=== PATIENT | male | born 1945 | race Caucasian/White ===

== ENCOUNTER 2020-10-28 19:19 | Outpatient (REF) | payer SELFPAY ==
[2020-10-28 19:49] LABS: Abs Immature Grans 0.03 10^3/uL (0.0-0.06); Absolute Basophil Count 0.11 10^3/uL (0.0-0.2); Absolute Eosinophil Count 0.47 10^3/uL (0.0-0.7); Absolute Lymphocyte Count 0.92 10^3/uL (1.2-3.4); Absolute Neutrophil Count 4.76 10^3/uL (1.2-6.7); Basophils % 1.6; Eosinophils % 6.7; HCT 31.7 % (40.0-50.0); HGB 10.4 g/dL (13.5-17.5); Immature Grans % 0.4; Lymphocytes % 13.2; MCH 31.7 pg (27.0-33.0); MCHC 32.8 % (32.0-36.0); MCV 96.6 fL (80-95); MPV 9.9 fL (8.0-11.0); Neutrophils % 68.1; Nucleated RBC 0 %; Platelet Count 72 10^3/uL (130-400); RBC 3.28 10^6/uL (4.36-5.78); RDW 15.7 % (11.8-14.1); RDW-SD 54.8 fL; WBC 6.99 10^3/uL (4.4-10.8)
[2020-10-28 19:57] LABS: Ammonia 135 umol/L (11-32)
[2020-10-28 20:00] LABS: Anion Gap 8.8 mmol/L (3-11); BUN 29 mg/dL (7-18); CO2 25.2 mmol/L (21.0-32.0); CREATININE 2.1 mg/dL (0.70-1.30); Chloride 105 mmol/L (98-107); Estimated GFR 30.86 (mL/min/1.73m2); Glucose 216 mg/dL (74-106); Sodium 139 mmol/L (136-145)
[2020-10-28 20:01] LABS: Calcium 8.4 mg/dL (8.5-10.1)
[2020-10-28 20:13] LABS: Diff Comment Agrees w/ Instrument; RBC Morphology Normal
[2020-10-31 15:37] LABS: COVID-19 RT-PCR Result Not Detected ((See Note))
== END 2020-10-28 19:20 | disposition home or self-care (01) ==
LOC: NCHCN 19:19
PROVIDERS: Visit Provider Family Medicine
DX: E11.9 Type 2 diabetes mellitus without complications (principal); K72.90 Hepatic failure, unspecified without coma; K76.6 Portal hypertension
CPT/HCPCS: 80048; U0003; 82140; 85025

== ENCOUNTER 2020-10-30 08:38 | Inpatient (IN) | payer MEDICARE, SELFPAY ==
[2020-10-30] VITALS (110 sets, daily range): BP systolic 87–168; BP diastolic 46–111; PULSE 50–95; RESP 8–22; TEMP 35.7–36.8; O2SAT 97–100
--- NOTE | 2020-10-30 08:30 | RT.EKG_ITS ---
APPROVED REPORT Exam: Resting ECG Patient Location: E HR:85 bpm ECG Measurements Heart Rate 85 AXIS TN [id number] P [id number] QRSd 100 QRS -10 QT 415 T 21 QTc 493 Conclusion Atrial fibrillation...V-rate 62-130, irreg A-activity Ventricular premature complex...V complex w/ short R-R interval Borderline ST depression, anterior leads...ST <-0.07mV, V2-V4 Physician: No STEMI, no prior for comparison
[2020-10-30] MEDS: Etomidate 20 MG/10 ML VIAL IVP (09:02)
[2020-10-30] MEDS: Rocuronium 50 MG/5 ML SYR 100 MG IVP (09:04)
[2020-10-30 09:06] LABS: Lactate 2.3 mmol/L (0.6-1.4)
[2020-10-30 09:08] LABS: Abs Immature Grans 0.02 10^3/uL (0.0-0.06); Absolute Basophil Count 0.08 10^3/uL (0.0-0.2); Absolute Eosinophil Count 0.48 10^3/uL (0.0-0.7); Absolute Lymphocyte Count 0.95 10^3/uL (1.2-3.4); Absolute Monocyte Count 0.63 10^3/uL (0.1-0.8); Absolute Neutrophil Count 4.76 10^3/uL (1.2-6.7); Basophils % 1.2; Eosinophils % 6.9; HCT 27.8 % (40.0-50.0); HGB 9.6 g/dL (13.5-17.5); Immature Grans % 0.3; Lymphocytes % 13.7; MCH 32.3 pg (27.0-33.0); MCHC 34.5 % (32.0-36.0); MCV 93.6 fL (80-95); MPV 8.8 fL (8.0-11.0); Monocytes % 9.1; Neutrophils % 68.8; Nucleated RBC 0 %; RBC 2.97 10^6/uL (4.36-5.78); RDW 15.5 % (11.8-14.1); RDW-SD 52.1 fL; WBC 6.92 10^3/uL (4.4-10.8)
[2020-10-30] MEDS: fentaNYL 100 MCG/2 ML VIAL (09:09)
[2020-10-30] MEDS: PROPOFOL 1,000 MG/100 ML BTL 11.856 MG IVPB (09:10)
[2020-10-30 09:21] LABS: INR 1.4 (0.9-1.1); PTT Activated 32.3 sec (21.0-27.5); Prothrombin Time 13.8 sec (9.3-11.0)
[2020-10-30 09:26] LABS: Platelet Count 68 10^3/uL (130-400)
--- NOTE | 2020-10-30 09:26 | DI.RAD_ITS ---
EXAM: XR PORTABLE CHEST AP POST LINE CLINICAL HISTORY: post intubation. TECHNIQUE: 2D digital imaging was performed. COMPARISON: No exams were available for comparison FINDINGS: The patient is intubated. Distal tip of the endotracheal tube is 3 cm above the kelly. Satisfactor y position. Mild cardiomegaly. The mediastinum is not widened. Multiple healed right-sided rib fractures. Some infiltrate is evidence of both lungs. No large pleu ral effusions evident on this portable view. Degenerative changes in the shoulders. IMPRESSION: Patchy infiltrates both lungs. No pleural effusions. Healed right rib fractures. No pneumothorax. Endotracheal tube is in satisfactory position. DATA REPOSITORY: RADIATION DOSE DELIVERED: All CT scans at this facility use at least one of these dose optimization techniques: automated exposure control; mA and/or kV adjustment per patient size (includes targeted e xams where dose is matched to clinical indication); or iterative reconstruction.
[2020-10-30 09:27] LABS: Diff Comment Diff Reviewed; RBC Morphology Normal
[2020-10-30 09:29] LABS: ALT 30 U/L (16-63); AST 33 U/L (15-37); Albumin 2.5 g/dL (3.4-5.0); Alkaline Phosphatase 126 U/L (46-116); Anion Gap 6.4 mmol/L (3-11); BUN 25 mg/dL (7-18); Bilirubin, Total 2.5 mg/dL (0.2-1.0); CO2 26.6 mmol/L (21.0-32.0); CREATININE 2.1 mg/dL (0.70-1.30); Chloride 109 mmol/L (98-107); Estimated GFR 30.86 (mL/min/1.73m2); Glucose 168 mg/dL (74-106); Sodium 142 mmol/L (136-145); TSH (W/Ref FT4) 1.71 uIU/mL (0.36-3.74); Total Protein 6.4 g/dL (6.4-8.2); Troponin I < 0.05 ng/mL (<0.06)
[2020-10-30 09:48] LABS: BE 1 mmol/L (-2-3); HCO3 25 mmol/L (22-26); pCO2 40 mmHg (35-45); pO2 320 mmHg (80-105)
[2020-10-30 09:49] LABS: FIO2 70 %; Site Right Radial; sO2 > 99 % (95-98)
[2020-10-30 09:51] LABS: Bilirubin Negative (Negative); Blood Negative (Negative); Clarity Clear (Clear); Glucose Negative (Negative); Ketones Negative (Negative); Leukocyte Esterase Negative (Negative); Nitrite Negative (Negative); Urobilinogen 0.2 EU/dL (Up TO 0.2); pH 5.5 (5-8)
--- NOTE | 2020-10-30 09:51 | DI.VRAD_ITS ---
PROCEDURE INFORMATION: Exam: XR Chest Exam date and time: 10/30/2020 9:20 AM Age: 74 years old Clinical indication: Device placement; Ett placement (vent status); Patient HX: Post intubation TECHNIQUE: Imaging protocol: XR of the chest. Views: 1 view. COMPARISON: No relevant prior studies available. FINDINGS: Tubes, catheters and devices: An endotracheal tube is present with its tip tip 3.8 cm above the kelly. Lungs: Patchy hazy infiltrates are present in the right lung which may represent pneumonia. Pleural spaces: Unremarkable. No pleural effusion. No pneumothorax. Heart/Mediastinum: The heart is not enlarged. There is calcification of the aorta. Bones/joints: There are multiple old healed right rib fractures. Prominent degenerative disease is present in the right shoulder joint. IMPRESSION: 1. The tip of the endotracheal tube is 3.8 cm above the kelly. 2. Patchy hazy right pulmonary infiltrates suspicious for pneumonia. Dictated and Authenticated by: Vaibhav Page MD. Ordering:THELMA Azar MD
--- NOTE | 2020-10-30 10:46 | W.ED.GENAD ---
Discharge Plan Disposition Patient Disposition: [facility] INPATIENT Condition: Serious Discharge Details Chief Complaint: AMS/LOC Clinical Impression: Encephalopathy, hepatic, Thrombocytopenia, Endotracheally intubated, Obtunded, Pneumonia Primary Care Provider: Unknown,Unknown ED Provider: Doe Hutchinson Home Meds and New Rx's Prescriptions: No Action Glucagon Emergency Kit 1 mg Kit 1 mg PRNRF: 0 torsemide 20 mg Tablet 40 mg RF: 0 dextrose [Glucose Gel] 40 % Gel 15 ml PO PRNRF: 0 venlafaxine 150 mg Capsule,Extended Release 24hr 150 mg PO RF: 0 magnesium hydroxide 400 mg/5 mL Suspension 400 mg PRNRF: 0 insulin aspart U-100 [Novolog U-100 Insulin aspart] 100 unit/mL Solution RF: 0 Fleet Enema 19-7 gram/118 mL Enema 1 ml MA RF: 0 omeprazole 20 mg Capsule,Delayed Release(Dr/Ec) 20 mg RF: 0 propranolol 20 mg Tablet 20 mg RF: 0 ondansetron 4 mg Tablet,Disintegrating 4 mg PRNRF: 0 spironolactone 50 mg Tablet 50 mg RF: 0 calcium carbonate 1,000 mg Tablet 1,000 mg PO RF: 0 heparin (porcine) 5,000 unit/0.5 mL Syringe 5,000 unit RF: 0 carboxymethylcellulose sodium 0.5 % Dropperette 1 drp RF: 0 lactulose 10 gram/15 mL Solution 15 ml RF: 0 acetaminophen 325 mg Capsule 325 mg RF: 0 Lantus Solostar U-100 Insulin 100 unit/mL (3 mL) Insulin Pen 40 unit SUBCUT RF: 0 rifaximin 550 mg Tablet 550 mg RF: 0 Medical Decision Making This is a 74-year-old male with a past medical history of liver failure, intermittent episodes of chronic encephalopathy, history of atrial fibrillation not on blood thinners currently, chronic anemia, diastolic heart failure, cervicalgia, lumbar radiculopathy, diabetes mellitus, history of alcohol dependence, hypertension, who presents for altered mental status. Patient was recently [facility], for hepatic encephalopathy and then recently transitioned recently transitioned to [facility] just 24 to 48 hours ago per EMS report. This morning when he was checked for feeding he was unresponsive, and otherwise altered. He could not be aroused, vitals were stable though. Blood sugar was stable. EMS was called, they do attempted to arouse the patient and were unsuccessful. Patient was brought to the ER. The patient cannot add any additional historical components. All of the patient's past medical history is otherwise garnered from paperwork from his most recent stay at the [facility]. Per EMS and staff at health [facility] rehab the patient is full code Exam demonstrates an obtunded and altered patient, vital signs are stable. Respiratory rate and respiratory status appears notably stable. GCS is between 3 and 5 secondary to what appears to be a chronic flexion of the upper extremities. No asterixis that I can elicit. Patient does not have an intact gag reflex. Airway is not currently protected. Intubation was performed by Demarco Colon, there were no complications, intubation successful. I was at bedside for the entire procedure. We will evaluate for cause of his altered mental status but Fauzia fact it is secondary to hepatic encephalopathy. We will get a CT scan of the head, monitor closely and admit. We will reach out to the [facility] for potential admission. EKG is unremarkable aside for A. fib. 1221 Laboratory work-up is returned, patient has no elevation in his white count, hemoglobin is 9.6 which is stable from when he was at the [facility]. Platelet is 68, but he does have a history of thrombocytopenia. INR PT and PTT are all slightly elevated likely secondary to his chronic liver failure, initial lactate is 2.3, likely hepatic related from his hepatic failure, chest x-ray does show evidence of patchy infiltrate on the right, suspect pneumonia, hospital-acquired versus aspiration. Will add Vanco and Zosyn. Covid testing is negative. Creatinine is 2.1, BUN 25. Ammonia is 130, and likely the cause of his current encephalopathy. CT head negative, thyroid function normal. [facility]inalysis [facility] stated at [facility] they cannot [facility] the patient in his current state. Patient will need to be admitted here for continued observation management and potential specialist consultation if indicated. I discussed the case with the hospitalist Dr. Glass, she agrees with the assessment and plan. We will place an NG tube down here. I have extensively reviewed the treatment plan with the patient. I have addressed all patient concerns at this time. I have also discussed the plan with the admitting physician and they agree with the current assessment and plan and have agreed to assume responsibility for the patient. All parties demonstrate verbal understanding and agreement with our assessment and plan at this time. The documentation in this chart was dictated using [employer] dictation software. Please excuse any dictation errors. FINDINGS: Tubes, catheters and devices: An endotracheal tube is present with its tip tip 3.8 cm above the kelly. Lungs: Patchy hazy infiltrates are present in the right lung which may represent pneumonia. Pleural spaces: Unremarkable. No pleural effusion. No pneumothorax. Heart/Mediastinum: The heart is not enlarged. There is calcification of the aorta. Bones/joints: There are multiple old healed right rib fractures. Prominent degenerative disease is present in the right shoulder joint. IMPRESSION: 1. The tip of the endotracheal tube is 3.8 cm above the kelly. 2. Patchy hazy right pulmonary infiltrates suspicious for pneumonia. Thank you for allowing us to participate in the care of your patient FINDINGS: Brain: There is mild generalized chronic atrophy. There is mild decreased white matter density consistent with chronic small vessel white matter ischemia. No intracranial hemorrhage, edema or other acute abnormalities are seen in the brain. There is mild mineralization of the basal ganglia. Cerebral ventricles: No ventriculomegaly. Bones/joints: Unremarkable. No acute fracture. Paranasal sinuses: There is a small air-fluid level in the right maxillary sinus. Mastoid air cells: Visualized mastoid air cells are well aerated. Soft tissues: Unremarkable. IMPRESSION: 1. Mild chronic atrophy and mild white matter ischemic changes. 2. No acute intracranial abnormality. Thank you for allowing us to participate in the care of your patiet Dictated and Authenticated by: Vaibhav Page MD 10/30/2020 11:10 AM Eastern Time ([place] & [place]) HPI General Date/Time Provider Initiated Documentation: 10/30/20 08:42. HPI Narrative: This is a 74-year-old male with a past medical history of liver failure, intermittent episodes of chronic encephalopathy, history of atrial fibrillation not on blood thinners currently, chronic anemia, diastolic heart failure, cervicalgia, lumbar radiculopathy, diabetes mellitus, history of alcohol dependence, hypertension, who presents for altered mental status. Patient was recently admitted at [facility], for hepatic encephalopathy and then recently transitioned recently transitioned to [facility] just 24 to 48 hours ago per EMS report. This morning when he was checked for feeding he was unresponsive, and otherwise altered. He could not be aroused, vitals were stable though. Blood sugar was stable. EMS was called, they do attempted to arouse the patient and were unsuccessful. Patient was brought to the ER. The patient cannot add any additional historical components. All of the patient's past medical history is otherwise garnered from paperwork from his most recent stay at the [facility]. Per EMS and staff at health [facility] rehab the patient is full code Related Data Home Medications Medication Instructions Recorded Confirmed acetaminophen 325 mg 10/30/20 calcium carbonate 1,000 mg PO 10/30/20 carboxymethylcellulose sodium 1 drp 10/30/20 dextrose [Glucose Gel] 15 ml PO PRN 10/30/20 glucagon [Glucagon Emergency Kit] 1 mg PRN 10/30/20 heparin (porcine) 5,000 unit 10/30/20 insulin aspart U-100 [Novolog 10/30/20 U-100 Insulin aspart] insulin glargine [Lantus Solostar 40 unit SUBCUT 10/30/20 10/30/20 U-100 Insulin] lactulose 15 ml 10/30/20 magnesium hydroxide 400 mg PRN 10/30/20 omeprazole 20 mg 10/30/20 ondansetron 4 mg PRN 10/30/20 propranolol 20 mg 10/30/20 rifaximin 550 mg 10/30/20 sodium phosphates [Fleet Enema] 1 ml MA 10/30/20 spironolactone 50 mg 10/30/20 torsemide 40 mg 10/30/20 venlafaxine 150 mg PO 10/30/20 Allergies Allergy/AdvReac Type Severity Reaction Status Date / Time adhesive tape Allergy Unverified 10/30/20 08:53 General Stated Complaint: AMS/LOC LEA: 1 Review of Systems All systems reviewed & are unremarkable except as noted in HPI and below PFSH Social History Smoking risk assessment performed?: No Additional Social history: resident @ [facility]&, unable to answer any questions at this time Exam Narrative Exam Narrative: 1.Const: Well-nourished, Well-developed, appearing stated age 2.Eyes: PERRL, no conjunctival injection, and symmetrical lids. 3.ENT: Atraumatic external nose and ears. Moist MM. Neck: Symmetric, trachea midline, No thyromegaly. 4.CVS: +S1/S2, No murmurs or gallops. Peripheral pulses 2+ and equal in all extremities. Brisk capillary refill in all extremities. 5.RESP: Unlabored respiratory effort. Clear to auscultation bilaterally. No wheezes rales or rhonchi 6.GI: Soft, Nontender/Nondistended, No hepatosplenomegaly. No guarding or rebound. Ostomy on the patient's left abdomen 7.MSK: Normocephalic/Atraumatic, Extremities w/o deformity or ttp No cyanosis or clubbing, Normal movement of all extremities 8.Skin: Warm, Dry. Chronic bruises throughout the hands and extremities, none around the head. Telangiectasias are present. Chronic anterior rosas skin breakdown, currently bandaged, however evaluation shows no evidence of large ulcer or evidence of active acute wound. 9.Neuro: GCS is somewhat difficult to discern between a 3 and a 5. Patient is flexed for his upper extremities and does resist extension, however he otherwise does not localize to pain. No other significant neurologic components can be seen. Evaluation of gag reflex does not seem to elicit any significant reflex 10.Psych: obtunded Course Vital Signs Vital signs: Vital Signs Pulse 68 10/30/20 09:00 Respiratory Rate 20 10/30/20 09:00 Pulse Oximetry 100 10/30/20 09:00 Temperature 36.8 C 10/30/20 09:22 Temperature Source Skin 10/30/20 09:22 Pulse 82 10/30/20 09:22 Respiratory Rate 9 L 10/30/20 09:22 Blood Pressure 116/65 10/30/20 09:22 Blood Pressure Position Sitting 10/30/20 09:22 Pulse Oximetry 100 10/30/20 09:22 Respiratory End-tidal CO2 33 10/30/20 09:10 Oxygen Delivery Method Room Air 10/30/20 09:22 Oxygen Flow Rate 0 10/30/20 09:22 Fraction of Inspired Oxygen (FIO2) 100 10/30/20 09:10 Comment 10/30/20 09:00 Lab/Test Results Lab/Test Results: 10/30/20 08:44 Blood Blood Culture - Pending 10/30/20 08:44 Blood Blood Culture - Pending Laboratory Tests Range/Units 10/30/20 10/30/20 10/30/20 08:55 08:55 08:55 WBC (4.4-10.8) 10^3/uL 6.92 RBC (4.36-5.78) 10^6/uL 2.97 L Hgb (13.5-17.5) g/dL 9.6 L Hct (40.0-50.0) % 27.8 L MCV (80-95) fL 93.6 MCH (27.0-33.0) pg 32.3 MCHC (32.0-36.0) % 34.5 RDW (11.8-14.1) % 15.5 H Plt Count (130-400) 10^3/uL 68 L MPV (8.0-11.0) fL 8.8 Immature Gran % 0.3 Neutrophils % 68.8 Lymphocytes % 13.7 Monocytes % 9.1 Eosinophils % 6.9 Basophils % 1.2 Nucleated RBC % % 0 Absolute Neutrophils (1.2-6.7) 10^3/uL 4.76 Absolute Lymphocytes (1.2-3.4) 10^3/uL 0.95 L Absolute Monocytes (0.1-0.8) 10^3/uL 0.63 Absolute Eosinophils (0.0-0.7) 10^3/uL 0.48 Absolute Basophils (0.0-0.2) 10^3/uL 0.08 RBC Morphology Normal PT (9.3-11.0) sec INR (0.9-1.1) APTT (21.0-27.5) sec ABG Sample Site ABG pH (7.35-7.45) ABG pCO2 (35-45) mmHg ABG pO2 (80-105) mmHg ABG HCO3 (22-26) mmol/L ABG O2 Saturation (95-98) % ABG Base Excess (-2-3) mmol/L VBG Lactate (0.6-1.4) mmol/L 2.3 H* Oxygen Liter Flow L FiO2 % Sodium (136-145) mmol/L 142 Potassium (3.5-5.1) mmol/L 4.0 Chloride (98-107) mmol/L 109 H Carbon Dioxide (21.0-32.0) mmol/L 26.6 Anion Gap (3-11) mmol/L 6.4 BUN (7-18) mg/dL 25 H Creatinine (0.70-1.30) mg/dL 2.1 H Estimated GFR/1.73 m2 (mL/min/1.73m2) 30.86 Glucose (74-106) mg/dL 168 H Calcium (8.5-10.1) mg/dL 8.0 L Total Bilirubin (0.2-1.0) mg/dL 2.5 H AST (15-37) U/L 33 ALT (16-63) U/L 30 Alkaline Phosphatase (46-116) U/L 126 H Troponin I (<0.06) ng/mL < 0.05 Total Protein (6.4-8.2) g/dL 6.4 Albumin (3.4-5.0) g/dL 2.5 L TSH (0.36-3.74) uIU/mL 1.71 Urine Color Urine Clarity Urine pH Ur Specific N[place]ma Urine Protein Urine Ketones Urine Blood Urine Nitrite Urine Bilirubin Urine Urobilinogen Ur Leukocyte Esterase Urine RBC Urine WBC Ur Epithelial Cells Urine Crystals Urine Bacteria Urine Casts Urine Mucus Urine Other Ur Culture Indicated? Urine Glucose Range/Units 10/30/20 10/30/20 10/30/20 08:55 09:05 09:38 WBC (4.4-10.8) 10^3/uL RBC (4.36-5.78) 10^6/uL Hgb (13.5-17.5) g/dL Hct (40.0-50.0) % MCV (80-95) fL MCH (27.0-33.0) pg MCHC (32.0-36.0) % RDW (11.8-14.1) % Plt Count (130-400) 10^3/uL MPV (8.0-11.0) fL Immature Gran % Neutrophils % Lymphocytes % Monocytes % Eosinophils % Basophils % Nucleated RBC % % Absolute Neutrophils (1.2-6.7) 10^3/uL Absolute Lymphocytes (1.2-3.4) 10^3/uL Absolute Monocytes (0.1-0.8) 10^3/uL Absolute Eosinophils (0.0-0.7) 10^3/uL Absolute Basophils (0.0-0.2) 10^3/uL RBC Morphology PT (9.3-11.0) sec 13.8 H INR (0.9-1.1) 1.4 H APTT (21.0-27.5) sec 32.3 H ABG Sample Site ABG pH (7.35-7.45) ABG pCO2 (35-45) mmHg ABG pO2 (80-105) mmHg ABG HCO3 (22-26) mmol/L ABG O2 Saturation (95-98) % ABG Base Excess (-2-3) mmol/L VBG Lactate (0.6-1.4) mmol/L Oxygen Liter Flow L FiO2 % Sodium (136-145) mmol/L Potassium (3.5-5.1) mmol/L Chloride (98-107) mmol/L Carbon Dioxide (21.0-32.0) mmol/L Anion Gap (3-11) mmol/L BUN (7-18) mg/dL Creatinine (0.70-1.30) mg/dL Estimated GFR/1.73 m2 (mL/min/1.73m2) Glucose (74-106) mg/dL Calcium (8.5-10.1) mg/dL Total Bilirubin (0.2-1.0) mg/dL AST (15-37) U/L ALT (16-63) U/L Alkaline Phosphatase (46-116) U/L Troponin I (<0.06) ng/mL Total Protein (6.4-8.2) g/dL Albumin (3.4-5.0) g/dL TSH (0.36-3.74) uIU/mL Urine Color Cancelled Yellow Urine Clarity Cancelled Clear Urine pH Cancelled 5.5 Ur Specific N[place]ma Cancelled 1.020 Urine Protein Cancelled Negative Urine Ketones Cancelled Negative Urine Blood Cancelled Negative Urine Nitrite Cancelled Negative Urine Bilirubin Cancelled Negative Urine Urobilinogen Cancelled 0.2 Ur Leukocyte Esterase Cancelled Negative Urine RBC Cancelled Urine WBC Cancelled Ur Epithelial Cells Cancelled Urine Crystals Cancelled Urine Bacteria Cancelled Urine Casts Cancelled Urine Mucus Cancelled Urine Other Cancelled Ur Culture Indicated? Cancelled Urine Glucose Cancelled Negative Range/Units 10/30/20 09:45 WBC (4.4-10.8) 10^3/uL RBC (4.36-5.78) 10^6/uL Hgb (13.5-17.5) g/dL Hct (40.0-50.0) % MCV (80-95) fL MCH (27.0-33.0) pg MCHC (32.0-36.0) % RDW (11.8-14.1) % Plt Count (130-400) 10^3/uL MPV (8.0-11.0) fL Immature Gran % Neutrophils % Lymphocytes % Monocytes % Eosinophils % Basophils % Nucleated RBC % % Absolute Neutrophils (1.2-6.7) 10^3/uL Absolute Lymphocytes (1.2-3.4) 10^3/uL Absolute Monocytes (0.1-0.8) 10^3/uL Absolute Eosinophils (0.0-0.7) 10^3/uL Absolute Basophils (0.0-0.2) 10^3/uL RBC Morphology PT (9.3-11.0) sec INR (0.9-1.1) APTT (21.0-27.5) sec ABG Sample Site Right radial ABG pH (7.35-7.45) 7.40 ABG pCO2 (35-45) mmHg 40 ABG pO2 (80-105) mmHg 320 H ABG HCO3 (22-26) mmol/L 25 ABG O2 Saturation (95-98) % > 99 H ABG Base Excess (-2-3) mmol/L 1 VBG Lactate (0.6-1.4) mmol/L Oxygen Liter Flow L Vt 410 rr 15 peep 5 FiO2 % 70 Sodium (136-145) mmol/L Potassium (3.5-5.1) mmol/L Chloride (98-107) mmol/L Carbon Dioxide (21.0-32.0) mmol/L Anion Gap (3-11) mmol/L BUN (7-18) mg/dL Creatinine (0.70-1.30) mg/dL Estimated GFR/1.73 m2 (mL/min/1.73m2) Glucose (74-106) mg/dL Calcium (8.5-10.1) mg/dL Total Bilirubin (0.2-1.0) mg/dL AST (15-37) U/L ALT (16-63) U/L Alkaline Phosphatase (46-116) U/L Troponin I (<0.06) ng/mL Total Protein (6.4-8.2) g/dL Albumin (3.4-5.0) g/dL TSH (0.36-3.74) uIU/mL Urine Color Urine Clarity Urine pH Ur Specific [place] Urine Protein Urine Ketones Urine Blood Urine Nitrite Urine Bilirubin Urine Urobilinogen Ur Leukocyte Esterase Urine RBC Urine WBC Ur Epithelial Cells Urine Crystals Urine Bacteria Urine Casts Urine Mucus Urine Other Ur Culture Indicated? Urine Glucose Procedures Intubation Time out performed: Yes sedative: Etomidate Mg Given: 20 paralytic: Rocuronium Mg Given: 20 Laryngoscope: other (cmac) ET Tube Size: 7 ET Tube Uncuffed: Yes Tube Secured Depth (cm): 21 Tube Secured Location: teeth Tube Placement Confirmation: visualized tube passing through cords and equal breath sounds bilaterally Patient Tolerated Procedure: well Intubation Complications: none
--- NOTE | 2020-10-30 10:47 | DI.CT_ITS ---
EXAM: CT HEAD WO CLINICAL HISTORY: altered. TECHNIQUE: Imaging Protocol: Axial computed tomography images with coronal and sagittal reformatted images were created and reviewed COMPARISON: No exams were available for comparison FINDINGS: There are no skull fractures. There is a small fluid level in the right maxillary sinus consistent with sinusitis. Left maxillary sinus is clear as are the sphenoid and frontal sinuses and ethmoidal air cells. There is no fluid in the mastoid air cells although these are partially sclerotic. There is no evidence of intracranial hemorrhage, mass effect, or shift of midline structures. There are no extra-axial fluid collections. The ventricles are not enlarged or shifted and there is no blo od within the ventricular system nor within the basal cisterns. IMPRESSION: No acute intracranial findings on this noninfused CT scan of the brain. Right maxillary sinusitis. RADIATION DOSE DELIVERED: 1,860.07mGy.cm Total DLP DATA REPOSITORY: All CT scans at this facility are submitted to the National Radiology Data Registry (NRDR) Dose Index Registry (DIR) with the [employer] ([employer]). RADIATION OPTIMIZATION: All CT scans at this facility use at least one of these dose optimization te chniques: automated exposure control; mA and/or kV adjustment per patient size (includes targeted exa ms where dose is matched to clinical indication); or iterative reconstruction.
--- NOTE | 2020-10-30 11:10 | DI.VRAD_ITS ---
PROCEDURE INFORMATION: Exam: CT Head Without Contrast Exam date and time: 10/30/2020 10:37 AM Age: 74 years old Clinical indication: Altered mental status/memory loss; Other: ? TECHNIQUE: Imaging protocol: Computed tomography of the head without contrast. Radiation optimization: All CT scans at this facility use at least one of these dose optimization techniques: automated exposure control; mA and/or kV adjustment per patient size (includes targeted exams where dose is matched to clinical indication); or iterative reconstruction. COMPARISON: No relevant prior studies available. FINDINGS: Brain: There is mild generalized chronic atrophy. There is mild decreased white matter density consistent with chronic small vessel white matter ischemia. No intracranial hemorrhage, edema or other acute abnormalities are seen in the brain. There is mild mineralization of the basal ganglia. Cerebral ventricles: No ventriculomegaly. Bones/joints: Unremarkable. No acute fracture. Paranasal sinuses: There is a small air-fluid level in the right maxillary sinus. Mastoid air cells: Visualized mastoid air cells are well aerated. Soft tissues: Unremarkable. IMPRESSION: 1. Mild chronic atrophy and mild white matter ischemic changes. 2. No acute intracranial abnormality. Dictated and Authenticated by: Vaibhav Page MD. Ordering:THELMA Azar MD
[2020-10-30] MEDS: Normal Saline 500 ML IV (11:23)
[2020-10-30] MEDS: PIPERACILLIN/TAZO 3.375 GM in Normal Saline 50 ML IVPB ×2 (11:39→17:29)
[2020-10-30 11:49] LABS: COVID-19 PCR Negative (Negative)
[2020-10-30 11:52] LABS: Ammonia 130 umol/L (11-32)
[2020-10-30 12:03] LABS: BE 1 mmol/L (-2-3); HCO3 25 mmol/L (22-26); pCO2 36 mmHg (35-45); pH 7.45 (7.35-7.45); pO2 107 mmHg (80-105); sO2 99 % (95-98); tCO2 23 mmol/L (23-27)
[2020-10-30 12:05] LABS: FIO2 21 %; Site Right Radial
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
--- NOTE | 2020-10-30 12:27 | DI.RAD_ITS ---
EXAM: XR PORTABLE CHEST AP POST LINE CLINICAL HISTORY: gastric tube placement confirmation. TECHNIQUE: 2D digital imaging was performed. COMPARISON: CR,XR XR PORTABLE CHEST AP POST LINE from 10/30/2020 FINDINGS: Patient is intubated. Distal tip of the endotracheal tube is in satisfactory position above the flaco na. An NG tube is now noted in the stomach. Distal aspect of the NG tube is in the proximal stomach . Some infiltrate in both lung bases is noted. No pulmonary edema. No obvious pleural effusions. IMPRESSION: No acute pulmonary findings on this single AP portable view of the chest. DATA REPOSITORY: RADIATION DOSE DELIVERED: All CT scans at this facility use at least one of these dose optimization techniques: automated exposure control; mA and/or kV adjustment per patient size (includes targeted e xams where dose is matched to clinical indication); or iterative reconstruction.
[2020-10-30] MEDS: VANCOMYCIN 2,000 MG in Normal Saline 500 ML 333.3333 MG IVPB (12:32)
--- NOTE | 2020-10-30 12:42 | DI.VRAD_ITS ---
PROCEDURE INFORMATION: Exam: XR Chest Exam date and time: 10/30/2020 12:25 PM Age: 74 years old Clinical indication: Device placement; Other: Og tube TECHNIQUE: Imaging protocol: XR of the chest. Views: 1 view. COMPARISON: CR XR PORTABLE CHEST AP POST LINE 10/30/2020 9:18 AM FINDINGS: Tubes, catheters and devices: An endotracheal tube is present with the tip about 5 cm above the kelly. A orogastric tube is present with the tip projecting in the stomach in the left upper quadrant. Lungs: There is mild patchy infiltrate in the right base which has improved since previous study. Pleural spaces: Unremarkable. No pleural effusion. No pneumothorax. Heart/Mediastinum: Unremarkable. No cardiomegaly. Bones/joints: Unremarkable. IMPRESSION: 1. Satisfactory position of the endotracheal tube and orogastric tube. 2. Improving basilar infiltrates. Dictated and Authenticated by: Vaibhav Page MD. Ordering:THELMA Azar MD
--- OUTSIDE RECORDS SUMMARY | 2020-10-30 12:54 | XMS_ITS ---
:1945 Author Care Team Providers Name Role Phone DENISE GIRON Primary Care Provider [phone] RASHARD MELGAR General Surgeon [phone] Allergies Code Code System Name Reaction Severity Status Onset Adhesive Tape ? ? Active ? NKDA ? Medications Name Status Start Date Stop Date ? ? acetaminophen Completed 05/31/2020 07/14/2020 500 mg- take two tabs by mouth twice daily as needed for pain acetaminophen 500 mg tablet Active 07/14/2020 Not available Take 2 tablets twice a day by oral route as needed. Blood Glucose Test strips Active 07/14/2020 Not av ailable Take 1 strip 5 times a day by miscell. route. camphor-menthol 0.5 %-0.5 % lotion Active 07/14/2020 Not available 1 application as needed by topical route. carboxymethylcellulose 0.5 %-glycerin 0.9 % (PF) eye drops Compl eted 05/31/2020 07/14/2020 Apply 1 drop 3 times a day by ophthalmic route as needed. carboxymethylcellulose sodium 0.5 % eye drops Active Not available Apply 1 drop 4 times a day by ophthalmic route as needed. cephalexin 500 mg tablet Completed ? 018 Take 1 tablet every 6 hours by oral route for 5 days. clindamycin HCl 300 mg capsule Completed 05/31/2020 0 07/14/2020 Take 1 capsule 4 times a day by oral route for 10 days. clobetasol 0.05 % topical cream Active 07/14/2020 Not available Apply 1 application twice a day by topical route as needed. ferrous sulfate 325 mg (65 mg iron) tablet Completed 04/1805/31/2020 Take 1 tablet twice a day by oral route. Fish Oil 1,000 mg (120 mg-180 mg) capsule Completed 201805/31/2020 Take 1 capsule twice a day by oral route. furosemide 20 mg tablet Completed 06/04/2018 06/25/20 18 Take 2 tablets every day by oral route. gabapentin 300 mg capsule Active 07/14/2020 Not av ailable Take 1 capsule 3 times a day by oral route. Humalog KwikPen (U-100) Insulin 100 unit/mL subcutaneous Active 07/14/2020 Not available Sliding Scale <100 zero units, 101-130 2 un, 131-150 3 un, 151-170 4 un, 171- 190 5 un, 191-210 6 un, 211-230 7 un, 231-250 8 un, 251-270 9 un, 271-290 10 un. insulin glargine (U-100) 100 unit/mL (3 mL) subcutaneous pen Act papi 07/14/2020 Not available Inject 70 units every day by subcutaneous route at bedtime. Lactulose (for Encephalopathy) 10 g/15 mL oral solution Complete d 04/18/2019 05/31/2020 Take 30 mL 3 times a day by oral route. increased from QD lactulose 10 gram/15 mL (15 mL) oral solution Active Not available Take 30 mL 4 times a day by oral route. lactulose 10 gram/15 mL oral solution Completed 06/04/2018 06/25/2018 Take 30 mL 4 times a day by oral route. Lantus U-100 Insulin 100 unit/mL subcutaneous solution Completed 04/18/2019 05/31/2020 Inject 40 units twice a day by subcutaneous route. dose increased from 30 units BID melatonin 3 mg tablet Active 07/14/2020 Not availa ble Take 1 tablet every day by oral route at bedtime. metformin 1,000 mg tablet Completed 05/19/20182017 Take 1 tablet twice a day by oral route. metolazone 2.5 mg tablet Active 07/14/2020 Not maren ilable Take 1 tablet 3 times a week by oral route as directed. metolazone 5 mg tablet Active ? Not avail able Take 1 tablet every day by oral route for 7 days. Miralax 17 gram/dose oral powder Active 07/14/2020 Not available Take 17 g every day by oral route. Motrin IB 200 mg tablet Completed 05/19/2018 06/04/20 18 Take 2 tablets every 6 hours by oral route as needed. Nitrostat 0.4 mg sublingual tablet Active 07/14/[address] 1 TABLET (0.4 MG) BY SUBLINGUAL R OUTE EVERY 5 MINUTES NEEDED FOR CHEST PAIN. DO NOT EXCEED 3 DOSES IN 15 MINUTES. Novolog Flexpen U-100 Insulin aspart 100 unit/mL (3 mL) subc utaneous Completed 04/18/2019 05/31/2020 Inject 1 unit 3 times a day by subcutaneous route as needed. omeprazole 20 mg capsule,delayed release Active 021 Not available Take 1 capsule every day by oral route in the morning. potassium chloride 40 mEq/L in 0.9 % sodium chloride intrave nous Completed 04/18/2019 05/31/2020 75 mL/hr continuous potassium chloride ER 10 mEq tablet,extended release Active 07/14/2020 Not available Take 2 tablets every day by oral route as directed. potassium chloride ER 20 mEq tablet,extended release Completed ? 05/19/2018 Take 1 tablet twice a day by oral route. pravastatin 10 mg tablet Completed 04/18/2019 020 Take 1 tablet every day by oral route in the evening. propranolol 20 mg tablet Active 07/14/2020 Not maren ilable Take 1 tablet twice a day by oral route. propranolol ER 80 mg capsule,24 hr,extended release Completed 05/19/2018 06/04/2018 Take 1 capsule every day by oral route in the morning. rifaximin 550 mg tablet Active 07/14/2020 Not avai lable Take 1 tablet twice a day by oral route. Silvadene 1 % topical cream Completed ? 05/09 APPLY A 1/16 INCH (1.5 MM) THICK LAYER TO ENTIRE BURN AREA BY TOPICALROUTE 2 TIMES PER DAY simethicone 80 mg chewable tablet Active 07/14/2020 Not available Take 1 tablet 3 times a day by oral route as needed. spironolactone 100 mg tablet Active 07/14/2020 Not available Take 1 tablet every day by oral route. spironolactone 25 mg tablet Completed 04/18/201905/09 Take 2 tablets every day by oral route. terbinafine HCl 1 % topical cream Active 07/14/2020 Not available APPLY TO THE AFFECTED AND SURROUNDING A REAS OF SKIN BY TOPICAL ROUTE twice a day as needed thiamine HCl (vitamin B1) 100 mg tablet Active 07/14/19 21 Not available Take 1 tablet every day by oral route. torsemide 100 mg tablet Active 07/14/2020 Not avai lable Take 1 tablet twice a day by oral route as directed. torsemide 20 mg tablet Completed 04/18/2019 0 Take 20 mg every 24 hours by oral route. decreased from 80 mg QD trazodone 100 mg tablet Active 07/14/2020 Not avai lable Take 100 mg every 24 hours by oral route at bedtime. venlafaxine 75 mg tablet Completed 04/18/2019 020 Take 1 tablet every day by oral route in the morning. venlafaxine ER 150 mg capsule,extended release 24 hr Active 07/14/2020 Not available Take 1 capsule every day by oral route. Notes: Aloh/Diph/Mag/Lido/Simet (Magic Mouthwash); 1 tsp once daily PRN; Menthol-Methyl Salicylate 10-15% topical every 6 hours PRN; carboxymethylcellulose 0.5% both eyes 4 times daily PRN; Med Rec Updated 10/16/20 mso per [facility] Problems Name Status Onset Date Source ? Type 2 Diabetes Mellitus Active 05/15/2018 ? Diabetic Peripheral Neuropathy Active 05/15/2018 ? Hyperlipidemia Active 05/15/2018 ? Secondary Thrombocytopenia Active 05/15/2018 ? Alcohol Dependence Active 05/15/2018 ? Insomnia Active 05/15/2018 ? Aortic Valve Stenosis Active 05/15/2018 ? Atrial Fibrillation Active 05/15/2018 ? Heart Failure with Normal Ejection Active 05/15/2018 ? 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 Hepatic Encephalopathy Active 05/15/2018 ? Gallstone Unknown 05/15/2018 ? Osteoarthritis Active 05/15/2018 ? Degeneration of Lumbar Intervertebral Active 05/15/2018 ? Disc Lumbar Radiculopathy Active 05/15/2018 ? Amnesia Unknown 05/15/2018 ? Splenomegaly Active 05/15/2018 ? 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 Diabetes Mellitus Anemia Active 06/24/2018 ? Depressive Disorder Active 06/24/2018 ? Hypertensive Disorder Active 06/24/2018 ? Gastroesophageal Reflux Disease Active 06/24/2018 ? History of Gastrointestinal Bleed Active 06/24/2018 ? 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 Mood Disorder Active ? History Pain Active ? History Procedures Date Name Performed by ? 05/13/2018 Release [employer] Information not available ? Hernia Repair Ventral Information not av ailable Results Lab Results Date Name Specimen Result Interpretation Description Value Range Status Address ? 08/04/2020 Renal S High g/r 152 mg/dL 74-106 Final [place] Function mg/dL [facility], Serum Hosp ital Lab (Internal) : [address] ? ? S High Bun 56 mg/dL 9-20 Final [place] mg/dL [facility] [address] ? ? S High Crea 2.50 mg/dL 0.66-1.25 Final [facility] mg/dL [facility] ([facility] : [address] ? ? S ? Ca 8.5 mg/dL 8.4-10.2 Final [place] mg/dL [facility] ([facility] : [address] ? ? S ? Phos 3.3 mg/dL 2.5-4.5 Final [place] mg/dL [facility] ([facility] : [address] ? ? S Low Na 134 mmol/L 137-145 Final [place] mmol/L [facility] ([facility] : [address] ? ? S ? K 4.2 mmol/L 3.5-5.1 Final [place] mmol/L [facility] ([facility] : [address] ? ? S ? Cl 99 mmol/L 98-107 Final [place] mmol/L [facility] (Internal) : [address] ? ? S ? Tco2 27.0 22.0-30.0 Final [place] mmol/L mmol/L [facility] ([facility]) : [address] ? ? S Low Alb 2.8 g/dL 3.5-5.0 Final [place] g/dL [facility] ([facility] : [address] ? ? S Low GFR 25 >89 Final [facility] (Calc) [facility] : [address] 07/14/2020 Cbc BLD ? Wbc 5.7 5.0-10.0 Final Nort h 10*3/uL 10*3/uL [facility] ([facility] : [address] ? ? BLD Low Rbc 3.48 4.60-6.00 Final [place] 10*6/uL 10*6/uL [facility] (Internal) : [address] ? ? BLD Low Hgb 11.0 g/dL 14.0-18.0 Final Nort h g/dL [facility] (Internal) : [address] ? ? BLD Low Hct 32.5 % 41.0-51.0 Final [facility] (Internal) : [address] ? ? BLD ? Mcv 93.4 fL 80.0-96.0 Final [facility] L [facility] (Internal) : [address] ? ? BLD ? Mch 31.6 pg 26.0-32.0 Final [facility] L ab (Internal) : [address] ? ? BLD ? Mchc 33.8 g/dL 31.0-35.0 Final Nort h g/dL [facility] (Internal) : [address] ? ? BLD High Rdw 14.8 % 11.5-14.5 Final [facility] (Internal) : [address] ? ? BLD CRITICAL Plt 47 10*3/uL 130-450 Final [place] LOW 10*3/uL [facility] (Internal) : [address] ? ? BLD ? Anc 3.41 ? Final [place] 10*3/uL [facility] (Internal) : [address] 07/14/2020 BMP, Serum or S High g/r 332 mg/dL 74-106 Fin al [place] Plasma mg/dL [facility] (Internal) : [address] ? ? S High Bun 61 mg/dL 9-20 Final [place] mg/dL [facility] (Internal) : [address] ? ? S High Crea 2.80 mg/dL 0.66-1.25 Final [place] mg/dL [facility] (Internal) : [address] ? ? S ? Ca 9.4 mg/dL 8.4-10.2 Final [place] mg/dL [facility] ([facility] : [address] ? ? S Low Na 136 mmol/L 137-145 Final [place] mmol/L [facility] ([facility] : [address] ? ? S ? K 3.6 mmol/L 3.5-5.1 Final [place] mmol/L [facility] ([facility] : [address] ? ? S Low Cl 92 mmol/L 98-107 Final [place] mmol/L [facility] ([facility] : [address] ? ? S High Tco2 37.0 22.0-30.0 Final [place] mmol/L mmol/L [facility] ([facility] : [address] 07/13/2020 BMP, Serum or S High g/r 167 mg/dL 74-106 Fin al [place] Plasma mg/dL [facility] ([facility] : [address] ? ? S High Bun 62 mg/dL 9-20 Final [place] mg/dL [facility] ([facility] : [address] ? ? S High Crea 2.60 mg/dL 0.66-1.25 Final [place] [facility] mg/dL [facility] ([facility] : [address] ? ? S ? Ca 9.4 mg/dL 8.4-10.2 Final [place] mg/dL [facility] ([facility] : [address] ? ? S ? Na 140 mmol/L 137-145 Final [place] mmol/L [facility] ([facility] : [address] ? ? S ? K 3.5 mmol/L 3.5-5.1 Final [place] mmol/L [facility] ([facility] : [address] ? ? S ? Cl 100 mmol/L 98-107 Final [place] mmol/L [facility] ([facility] : [address] ? ? S High Tco2 32.0 22.0-30.0 Final [place] mmol/L mmol/L [facility] ([facility] : [address] 07/13/2020 Cbc BLD ? Wbc 6.4 5.0-10.0 Final Nort h 10*3/uL 10*3/uL [facility] (Internal) : [address] ? ? BLD Low Rbc 3.45 4.60-6.00 Final [place] 10*6/uL 10*6/uL [facility] (Internal) : [address] ? ? BLD Low Hgb 11.1 g/dL 14.0-18.0 Final Nort h g/dL [facility] (Internal) : [address] ? ? BLD Low Hct 32.6 % 41.0-51.0 Final [facility] L [facility] (Internal) : [address] ? ? BLD ? Mcv 94.5 fL 80.0-96.0 Final [facility] L [facility] (Internal) : [address] ? ? BLD High Mch 32.2 pg 26.0-32.0 Final [facility] L ab (Internal) : [address] ? ? BLD ? Mchc 34.0 g/dL 31.0-35.0 Final Nort h g/dL [facility] (Internal) : [address] ? ? BLD High Rdw 15.2 % 11.5-14.5 Final [facility] L ab (Internal) : [address] ? ? BLD CRITICAL Plt 46 10*3/uL 130-450 Final [place] LOW 10*3/uL [facility] (Internal) : [address] ? ? BLD ? Anc 4.12 ? Final [place] 10*3/uL [facility] (Internal) : [address] 06/06/2020 Renal S High g/r 362 mg/dL 74-106 Final [place] Function mg/dL [facility], Serum Hosp ital Lab (Internal) : [address] ? ? S High Bun 39 mg/dL 9-20 Final [place] mg/dL [facility] (Internal) : [address] ? ? S High Crea 2.10 mg/dL 0.66-1.25 Final [facility] mg/dL [facility] ([facility] : [address] ? ? S ? Ca 8.6 mg/dL 8.4-10.2 Final [place] mg/dL [facility] : [address] ? ? S ? Phos 2.8 mg/dL 2.5-4.5 Final [place] mg/dL [facility] ([facility] : [address] ? ? S Low Na 136 mmol/L 137-145 Final [place] mmol/L [facility] ([facility] : [address] ? ? S ? K 4.4 mmol/L 3.5-5.1 Final [place] mmol/L [facility] ([facility] : [address] ? ? S ? Cl 100 mmol/L 98-107 Final [place] mmol/L [facility] ([facility] : [address] ? ? S High Tco2 31.0 22.0-30.0 Final [place] mmol/L mmol/L [facility] ([facility]) : [address] ? ? S Low Alb 3.0 g/dL 3.5-5.0 Final [place] g/dL [facility] ([facility] : [address] ? ? S Low GFR 31 >89 Final [facility] (Calc) [facility] : [address] 06/06/2020 Renal S High g/r 359 mg/dL 74-106 Final [place] Function mg/dL [facility], Serum Hosp ital Lab (Internal) : [address] ? ? S High Bun 39 mg/dL 9-20 Final [place] mg/dL [facility] : [address] ? ? S High Crea 2.10 mg/dL 0.66-1.25 Final [facility] mg/dL [facility] ([facility] : [address] ? ? S ? Ca 8.6 mg/dL 8.4-10.2 Final [facility] mg/dL [facility] ([facility] : [address] ? ? S ? Phos 2.8 mg/dL 2.5-4.5 Final [place] mg/dL [facility] ([facility] : [address] ? ? S Low Na 136 mmol/L 137-145 Final [place] mmol/L [facility] (Internal) : [address] ? ? S ? K 4.4 mmol/L 3.5-5.1 Final [place] mmol/L [facility] (Internal) : [address] ? ? S ? Cl 99 mmol/L 98-107 Final [place] mmol/L [facility] (Internal) : [address] ? ? S High Tco2 31.0 22.0-30.0 Final [place] mmol/L mmol/L [facility] (Internal) : [address] ? ? S Low Alb 3.0 g/dL 3.5-5.0 Final [place] g/dL [facility] (Internal) : [address] ? ? S Low GFR 31 >89 Final [place] (Calc) [facility] (Internal) : [address] 05/31/2020 Cbc BLD ? Wbc 6.9 5.0-10.0 Final Nort h 10*3/uL 10*3/uL [facility] : [address] ? ? BLD Low Rbc 3.76 4.60-6.00 Final [place] 10*6/uL 10*6/uL [facility] (Internal) : [address] ? ? BLD Low Hgb 12.0 g/dL 14.0-18.0 Final Nort h g/dL [facility] (Internal) : [address] ? ? BLD Low Hct 36.2 % 41.0-51.0 Final [place] % [facility] (Internal) : [address] ? ? BLD High Mcv 96.3 fL 80.0-96.0 Final [place] fL [facility] (Internal) : [address] ? ? BLD ? Mch 31.9 pg 26.0-32.0 Final [place] pg [facility] (Internal) : [address] ? ? BLD ? Mchc 33.1 g/dL 31.0-35.0 Final Nort [facility] g/dL [facility] ([facility] : [address] ? ? BLD High Rdw 15.8 % 11.5-14.5 Final [facility] % [facility] : [address] ? ? BLD Low Plt 62 10*3/uL 130-450 Final [place] 10*3/uL [facility] (Internal) : [address] ? ? BLD ? Anc 4.05 ? Final [place] 10*3/uL [facility] (Internal) : [address] 05/31/2020 BMP, Serum or S High g/r 223 mg/dL 74-106 Fin al [place] Plasma mg/dL [facility] ([facility] : [address] ? ? S High Bun 39 mg/dL 9-20 Final [place] mg/dL [facility] (Internal) : [address] ? ? S High Crea 1.90 mg/dL 0.66-1.25 Final [place] mg/dL [facility] (Internal) : [address] ? ? S ? Ca 8.7 mg/dL 8.4-10.2 Final [place] mg/dL [facility] (Internal) : [address] ? ? S ? Na 139 mmol/L 137-145 Final [place] mmol/L [facility] (Internal) : [address] ? ? S ? K 3.6 mmol/L 3.5-5.1 Final [place] mmol/L [facility] (Internal) : [address] ? ? S ? Cl 104 mmol/L 98-107 Final [place] mmol/L [facility] (Internal) : [address] ? ? S ? Tco2 30.0 22.0-30.0 Final [place] mmol/L mmol/L [facility] (Internal) : [address] 05/30/2020 Lactic Acid, S ? La 1.2 mmol/L 0.7-2.1 Fi nal [place] Blood mmol/L [facility] : [address] 05/30/2020 Cbc BLD ? Wbc 6.5 5.0-10.0 Final Nort h 10*3/uL 10*3/uL [facility] (Internal) : [address] ? ? BLD Low Rbc 3.43 4.60-6.00 Final [place] 10*6/uL 10*6/uL [facility] (Internal) : [address] ? ? BLD Low Hgb 10.9 g/dL 14.0-18.0 Final Nort h g/dL [facility] (Internal) : [address] ? ? BLD Low Hct 33.6 % 41.0-51.0 Final [facility] L ab (Internal) : [address] ? ? BLD High Mcv 98.0 fL 80.0-96.0 Final [facility] L [facility] (Internal) : [address] ? ? BLD ? Mch 31.8 pg 26.0-32.0 Final [facility] L ab (Internal) : [address] ? ? BLD ? Mchc 32.4 g/dL 31.0-35.0 Final Nort h g/dL [facility] (Internal) : [address] ? ? BLD High Rdw 16.1 % 11.5-14.5 Final [facility] L ab (Internal) : [address] ? ? BLD Low Plt 52 10*3/uL 130-450 Final [place] 10*3/uL [facility] L ab (Internal) : [address] ? ? BLD ? Anc 3.95 ? Final [place] 10*3/uL [facility] L ab (Internal) : [address] 05/30/2020 BMP, Serum or S High g/r 247 mg/dL 74-106 Fin al [place] Plasma mg/dL [facility] (Internal) : [address] ? ? S High Bun 34 mg/dL 9-20 Final [place] mg/dL [facility] (Internal) : [address] ? ? S High Crea 1.70 mg/dL 0.66-1.25 Final [facility] mg/dL [facility] : [address] ? ? S Low Ca 8.1 mg/dL 8.4-10.2 Final [place] mg/dL [facility] ([facility] : [address] ? ? S Low Na 136 mmol/L 137-145 Final [place] mmol/L [facility] (Internal) : [address] ? ? S ? K 4.0 mmol/L 3.5-5.1 Final [place] mmol/L [facility] (Internal) : [address] ? ? S ? Cl 106 mmol/L 98-107 Final [place] mmol/L [facility] (Internal) : [address] ? ? S ? Tco2 26.0 22.0-30.0 Final [place] mmol/L mmol/L [facility] (Internal) : [address] 05/30/2020 Glucose, S High g/r 404 mg/dL 74-106 Final N orth Serum or mg/dL [facility] : [address] [facility] 05/29/2020 Lactic Acid, S High La 2.7 mmol/L 0.7-2.1 Fi nal [place] Blood mmol/L [facility] (Internal) : [address] 05/29/2020 Cbc BLD ? Wbc 6.1 5.0-10.0 Final Nort h 10*3/uL 10*3/uL [facility] (Internal) : [address] ? ? BLD Low Rbc 3.60 4.60-6.00 Final [place] 10*6/uL 10*6/uL [facility] (Internal) : [address] ? ? BLD Low Hgb 11.5 g/dL 14.0-18.0 Final Nort h g/dL [facility] (Internal) : [address] ? ? BLD Low Hct 36.0 % 41.0-51.0 Final [place] % [facility] (Internal) : [address] ? ? BLD High Mcv 100.0 fL 80.0-96.0 Final [facility] L [facility] (Internal) : [address] ? ? BLD ? Mch 31.9 pg 26.0-32.0 Final [place] pg [facility] (Internal) : [address] ? ? BLD ? Mchc 31.9 g/dL 31.0-35.0 Final Nort [facility] g/dL [facility] ([facility] : [address] ? ? BLD High Rdw 16.2 % 11.5-14.5 Final [place] % [facility] (Internal) : [address] ? ? BLD Low Plt 51 10*3/uL 130-450 Final [place] 10*3/uL [facility] (Internal) : [address] ? ? BLD ? Anc 3.82 ? Final [place] 10*3/uL [facility] (Internal) : [address] 05/29/2020 Ammonia, QN, S ? Miky 29 umol/L 9-30 Brittani l [place] Plasma umol/L [facility] L ab (Internal) : [address] 05/29/2020 BMP, Serum or S High g/r 358 mg/dL 74-106 Fin al [place] Plasma mg/dL [facility] (Internal[facility] : [address] ? ? S High Bun 40 mg/dL 9-20 Final [place] mg/dL [facility] (Internal) : [address] ? ? S High Crea 2.00 mg/dL 0.66-1.25 Final Nor th mg/dL [facility] (Internal) : [address] ? ? S ? Ca 8.6 mg/dL 8.4-10.2 Final [place] mg/dL [facility] (Internal) : [address] ? ? S ? Na 140 mmol/L 137-145 Final [place] mmol/L [facility] (Internal) : [address] ? ? S ? K 4.0 mmol/L 3.5-5.1 Final [place] mmol/L [facility] (Internal) : [address] ? ? S ? Cl 106 mmol/L 98-107 Final [place] mmol/L [facility] L ab (Internal) : [address] ? ? S ? Tco2 27.0 22.0-30.0 Final [place] mmol/L mmol/L [facility] L ab (Internal) : [address] 05/28/2020 CRP, High S High Rcrp 0.51 mg/dL 0.10-0.30 Leroy Espinoza Sensitivity, mg/dL Coun try Serum or Hospital Lab Plasma (Internal) : [address] 05/28/2020 Procalcitonin ? Pct 0.2 NG/mL 0.0-0.5 Fi nal [place] , Serum NG/mL [facility] (Internal) : [address] 05/28/2020 SARS CoV 2 SWAB ? Covid-1 negative negative Leroy wiggins [place] RNA 9 [facility] (COVID-19), Result Hospi z[facility] Lab QL, case picker-PCR, (Int ernal): Respiratory [address] Specimen Domenica Jasso ort ? ? SWAB ? Perform genexpert ? Final [facility] (Internal) : [address] 07/28/2019 CBC W/ Auto BLD - Wbc 7.4 5.0-10.0 Final [place] Diff 10*3/uL 10*3/uL [facility] L ab (Internal) : [address] ? ? BLD Low Rbc 3.92 4.60-6.00 Final [place] 10*6/uL 10*6/uL [facility] L ab (Internal) : [address] ? ? BLD Low Hgb 12.4 g/dL 14.0-18.0 Final Nort h g/dL [facility] (Internal) : [address] ? ? BLD Low Hct 36.5 % 41.0-51.0 Final [place] % [facility] (Internal) : [address] Dr ? ? BLD - Mcv 93.1 fL 80.0-96.0 Final [facility] L ab (Internal) : [address] ? ? BLD - Mch 31.6 pg 26.0-32.0 Final [facility] ([facility] : [address] t ? ? BLD - Mchc 34.0 g/dL 31.0-35.0 Final Nort h g/dL [facility] L [facility] (Internal) : [address] ? ? BLD High Rdw 14.6 % 11.5-14.5 Final [place] % [facility] L [facility] (Internal) : [address] t ? ? BLD Low Plt 70 10*3/uL 130-450 Final [facility] 10*3/uL [facility] L [facility] (Internal) : [address] 07/28/2019 CMP, Serum or S - g/r 97 mg/dL 74-106 Brittani l [facility] Plasma mg/dL [facility] L [facility] (Internal) : [address] ? ? S High Bun 33 mg/dL 9-20 Final [facility] mg/dL [facility] L ab (Internal) : [address] ? ? S High Crea 1.30 mg/dL 0.66-1.25 Final Nor th mg/dL [facility] L ab (Internal) : [address] t ? ? S - Ca 8.5 mg/dL 8.4-10.2 Final [place] mg/dL [facility] L ab (Internal) : [address] t ? ? S - Na 137 mmol/L 137-145 Final [place] mmol/L [facility] L ab (Internal) : [address] t ? ? S Low K 3.3 mmol/L 3.5-5.1 Final [place] mmol/L [facility] L ab (Internal) : [address] t ? ? S - Cl 98 mmol/L 98-107 Final [place] mmol/L [facility] L ab (Internal) : [address] t ? ? S High Tco2 33.0 22.0-30.0 Final [place] mmol/L mmol/L [facility] L ab (Internal) : [address] t ? ? S - Tp 6.5 g/dL 6.3-8.2 Final [place] g/dL [facility] L ab (Internal) : [address] t ? ? S Low Alb 3.1 g/dL 3.5-5.0 Final [place] g/dL [facility] L ab (Internal) : [address] t ? ? S High Tbil 2.0 mg/dL 0.2-1.3 Final [place] mg/dL [facility] L ab (Internal) : [address] ? ? S High Alp 141 U/L 38-126 Final [place] U/L [facility] L ab (Internal) : [address] t ? ? S - Alt 28 U/L 21-72 U/L Final [place] (Sgpt) [facility] L ab (Internal) : [address] t ? ? S - Ast 48 U/L 17-59 U/L Final [place] (ot) [facility] L ab (Internal) : [address] 07/28/2019 Culture, BLD ? Final microbiolo ? Final [place] Blood 1 gy results Count [facility] L ab (Internal) : [address] 07/28/2019 Culture, BLD ? Final microbiolo ? Final [place] Blood 2 gy results Count [facility] L ab (Internal) : [address] 07/28/2019 Differential, BLD - Polys 72 % 40-75 % Final [facility] Blood [facility] L ab (Internal) : [address] ? ? BLD - Bands 0 % 0-5 % Final [facility] ([facility] : [address] ? ? BLD Low Lymphs 10 % 20-50 % Final [facility] L ab (Internal) : [address] t ? ? BLD High Blanco 12 % 2-10 % Final [facility] L ab (Internal) : [address] ? ? BLD - Eos 5 % 0-6 % Final [facility] ([facility]) : [address] t ? ? BLD - Baso 1 % 0-1 % Final [facility] ([facility]) : [address] ? ? BLD - Atyp 0 % ? Final [facility] L ab (Internal) : [address] t ? ? BLD ABNORMAL Plts, low adequate Final [place] Est. [facility] L ab (Internal) : [address] t ? ? BLD - RBC normal normal Final [facility] L ab (Internal) : [address] t 07/28/2019 Neutrophil BLD - Anc-man 5.32 ? Final [place] Count, ual 10*3/uL [facility] Lab (Anc), Blood (Int ernal): [address] 07/28/2019 Ammonia, QN, S - Miky 14 umol/L 9-30 Brittani l [place] Plasma umol/L [facility] L ab (Internal) : [address] 07/05/2019 BMP, Serum or S High g/r 369 mg/dL 74-106 Fin al [facility] Plasma mg/dL [facility] L ab (Internal) : [address] t ? ? S High Bun 46 mg/dL 9-20 Final [place] mg/dL [facility] L ab (Internal) : [address] t ? ? S High Crea 1.60 mg/dL 0.66-1.25 Final Nor th mg/dL [facility] L ab (Internal) : [address] t ? ? S - Ca 8.7 mg/dL 8.4-10.2 Final [place] mg/dL [facility] L ab (Internal) : [address] t ? ? S Low Na 132 mmol/L 137-145 Final [place] mmol/L [facility] L ab (Internal) : [address] t ? ? S - K 3.8 mmol/L 3.5-5.1 Final [place] mmol/L [facility] L ab (Internal) : [address] t ? ? S Low Cl 86 mmol/L 98-107 Final [place] mmol/L [facility] L ab (Internal) : [address] t ? ? S High Tco2 38.0 22.0-30.0 Final [place] mmol/L mmol/L [facility] L ab (Internal) : [address] 04/18/2019 Cbc BLD - Wbc 5.7 5.0-10.0 Final Nort h 10*3/uL 10*3/uL [facility] L ab (Internal) : [address] ? ? BLD Low Rbc 4.07 4.60-6.00 Final [place] 10*6/uL 10*6/uL [facility] L ab (Internal) : [address] ? ? BLD Low Hgb 13.1 g/dL 14.0-18.0 Final Nort h g/dL [facility] L ab (Internal) : [address] ? ? BLD Low Hct 37.1 % 41.0-51.0 Final [facility] L ab (Internal) : [address] ? ? BLD - Mcv 91.2 fL 80.0-96.0 Final [facility] L ab (Internal) : [address] ? ? BLD High Mch 32.2 pg 26.0-32.0 Final [facility] L ab (Internal) : [address] ? ? BLD High Mchc 35.3 g/dL 31.0-35.0 Final Nort h g/dL [facility] L ab (Internal) : [address] t ? ? BLD High Rdw 14.8 % 11.5-14.5 Final [facility] L ab (Internal) : [address] t ? ? BLD CRITICAL Plt 42 10*3/uL 130-450 Final Nor th LOW 10*3/uL [facility] L ab (Internal) : [address] ? ? BLD - Anc 3.69 ? Final [place] 10*3/uL [facility] L ab (Internal) : [address] t 04/18/2019 CMP, Serum or S High g/r 429 mg/dL 74-106 Fin al [place] Plasma mg/dL [facility] L ab (Internal) : [address] ? ? S High Bun 31 mg/dL 9-20 Final [place] mg/dL [facility] L ab (Internal) : [address] ? ? S High Crea 1.50 mg/dL 0.66-1.25 Final [place] mg/dL [facility] L ab (Internal) : [address] ? ? S Low Ca 8.2 mg/dL 8.4-10.2 Final [facility] mg/dL [facility] (Internal) : [address] ? ? S Low Na 134 mmol/L 137-145 Final [place] mmol/L [facility] L ab (Internal) : [address] t ? ? S - K 3.7 mmol/L 3.5-5.1 Final [place] mmol/L [facility] L ab (Internal) : [address] t ? ? S Low Cl 91 mmol/L 98-107 Final [place] mmol/L [facility] L ab (Internal) : [address] t ? ? S High Tco2 35.0 22.0-30.0 Final [place] mmol/L mmol/L [facility] L ab (Internal) : [address] t ? ? S Low Tp 6.1 g/dL 6.3-8.2 Final [place] g/dL [facility] L ab (Internal) : [address] t ? ? S Low Alb 2.9 g/dL 3.5-5.0 Final [place] g/dL [facility] L ab (Internal) : [address] t ? ? S High Tbil 2.3 mg/dL 0.2-1.3 Final [place] mg/dL [facility] L ab (Internal) : [address] t ? ? S - Alp 93 U/L 38-126 Final [place] U/L [facility] L ab (Internal) : [address] t ? ? S - Alt 41 U/L 21-72 U/L Final [place] (Sgpt) [facility] L ab (Internal) : [address] t ? ? S - Ast 44 U/L 17-59 U/L Final [place] (Sgot) [facility] L ab (Internal) : [address] 04/18/2019 HbA1C BLD High Ha1C 8.7 % 4.0-6.0 % Final Nor th (Hemoglobin Count ry a1C), Blood Hospi [facility] Lab (Internal) : [address] 04/17/2019 Rapid Flu NASAL - Final microbiolo ? Final [place] (A+B) gy results [facility] L ab (Internal) : [address] 04/17/2019 CBC W/ Auto BLD - Wbc 9.4 5.0-10.0 Final [place] Diff 10*3/uL 10*3/uL [facility] L ab (Internal) : [address] omar ? ? BLD Low Rbc 4.35 4.60-6.00 Final [place] 10*6/uL 10*6/uL [facility] (Internal) : [address] ? ? BLD Low Hgb 13.9 g/dL 14.0-18.0 Final Nort h g/dL [facility] L ab (Internal) : [address] ? ? BLD Low Hct 38.6 % 41.0-51.0 Final [facility] L ab (Internal) : [address] ? ? BLD - Mcv 88.7 fL 80.0-96.0 Final [facility] L ab (Internal) : [address] ? ? BLD - Mch 32.0 pg 26.0-32.0 Final [facility] L ab (Internal) : [address] t ? ? BLD High Mchc 36.0 g/dL 31.0-35.0 Final Nort h g/dL [facility] L ab (Internal) : [address] ? ? BLD High Rdw 14.6 % 11.5-14.5 Final [facility] L ab (Internal) : [address] ? ? BLD Low Plt 58 10*3/uL 130-450 Final [place] 10*3/uL [facility] L ab (Internal) : [address] ? ? BLD - Anc 6.83 ? Final [place] 10*3/uL [facility] L ab (Internal) : [address] ? ? BLD - Neutro 72.4 % 40.0-75.0 Final [facility] L ab (Internal) : [address] ? ? BLD Low Lymph 11.6 % 20.0-50.0 Final [facility] L ab (Internal) : [address] ? ? BLD High Blanco 11.5 % 2.0-10.0 Final [place] % [facility] L ab (Internal) : [address] t ? ? BLD - Eos 2.7 % 1.0-6.0 % Final [facility] L ab (Internal) : [address] t ? ? BLD High Baso 1.2 % 0.0-1.0 % Final [facility] L ab (Internal) : [address] t ? ? BLD - Ig 0.6 % 0.0-0.9 % Final [facility] L ab (Internal) : [address] t 04/17/2019 Ammonia, QN, S High Miky 77 umol/L 9-30 Brittani l [facility] Plasma umol/L [facility] L ab (Internal) : [address] t 04/17/2019 CMP, Serum or S High g/r 289 mg/dL 74-106 Fin al [place] Plasma mg/dL [facility] L ab (Internal) : [address] t ? ? S High Bun 32 mg/dL 9-20 Final [place] mg/dL [facility] L ab (Internal) : [address] t ? ? S High Crea 1.60 mg/dL 0.66-1.25 Final [place] th mg/dL [facility] L ab (Internal) : [address] t ? ? S - Ca 8.6 mg/dL 8.4-10.2 Final [place] mg/dL [facility] L ab (Internal) : [address] t ? ? S Low Na 134 mmol/L 137-145 Final [place] mmol/L [facility] L ab (Internal) : [address] t ? ? S Low K 2.9 mmol/L 3.5-5.1 Final [place] mmol/L [facility] L ab (Internal) : [address] t ? ? S Low Cl 89 mmol/L 98-107 Final [place] mmol/L [facility] L ab (Internal) : [address] t ? ? S High Tco2 37.0 22.0-30.0 Final [place] mmol/L mmol/L [facility] L ab (Internal) : [address] t ? ? S Low Tp 6.2 g/dL 6.3-8.2 Final [place] g/dL [facility] L ab (Internal) : [address] ? ? S Low Alb 2.9 g/dL 3.5-5.0 Final [place] g/dL [facility] L ab (Internal) : [address] ? ? S High Tbil 3.6 mg/dL 0.2-1.3 Final [place] mg/dL [facility] L ab (Internal) : [address] t ? ? S - Alp 82 U/L 38-126 Final [place] U/L [facility] L ab (Internal) : [address] ? ? S - Alt 48 U/L 21-72 U/L Final [place] (Sgpt) [facility] L ab (Internal) : [address] t ? ? S - Ast 43 U/L 17-59 U/L Final [place] (Sgot) [facility] L ab (Internal) : [address] 04/17/2019 Urinalysis, UR - UA-colo yellow pale Final [place] Dipstick, r yellow [facility] Lab (Internal) : [address] t ? ? UR - UA-appe clear clear Final [facility] L ab (Internal) : [address] ? ? UR - UA-spec 1.010 1.003-1.0 Final [place] Grav 35 [facility] L ab (Internal) : [address] ? ? UR - UA-pH 7.0 [pH] 4.6-8.0 Final [place] [pH] [facility] L ab (Internal) : [address] ? ? UR - UA-leuk negative negative Final Nort h Est [facility] L ab (Internal) : [address] t ? ? UR - UA-nitr negative negative Final Nort h ite [facility] L ab (Internal) : [address] t ? ? UR - UA-prot negative negative Final Nort h [facility] L ab (Internal) : [address] ? ? UR - UA-gluc trace negative Final [facility] L ab (Internal) : [address] t ? ? UR - UA-keto negative negative Final Nort h ne [facility] L ab (Internal) : [address] ? ? UR - UA-urob normal normal Final [facility] L ab (Internal) : [address] t ? ? UR - UA-bili negative negative Final Nort h [facility] L ab (Internal) : [address] ? ? UR - UA-bloo negative negative Final Nort h d [facility] L ab (Internal) : [address] 02/10/2019 CBC W/ Auto BLD - Wbc 6.2 5.0-10.0 Final [place] Diff 10*3/uL 10*3/uL [facility] L ab (Internal) : [address] ? ? BLD Low Rbc 4.04 4.60-6.00 Final [place] 10*6/uL 10*6/uL [facility] L ab (Internal) : [address] ? ? BLD Low Hgb 13.1 g/dL 14.0-18.[address] [facility] L ab (Internal) : [address] ? ? BLD Low Hct 37.3 % 41.0-51.0 Final [facility] L ab (Internal) : [address] ? ? BLD - Mcv 92.3 fL 80.0-96.0 Final [facility] L ab (Internal) : [address] ? ? BLD High Mch 32.4 pg 26.0-32.0 Final [facility] L ab (Internal) : [address] ? ? BLD High Mchc 35.1 g/dL 31.0-35.[address] [facility] L ab (Internal) : [address] ? ? BLD - Rdw 13.8 % 11.5-14.5 Final [facility] L ab (Internal) : [address] ? ? BLD Low Plt 54 10*3/uL 130-450 Final [place] 10*3/uL [facility] L ab (Internal) : [address] ? ? BLD - Anc 4.25 ? Final [place] 10*3/uL [facility] L [facility] (Internal) : [address] ? ? BLD - Neutro 69.2 % 40.0-75.0 Final [facility] L ab (Internal) : [address] ? ? BLD Low Lymph 13.2 % 20.0-50.0 Final [facility] L ab (Internal) : [address] t ? ? BLD High Blanco 11.5 % 2.0-10.0 Final [facility] L ab (Internal) : [address] t ? ? BLD - Eos 4.7 % 1.0-6.0 % Final [facility] L ab (Internal) : [address] ? ? BLD High Baso 1.1 % 0.0-1.0 % Final [facility] L ab (Internal) : [address] ? ? BLD - Ig 0.3 % 0.0-0.9 % Final [facility] L ab (Internal) : [address] 02/10/2019 BMP, Serum or S High g/r 336 mg/dL 74-106 Fin al [place] Plasma mg/dL [facility] (Internal) : [address] t ? ? S High Bun 31 mg/dL 9-20 Final [place] mg/dL [facility] L ab (Internal) : [address] t ? ? S High Crea 1.50 mg/dL 0.66-1.25 Final Nor th mg/dL [facility] L ab (Internal) : [address] t ? ? S - Ca 8.8 mg/dL 8.4-10.2 Final [place] mg/dL [facility] L ab (Internal) : [address] t ? ? S Low Na 133 mmol/L 137-145 Final [place] mmol/L [facility] L ab (Internal) : [address] t ? ? S Low K 3.1 mmol/L 3.5-5.1 Final [place] mmol/L [facility] L ab (Internal) : [address] t ? ? S Low Cl 90 mmol/L 98-107 Final [place] mmol/L [facility] L ab (Internal) : [address] ? ? S High Tco2 36.0 22.0-30.0 Final [place] mmol/L mmol/L [facility] L ab (Internal) : [address] 02/10/2019 Prothrombin BLD High Pt 13.1 S 9.1-11.7 Final [place] Time S [facility] L ab (Internal) : [address] t ? ? BLD - Inr 1.3 ? Final [facility] L ab (Internal) : [address] 12/08/2018 Lactic Acid, S - La 1.5 mmol/L 0.7-2.1 Fi nal [place] Blood mmol/L [facility] L ab (Internal) : [address] 12/08/2018 CBC W/ Auto BLD - Wbc 7.1 5.0-10.0 Final [place] Diff 10*3/uL 10*3/uL [facility] L ab (Internal) : [address] ? ? BLD Low Rbc 4.40 4.60-6.00 Final [place] 10*6/uL 10*6/uL [facility] L ab (Internal) : [address] t ? ? BLD - Hgb 14.2 g/dL 14.0-18.[address] [facility] L ab (Internal) : [address] omar ? ? BLD Low Hct 40.1 % 41.0-51.0 Final [facility] L ab (Internal) : [address] omar ? ? BLD - Mcv 91.1 fL 80.0-96.0 Final [facility] L ab (Internal) : [address] omar ? ? BLD High Mch 32.3 pg 26.0-32.0 Final [place] pg [facility] L ab (Internal) : [address] ? ? BLD High Mchc 35.4 g/dL 31.0-35.0 Final Nort h g/dL [facility] L ab (Internal) : [address] ? ? BLD - Rdw 14.1 % 11.5-14.5 Final [facility] L ab (Internal) : [address] t ? ? BLD Low Plt 54 10*3/uL 130-450 Final [place] 10*3/uL [facility] L ab (Internal) : [address] ? ? BLD - Anc 4.92 ? Final [place] 10*3/uL [facility] L ab (Internal) : [address] ? ? BLD - Neutro 69.1 % 40.0-75.0 Final [facility] L ab (Internal) : [address] ? ? BLD Low Lymph 16.0 % 20.0-50.0 Final [facility] L ab (Internal) : [address] ? ? BLD - Blanco 9.7 % 2.0-10.0 Final [facility] L ab (Internal) : [address] ? ? BLD - Eos 3.7 % 1.0-6.0 % Final [facility] L ab (Internal) : [address] ? ? BLD High Baso 1.1 % 0.0-1.0 % Final [facility] L ab (Internal) : [address] ? ? BLD - Ig 0.4 % 0.0-0.9 % Final [facility] L ab (Internal) : [address] 12/08/2018 Ketones, S - Ketone 0.2 mmol/L 0.0-0.5 Final [facility], ([facility] mmol/L [facility] L ab (Internal) : [address] 12/08/2018 CMP, Serum or S High g/r 272 mg/dL 74-106 Fin al [place] Plasma mg/dL [facility] L ab (Internal) : [address] ? ? S High Bun 33 mg/dL 9-20 Final [place] mg/dL [facility] L ab (Internal) : [address] ? ? S - Crea 1.20 mg/dL 0.66-1.25 Final Nor th mg/dL [facility] L ab (Internal) : [address] ? ? S - Ca 9.1 mg/dL 8.4-10.2 Final [facility] mg/dL [facility] ([facility]) : [address] ? ? S Low Na 134 mmol/L 137-145 Final [place] mmol/L [facility] (Internal) : [address] ? ? S Low K 2.8 mmol/L 3.5-5.1 Final [place] mmol/L [facility] L [facility] (Internal) : [address] ? ? S Low Cl 92 mmol/L 98-107 Final [place] mmol/L [facility] L [facility] (Internal) : [address] t ? ? S High Tco2 39.0 22.0-30.0 Final [place] mmol/L mmol/L [facility] L ab (Internal) : [address] t ? ? S - Tp 6.4 g/dL 6.3-8.2 Final [facility] g/dL [facility] L [facility] (Internal) : [address] t ? ? S Low Alb 3.1 g/dL 3.5-5.0 Final [facility] g/dL [facility] (Internal) : [address] ? ? S High Tbil 2.2 mg/dL 0.2-1.3 Final [place] mg/dL [facility] L [facility] (Internal) : [address] ? ? S - Alp 89 U/L 38-126 Final [place] U/L [facility] L ab (Internal) : [address] ? ? S - Alt 31 U/L 21-72 U/L Final [place] (Sgpt) [facility] L ab (Internal) : [address] ? ? S - Ast 41 U/L 17-59 U/L Final [place] (Sgot) [facility] L ab (Internal) : [address] t 12/08/2018 Ammonia, QN, S High Miky 59 umol/L 9-30 Brittani l [place] Plasma umol/L [facility] L [facility] (Internal) : [address] t 12/08/2018 Prothrombin BLD High Pt 12.3 S 9.1-11.7 Final [facility] Time S [facility] L [facility] (Internal) : [address] ? ? BLD - Inr 1.3 ? Final [facility] L ab (Internal) : [address] 06/26/2018 Ammonia, QN, S High Miky 35 umol/L 9-30 Brittani l [place] Plasma umol/L [facility] L ab (Internal) : [address] 06/26/2018 CBC W/ Auto BLD Low Wbc 3.1 5.0-10.0 Final [place] Diff 10*3/uL 10*3/uL [facility] L ab (Internal) : [address] omar ? ? BLD Low Rbc 3.69 4.60-6.00 Final [place] 10*6/uL 10*6/uL [facility] L ab (Internal) : [address] omar ? ? BLD Low Hgb 11.1 g/dL 14.0-18.0 Final Nort h g/dL [facility] L ab (Internal) : [address] omar ? ? BLD Low Hct 35.5 % 41.0-51.0 Final [facility] L ab (Internal) : [address] ? ? BLD High Mcv 96.2 fL 80.0-96.0 Final [facility] L ab (Internal) : [address] omar ? ? BLD - Mch 30.1 pg 26.0-32.0 Final [facility] L ab (Internal) : [address] omar ? ? BLD - Mchc 31.3 g/dL 31.0-35.0 Final Nort h g/dL [facility] L ab (Internal) : [address] omar ? ? BLD High Rdw 14.6 % 11.5-14.5 Final [facility] L ab (Internal) : [address] oamr ? ? BLD Low Plt 58 10*3/uL 130-450 Final [place] 10*3/uL [facility] L ab (Internal) : [address] omar ? ? BLD - Anc 1.81 ? Final [place] 10*3/uL [facility] L ab (Internal) : [address] ? ? BLD - Neutro 57.9 % 40.0-75.0 Final [facility] % [facility] L [facility] (Internal) : [address] ? ? BLD - Lymph 21.7 % 20.0-50.0 Final [facility] (Internal) : [address] ? ? BLD - Blanco 9.6 % 2.0-10.0 Final [place] % [facility] L ab (Internal) : [address] ? ? BLD High Eos 8.9 % 1.0-6.0 % Final [facility] L ab (Internal) : [address] ? ? BLD High Baso 1.6 % 0.0-1.0 % Final [facility] L ab (Internal) : [address] t ? ? BLD - Ig 0.3 % 0.0-0.9 % Final [facility] Hospital L ab (Internal) : [address] t 06/26/2018 CMP, Serum or S - g/r 98 mg/dL 74-106 Brittani l [place] Plasma mg/dL [facility] (Internal) : [address] t ? ? S High Bun 27 mg/dL 9-20 Final [facility] mg/dL [facility] (Internal) : [address] t ? ? S High Crea 1.50 mg/dL 0.66-1.25 Final [facility] mg/dL [facility] (Internal) : [address] t ? ? S - Ca 8.4 mg/dL 8.4-10.2 Final [facility] mg/dL [facility] (Internal) : [address] t ? ? S - Na 138 mmol/L 137-145 Final [place] mmol/L [facility] L ab (Internal) : [address] t ? ? S - K 4.1 mmol/L 3.5-5.1 Final [facility] mmol/L [facility] (Internal) : [address] t ? ? S Low Cl 97 mmol/L 98-107 Final [place] mmol/L [facility] L ab (Internal) : [address] t ? ? S High Tco2 32.0 22.0-30.0 Final [place] mmol/L mmol/L [facility] L ab (Internal) : [address] ? ? S Low Tp 6.1 g/dL 6.3-8.2 Final [place] g/dL [facility] L ab (Internal) : [address] ? ? S Low Alb 3.2 g/dL 3.5-5.0 Final [place] g/dL [facility] ab (Internal) : [address] ? ? S - Tbil 1.1 mg/dL 0.2-1.3 Final [place] mg/dL [facility] L ab (Internal) : [address] ? ? S - Alp 75 U/L 38-126 Final [place] U/L [facility] L ab (Internal) : [address] ? ? S - Alt 34 U/L 21-72 U/L Final [place] (Sgpt) [facility] (Internal) : [address] ? ? S - Ast 51 U/L 17-59 U/L Final [place] (Sgot) [facility] L ab (Internal) : [address] 06/26/2018 HbA1C BLD - Ha1C 5.4 % 4.0-6.0 % Final [facility] th (Hemoglobin Count ry a1C), Blood Hospi zhou Lab (Internal) : [address] 06/26/2018 BNP (B-type S High Nt-prob 1160 pg/mL 0-125 Fi nal [place] Natriuretic nnps pg/mL Count ry Peptide), Hospita l Lab Prohormone (Inter nal): N-terminal, [address], [place] Immunoassay, Blood 06/04/2018 CBC W/ Auto BLD Low Wbc 4.3 5.0-10.0 Final [place] Diff 10*3/uL 10*3/uL [facility] (Internal) : [address] ? ? BLD Low Rbc 2.76 4.60-6.00 Final [place] 10*6/uL 10*6/uL [facility] (Internal) : [address] ? ? BLD Low Hgb 8.3 g/dL 14.0-18.0 Final [place] g/dL [facility] (Internal) : [address] ? ? BLD Low Hct 26.3 % 41.0-51.0 Final [facility] L ab (Internal) : [address] ? ? BLD - Mcv 95.3 fL 80.0-96.0 Final [facility] L ab (Internal) : [address] t ? ? BLD - Mch 30.1 pg 26.0-32.0 Final [facility] L ab (Internal) : [address] t ? ? BLD - Mchc 31.6 g/dL 31.0-35.0 Final Nort h g/dL [facility] (Internal) : [address] t ? ? BLD High Rdw 15.1 % 11.5-14.5 Final [facility] L ab (Internal) : [address] t ? ? BLD Low Plt 70 10*3/uL 130-450 Final [place] 10*3/uL [facility] (Internal) : [address] t ? ? BLD - Anc 2.75 ? Final [place] 10*3/uL [facility] ab (Internal) : [address] ? ? BLD - Neutro 63.7 % 40.0-75.0 Final [facility] L ab (Internal) : [address] ? ? BLD Low Lymph 15.7 % 20.0-50.0 Final [facility] L ab (Internal) : [address] t ? ? BLD High Blanco 12.0 % 2.0-10.0 Final [facility] L ab (Internal) : [address] ? ? BLD - Eos 6.0 % 1.0-6.0 % Final [facility] L ab (Internal) : [address] ? ? BLD High Baso 2.1 % 0.0-1.0 % Final [facility] L ab (Internal) : [address] t ? ? BLD - Ig 0.5 % 0.0-0.9 % Final [facility] L ab (Internal) : [address] t 06/04/2018 BMP, Serum or S High g/r 124 mg/dL 74-106 Fin al [place] Plasma mg/dL [facility] ab (Internal) : [address] t ? ? S High Bun 22 mg/dL 9-20 Final [place] mg/dL [facility] L ab (Internal) : [address] t ? ? S High Crea 1.80 mg/dL 0.66-1.25 Final Nor th mg/dL [facility] ab (Internal) : [address] t ? ? S - Ca 8.4 mg/dL 8.4-10.2 Final [place] mg/dL [facility] L ab (Internal) : [address] t ? ? S - Na 139 mmol/L 137-145 Final [place] mmol/L [facility] L ab (Internal) : [address] ? ? S - K 3.8 mmol/L 3.5-5.1 Final [place] mmol/L [facility] L ab (Internal) : [address] t ? ? S - Cl 101 mmol/L 98-107 Final [place] mmol/L [facility] L ab (Internal) : [address] ? ? S - Tco2 29.0 22.0-30.0 Final [place] mmol/L mmol/L [facility] L ab (Internal) : [address] 06/04/2018 RBC BLD - Aniso small ? Final [place] Morphology, Count Blood [facility] L ab (Internal) : [address] ? ? BLD - Polychr small ? Final [facility] L ab (Internal) : [address] t ? ? BLD - Target occasional ? Final [facility] L ab (Internal) : [address] 06/04/2018 Fecal Occult STL - Occ Bld negative negative F inal [place] Blood, Stool [facility] L ab (Internal) : [address] 06/03/2018 BMP, Serum or S - g/r 104 mg/dL 74-106 Fin al [place] Plasma mg/dL [facility] L ab (Internal) : [address] ? ? S High Bun 24 mg/dL 9-20 Final [place] mg/dL [facility] (Internal) : [address] ? ? S High Crea 1.70 mg/dL 0.66-1.[address] [facility] th mg/dL [facility] ab (Internal) : [address] t ? ? S Low Ca 8.2 mg/dL 8.4-10.2 Final [place] mg/dL [facility] ab (Internal) : [address] ? ? S - Na 137 mmol/L 137-145 Final [place] mmol/L [facility] (Internal) : [address] ? ? S Low K 3.3 mmol/L 3.5-5.1 Final [place] mmol/L [facility] (Internal) : [address] ? ? S - Cl 100 mmol/L 98-107 Final [place] mmol/L [facility] (Internal) : [address] t ? ? S - Tco2 30.0 22.0-30.0 Final [place] mmol/L mmol/L [facility] (Internal) : [address] t 06/03/2018 CBC W/ Auto BLD Low Wbc 4.2 5.0-10.0 Final [place] Diff 10*3/uL 10*3/uL [facility] (Internal) : [address] ? ? BLD Low Rbc 2.51 4.60-6.00 Final [place] 10*6/uL 10*6/uL [facility] ab (Internal) : [address] t ? ? BLD Low Hgb 7.6 g/dL 14.0-18.0 Final [place] g/dL [facility] (Internal) : [address] ? ? BLD Low Hct 23.8 % 41.0-51.0 Final [place] % [facility] (Internal) : [address] ? ? BLD - Mcv 94.8 fL 80.0-96.0 Final [place] fL [facility] (Internal) : [address] ? ? BLD - Mch 30.3 pg 26.0-32.0 Final [place] pg [facility] (Internal) : [address], [place] ? ? BLD - Mchc 31.9 g/dL 31.0-35.0 Final Nort h g/dL [facility] ab (Internal) : [address] t ? ? BLD High Rdw 15.2 % 11.5-14.5 Final [facility] L ab (Internal) : [address] t ? ? BLD Low Plt 67 10*3/uL 130-450 Final [place] 10*3/uL [facility] ab (Internal) : [address] t 06/03/2018 Differential, BLD - Polys 60 % 40-75 % Final [facility] Blood [facility] L ab (Internal) : [address] t ? ? BLD - Bands 0 % 0-5 % Final [facility] L ab (Internal) : [address] t ? ? BLD - Lymphs 25 % 20-50 % Final [facility] L ab (Internal) : [address] ? ? BLD - Blanco 10 % 2-10 % Final [facility] L ab (Internal) : [address] t ? ? BLD - Eos 4 % 0-6 % Final [facility] L ab (Internal) : [address] t ? ? BLD - Baso 1 % 0-1 % Final [facility] L ab (Internal) : [address] t ? ? BLD - Atyp 0 % ? Final [facility] L ab (Internal) : [address] ? ? BLD ABNORMAL Plts, low adequate Final [facility] L ab (Internal) : [address] ? ? BLD ABNORMAL RBC abnormal normal Final [facility] L ab (Internal) : [address] t ? ? BLD - Aniso small ? Final [facility] L ab (Internal) : [address] ? ? BLD - Poik occasional ? Final [place] [hpf] [facility] ab (Internal) : [address] ? ? BLD - Polychr occasional ? Final Nort h [facility] L ab (Internal) : [address] t 06/03/2018 Neutrophil BLD - Anc-man 2.49 ? Final [place] Count, ual 10*3/uL [facility] Lab (Anc), Blood (Int ernal): [address] 06/02/2018 CBC W/ Auto BLD - Wbc 6.6 5.0-10.0 Final [place] Diff 10*3/uL 10*3/uL [facility] L ab (Internal) : [address] ? ? BLD Low Rbc 2.84 4.60-6.00 Final [place] 10*6/uL 10*6/uL [facility] L ab (Internal) : [address] omar ? ? BLD Low Hgb 8.6 g/dL 14.0-18.0 Final [place] g/dL [facility] L ab (Internal) : [address] omar ? ? BLD Low Hct 26.8 % 41.0-51.0 Final [facility] L ab (Internal) : [address] ? ? BLD - Mcv 94.4 fL 80.0-96.0 Final [facility] L ab (Internal) : [address] ? ? BLD - Mch 30.3 pg 26.0-32.0 Final [facility] L ab (Internal) : [address] ? ? BLD - Mchc 32.1 g/dL 31.0-35.0 Final Nort h g/dL [facility] L ab (Internal) : [address] omar ? ? BLD High Rdw 15.7 % 11.5-14.5 Final [facility] L ab (Internal) : [address] omar ? ? BLD Low Plt 85 10*3/uL 130-450 Final [place] 10*3/uL [facility] L ab (Internal) : [address] ? ? BLD - Anc 4.82 ? Final [place] 10*3/uL [facility] L ab (Internal) : [address] ? ? BLD - Neutro 73.1 % 40.0-75.0 Final [facility] L ab (Internal) : [address] t ? ? BLD Low Lymph 10.0 % 20.0-50.0 Final [facility] ([facility] : [address] ? ? BLD High Blanco 10.6 % 2.0-10.0 Final [facility] (Internal) : [address] ? ? BLD - Eos 4.2 % 1.0-6.0 % Final [facility] L ab (Internal) : [address] ? ? BLD High Baso 1.5 % 0.0-1.0 % Final [facility] L ab (Internal) : [address] ? ? BLD - Ig 0.6 % 0.0-0.9 % Final [facility] L ab (Internal) : [address] 06/02/2018 BMP, Serum or S High g/r 137 mg/dL 74-106 Fin al [place] Plasma mg/dL [facility] (Internal) : [address] ? ? S High Bun 26 mg/dL 9-20 Final [place] mg/dL [facility] ab (Internal) : [address] ? ? S High Crea 1.60 mg/dL 0.66-1.25 Final Nor th mg/dL [facility] (Internal) : [address] ? ? S - Ca 8.4 mg/dL 8.4-10.2 Final [place] mg/dL [facility] (Internal) : [address] ? ? S - Na 137 mmol/L 137-145 Final [place] mmol/L [facility] ab (Internal) : [address] ? ? S - K 3.6 mmol/L 3.5-5.1 Final [place] mmol/L [facility] (Internal) : [address] ? ? S - Cl 101 mmol/L 98-107 Final [place] mmol/L [facility] ab (Internal) : [address] ? ? S - Tco2 29.0 22.0-30.0 Final [place] mmol/L mmol/L [facility] (Internal) : [address] 06/02/2018 RBC BLD - Aniso small ? Final [place] Morphology, Count ry Blood Hospital L ab (Internal) : [address] t ? ? BLD - Poik occasional ? Final [place] [hpf] [facility] ab (Internal) : [address] ? ? BLD - Polychr occasional ? Final Nort h om [facility] L ab (Internal) : [address] t 06/02/2018 Fecal Occult STL - Occ Bld negative negative F inal [place] Blood, Stool Coun try Hospital L ab (Internal) : [address] 06/02/2018 Enteric STL - Salmone see ? Final Nor th Bacteria, lla PCR comments Coun try Organism Hospital Lab Specific (Interna l): Culture, [address] ? ? STL - Shigell see ? Final North a PCR comments [facility] ab (Internal) : [address] ? ? STL - Campylo see ? Final [place] bacter comments [facility] PCR Hospital L ab (Internal) : [address] t ? ? STL - Shiga see ? Final [place] Toxin comments [facility] Hospital ab (Internal) : [address] 06/02/2018 C Diff Toxin STL - C. Diff negative negative F inal [place] Genes, Qual, ([facility]) Coun try PCR, Stool Hospit al Lab (Internal) : [address] t 06/01/2018 CBC W/ Auto BLD - Wbc 6.9 5.0-10.0 Final [place] Diff 10*3/uL 10*3/uL [facility] L ab (Internal) : [address] t ? ? BLD Low Rbc 2.85 4.60-6.00 Final [place] 10*6/uL 10*6/uL [facility] L ab (Internal) : [address] t ? ? BLD Low Hgb 8.6 g/dL 14.0-18.0 Final [place] g/dL [facility] L ab (Internal) : [address] t ? ? BLD Low Hct 27.0 % 41.0-51.0 Final [place] % [facility] L ab (Internal) : [address] t ? ? BLD - Mcv 94.7 fL 80.0-96.0 Final [facility] Hospital L ab (Internal) : [address] ? ? BLD - Mch 30.2 pg 26.0-32.0 Final [facility] L ab (Internal) : [address] ? ? BLD - Mchc 31.9 g/dL 31.0-35.0 Final Nort h g/dL [facility] L ab (Internal) : [address] ? ? BLD High Rdw 15.7 % 11.5-14.5 Final [facility] L ab (Internal) : [address] omar ? ? BLD Low Plt 99 10*3/uL 130-450 Final [place] 10*3/uL [facility] L ab (Internal) : [address] ? ? BLD - Anc 4.54 ? Final [place] 10*3/uL [facility] L ab (Internal) : [address] ? ? BLD - Neutro 65.9 % 40.0-75.0 Final [facility] L ab (Internal) : [address] ? ? BLD Low Lymph 16.7 % 20.0-50.0 Final [facility] L ab (Internal) : [address] ? ? BLD High Blanco 10.8 % 2.0-10.0 Final [facility] L ab (Internal) : [address] ? ? BLD - Eos 4.7 % 1.0-6.0 % Final [facility] L ab (Internal) : [address] omar ? ? BLD High Baso 1.5 % 0.0-1.0 % Final [facility] L ab (Internal) : [address] ? ? BLD - Ig 0.4 % 0.0-0.9 % Final [facility] L ab (Internal) : [address] 06/01/2018 Lactic Acid, S High La 3.3 mmol/L 0.7-2.1 Fi nal [place] Blood mmol/L [facility] L ab (Internal) : [address] 06/01/2018 Urinalysis, UR - UA-colo yellow pale Final [place] Dipstick, r yellow [facility] Reflex Micro Hosp ital Lab (Internal) : [address] ? ? UR - UA-appe clear clear Final [facility] Hospital L ab (Internal) : [address] ? ? UR - UA-spec 1.020 1.003-1.0 Final [place] Grav 35 [facility] L ab (Internal) : [address] ? ? UR - UA-pH 5.5 [pH] 4.6-8.0 Final [place] [pH] [facility] L ab (Internal) : [address] ? ? UR - UA-leuk negative negative Final Nort h Est [facility] L ab (Internal) : [address] ? ? UR - UA-nitr negative negative Final Nort h ite [facility] L ab (Internal) : [address] ? ? UR - UA-prot negative negative Final Nort h [facility] L ab (Internal) : [address] ? ? UR - UA-gluc negative negative Final Nort h [facility] L ab (Internal) : [address] ? ? UR - UA-keto negative negative Final Nort h ne [facility] L ab (Internal) : [address] ? ? UR - UA-urob normal normal Final [facility] L ab (Internal) : [address] ? ? UR - UA-bili negative negative Final Nort h [facility] L ab (Internal) : [address] ? ? UR - UA-bloo negative negative Final Nort h d [facility] L ab (Internal) : [address] 06/01/2018 Prothrombin BLD High Pt 12.1 S 9.1-11.7 Final [place] Time [facility] L ab (Internal) : [address] ? ? BLD - Inr 1.2 ? Final [facility] (Internal) : [address] 06/01/2018 Ammonia, QN, S High Miky 97 umol/L 9-30 Brittani l [facility] Plasma umol/L [facility] ab (Internal) : [address] t 06/01/2018 CMP, Serum or S High g/r 245 mg/dL 74-106 Fin al [place] Plasma mg/dL [facility] ab (Internal) : [address] ? ? S High Bun 28 mg/dL 9-20 Final [place] mg/dL [facility] L ab (Internal) : [address] ? ? S High Crea 1.60 mg/dL 0.66-1.25 Final [facility] mg/dL [facility] (Internal) : [address] ? ? S Low Ca 8.2 mg/dL 8.4-10.2 Final [facility] mg/dL [facility] (Internal) : [address] ? ? S - Na 137 mmol/L 137-145 Final [place] mmol/L [facility] L ab (Internal) : [address] ? ? S - K 4.3 mmol/L 3.5-5.1 Final [place] mmol/L [facility] L ab (Internal) : [address] ? ? S - Cl 103 mmol/L 98-107 Final [place] mmol/L [facility] L ab (Internal) : [address] ? ? S - Tco2 23.0 22.0-30.0 Final [place] mmol/L mmol/L [facility] L ab (Internal) : [address] ? ? S Low Tp 5.5 g/dL 6.3-8.2 Final [place] g/dL [facility] L ab (Internal) : [address] ? ? S Low Alb 2.8 g/dL 3.5-5.0 Final [place] g/dL [facility] L ab (Internal) : [address] ? ? S High Tbil 1.4 mg/dL 0.2-1.3 Final [place] mg/dL [facility] L ab (Internal) : [address] ? ? S - Alp 69 U/L 38-126 Final [place] U/L [facility] L ab (Internal) : [address] ? ? S - Alt 27 U/L 21-72 U/L Final [place] (Sgpt) [facility] L ab (Internal) : [address] ? ? S - Ast 33 U/L 17-59 U/L Final [place] (Sgot) [facility] L ab (Internal) : [address] [facility] 06/01/2018 Lipase, Serum S - Lip 194 U/L 23-300 Final [place] or Plasma U/L [facility] ab (Internal) : [address] [facility] [facility]01/2018 RBC BLD - Aniso small ? Final [place] Morphology, Count Blood Hospital L ab (Internal) : [address] ? ? BLD - Polychr small ? Final [facility] L ab (Internal) : [address] [facility] [place] 06/01/2018 Troponin I, S - Trop <0.06 0.00-0.06 Final [place] Serum or NG/mL NG/mL [facility] L ab (Internal) : [address] [facility] [place] 05/24/2018 RBC BLD - Aniso small ? Final [place] Morphology, Count Blood Hospital L ab (Internal) : [address] ? ? BLD - Poik occasional ? Final [place] [hpf] [facility] L ab (Internal) : [address] ? ? BLD - Polychr occasional ? Final Nort h [facility] L ab (Internal) : [address] 05/24/2018 Hepatic S High Tbil 2.6 mg/dL 0.2-1.3 Final N orth Function mg/dL [facility] Panel, Serum Hosp ital Lab (Internal) : [address] ? ? S High Dbil 0.7 mg/dL 0.0-0.3 Final [place] mg/dL [facility] L ab (Internal) : [address] ? ? S - Alp 75 U/L 38-126 Final [place] U/L [facility] L ab (Internal) : [address] ? ? S - Alt 37 U/L 21-72 U/L Final [place] (Sgpt) [facility] L ab (Internal) : [address] ? ? S - Ast 46 U/L 17-59 U/L Final [place] (Sgot) [facility] L ab (Internal) : [address] ? ? S - Ggt 66 U/L 15-73 U/L Final [facility] Hospital L ab (Internal) : [address] ? ? S Low Tp 5.7 g/dL 6.3-8.2 Final [place] g/dL [facility] L ab (Internal) : [address] ? ? S Low Alb 2.9 g/dL 3.5-5.0 Final [place] g/dL [facility] L ab (Internal) : [address] 05/24/2018 BMP, Serum or S High g/r 189 mg/dL 74-106 Fin al [place] Plasma mg/dL [facility] (Internal) : [address] ? ? S - Bun 16 mg/dL 9-20 Final [place] mg/dL [facility] L ab (Internal) : [address] ? ? S High Crea 1.50 mg/dL 0.66-1.25 Final Nor th mg/dL [facility] L ab (Internal) : [address] ? ? S Low Ca 8.2 mg/dL 8.4-10.2 Final [place] mg/dL [facility] L ab (Internal) : [address] ? ? S - Na 138 mmol/L 137-145 Final [place] mmol/L [facility] L ab (Internal) : [address] ? ? S Low K 3.4 mmol/L 3.5-5.1 Final [place] mmol/L [facility] L ab (Internal) : [address] ? ? S - Cl 100 mmol/L 98-107 Final [place] mmol/L [facility] L ab (Internal) : [address] ? ? S - Tco2 26.0 22.0-30.0 Final [place] mmol/L mmol/L [facility] L ab (Internal) : [address] 05/24/2018 CBC W/ Auto BLD - Wbc 7.8 5.0-10.0 Final [place] Diff 10*3/uL 10*3/uL [facility] (Internal) : [address] ? ? BLD Low Rbc 3.05 4.60-6.00 Final [place] 10*6/uL 10*6/uL [facility] L ab (Internal) : [address] ? ? BLD Low Hgb 9.7 g/dL 14.0-18.0 Final [place] g/dL [facility] L ab (Internal) : [address] ? ? BLD Low Hct 29.2 % 41.0-51.0 Final [facility] L ab (Internal) : [address] ? ? BLD - Mcv 95.7 fL 80.0-96.0 Final [facility] Hospital L ab (Internal) : [address] ? ? BLD - Mch 31.8 pg 26.0-32.0 Final [facility] Hospital L ab (Internal) : [address] ? ? BLD - Mchc 33.2 g/dL 31.0-35.0 Final Nort h g/dL [facility] L ab (Internal) : [address] ? ? BLD High Rdw 16.9 % 11.5-14.5 Final [facility] L ab (Internal) : [address] ? ? BLD Low Plt 105 130-450 Final [place] 10*3/uL 10*3/uL [facility] L ab (Internal) : [address] ? ? BLD - Anc 5.70 ? Final [place] 10*3/uL [facility] L ab (Internal) : [address] ? ? BLD - Neutro 73.3 % 40.0-75.0 Final [facility] L ab (Internal) : [address] ? ? BLD Low Lymph 11.2 % 20.0-50.0 Final [facility] Hospital L ab (Internal) : [address] ? ? BLD - Blanco 9.7 % 2.0-10.0 Final [facility] L ab (Internal) : [address] ? ? BLD - Eos 3.9 % 1.0-6.0 % Final [facility] Hospital L ab (Internal) : [address] ? ? BLD High Baso 1.4 % 0.0-1.0 % Final [facility] Hospital L ab (Internal) : [address] ? ? BLD - Ig 0.5 % 0.0-0.9 % Final [facility] L ab (Internal) : [address] 05/23/2018 Neutrophil BLD - Anc-man 4.43 ? Final [place] Count, ual 10*3/uL [facility] Hospital Lab (Anc), Blood (Int ernal): [address] 05/23/2018 Differential, BLD - Polys 74 % 40-75 % Final [facility] Blood [facility] Hospital L ab (Internal) : [address] ? ? BLD - Bands 0 % 0-5 % Final [facility] L ab (Internal) : [address] ? ? BLD Low Lymphs 17 % 20-50 % Final [facility] L ab (Internal) : [address] ? ? BLD - Blanco 7 % 2-10 % Final [facility] L ab (Internal) : [address] ? ? BLD - Eos 1 % 0-6 % Final [facility] L ab (Internal) : [address] ? ? BLD - Baso 1 % 0-1 % Final [facility] L ab (Internal) : [address] ? ? BLD - Atyp 0 % ? Final [facility] L ab (Internal) : [address] ? ? BLD ABNORMAL Plts, low adequate Final [facility] [facility] L ab (Internal) : [address] t ? ? BLD ABNORMAL RBC abnormal normal Final [facility] L ab (Internal) : [address] t ? ? BLD - Aniso small ? Final [facility] L ab (Internal) : [address] t ? ? BLD - Polychr occasional ? Final [facility] L ab (Internal) : [address] 05/23/2018 CBC W/ Auto BLD - Wbc 6.0 5.0-10.0 Final [place] Diff 10*3/uL 10*3/uL [facility] L ab (Internal) : [address] ? ? BLD Low Rbc 2.76 4.60-6.00 Final [place] 10*6/uL 10*6/uL [facility] L ab (Internal) : [address] ? ? BLD Low Hgb 8.9 g/dL 14.0-18.0 Final [place] g/dL [facility] L ab (Internal) : [address] t ? ? BLD Low Hct 26.8 % 41.0-51.0 Final [facility] L ab (Internal) : [address] t ? ? BLD High Mcv 97.1 fL 80.0-96.0 Final [facility] L ab (Internal) : [address] t ? ? BLD High Mch 32.2 pg 26.0-32.0 Final [facility] L ab (Internal) : [address] t ? ? BLD - Mchc 33.2 g/dL 31.0-35.[address] [facility] h g/dL [facility] L ab (Internal) : [address] t ? ? BLD High Rdw 16.9 % 11.5-14.5 Final [facility] L ab (Internal) : [address] ? ? BLD Low Plt 72 10*3/uL 130-450 Final [place] 10*3/uL [facility] L ab (Internal) : [address] 05/19/2018 CBC W/ Auto BLD - Wbc 7.1 5.0-10.0 Final [place] Diff 10*3/uL 10*3/uL [facility] L ab (Internal) : [address] t ? ? BLD Low Rbc 2.72 4.60-6.00 Final [place] 10*6/uL 10*6/uL [facility] L ab (Internal) : [address] t ? ? BLD Low Hgb 8.8 g/dL 14.0-18.0 Final [place] g/dL [facility] L ab (Internal) : [address] t ? ? BLD Low Hct 25.8 % 41.0-51.0 Final [facility] L ab (Internal) : [address], [place] ? ? BLD - Mcv 94.9 fL 80.0-96.0 Final [facility] L ab (Internal) : [address] t ? ? BLD High Mch 32.4 pg 26.0-32.0 Final [place] pg [facility] L ab (Internal) : [address] t ? ? BLD - Mchc 34.1 g/dL 31.0-35.0 Final Nort h g/dL [facility] L ab (Internal) : [address] t ? ? BLD High Rdw 16.4 % 11.5-14.5 Final [facility] L ab (Internal) : [address] t ? ? BLD Low Plt 80 10*3/uL 130-450 Final [place] 10*3/uL [facility] L ab (Internal) : [address] t ? ? BLD - Anc 4.35 ? Final [place] 10*3/uL [facility] L ab (Internal) : [address] t ? ? BLD - Neutro 60.9 % 40.0-75.0 Final [facility] L ab (Internal) : [address] t ? ? BLD - Lymph 20.3 % 20.0-50.0 Final [facility] L ab (Internal) : [address] t ? ? BLD High Blanco 10.8 % 2.0-10.0 Final [facility] L ab (Internal) : [address] t ? ? BLD - Eos 5.9 % 1.0-6.0 % Final [facility] L ab (Internal) : [address] t ? ? BLD - Baso 1.0 % 0.0-1.0 % Final [facility] L ab (Internal) : [address] t ? ? BLD High Ig 1.1 % 0.0-0.9 % Final [facility] L ab (Internal) : [address] t 05/19/2018 CMP, Serum or S High g/r 107 mg/dL 74-106 Fin al [place] Plasma mg/dL [facility] L ab (Internal) : [address] t ? ? S - Bun 15 mg/dL 9-20 Final [facility] mg/dL [facility] L [facility] ([facility]) : [address] t ? ? S - Crea 1.10 mg/dL 0.66-1.25 Final [facility] mg/dL [facility] L [facility] ([facility]) : [address] t ? ? S Low Ca 7.2 mg/dL 8.4-10.2 Final [facility] mg/dL [facility] L [facility] (Internal) : [address] t ? ? S - Na 138 mmol/L 137-145 Final [facility] mmol/L [facility] ([facility]) : [address] t ? ? S - K 3.6 mmol/L 3.5-5.1 Final [facility] mmol/L [facility] L [facility] (Internal) : [address] t ? ? S - Cl 107 mmol/L 98-107 Final [facility] mmol/L [facility] L [facility] (Internal) : [address] t ? ? S - Tco2 23.0 22.0-30.0 Final [place] mmol/L mmol/L [facility] L [facility] (Internal) : [address] t ? ? S Low Tp 5.5 g/dL 6.3-8.2 Final [facility] g/dL [facility] L [facility] (Internal) : [address] t ? ? S Low Alb 2.8 g/dL 3.5-5.0 Final [facility] g/dL [facility] (Internal) : [address] t ? ? S High Tbil 1.9 mg/dL 0.2-1.3 Final [facility] mg/dL [facility] L [facility] (Internal) : [address] t ? ? S - Alp 53 U/L 38-126 Final [facility] U/L [facility] (Internal) : [address] t ? ? S - Alt 40 U/L 21-72 U/L Final [facility] (Sgpt) [facility] L [facility] (Internal) : [address] t ? ? S - Ast 56 U/L 17-59 U/L Final [facility] (Sgot) [facility] ([facility] : [address] 05[facility] RBC BLD - Aniso moderate ? Final [facility] Morphology, Count Blood Hospital L ab (Internal) : [address] ? ? BLD - Polychr moderate ? Final [facility] L ab (Internal) : [address] [facility] [facility] [place]/19/2018 Retic Count, BLD High Retic 10.5 % 0.5-2.4 % [facility] L [facility] (Internal) : [address] [facility] 05/19/2018 Ldh, Serum or S High Ldh 734 U/L 313-[facility] L ab (Internal) : [address] [facility] 05/19/2018 Ammonia, QN, S High Miky 51 umol/L 9-30 [facility] um[facility]/L [facility] L ab (Internal) : [address] 05/19/2018 Iron S - Iron 49 ug/dL 49-181 Final Nort h Saturation, ug/dL Count [facility] L ab (Internal) : [address] ? ? S - Tibc 322 ug/dL 261-462 Final [place] ug/dL [facility] L ab (Internal) : [address] ? ? S Low Sat 15 % 20-55 % Final [facility] L ab (Internal) : [address] 05/19/2018 Haptoglobin, S Low Haptogl <7 mg/dL 32-[address] [facility] Serum obin mg/dL [facility] L ab (Internal) : [address] 05/18/2018 CBC W/ Auto BLD - Wbc 7.3 5.0-10.0 Final [place] Diff 10*3/uL 10*3/uL [facility] L ab (Internal) : [address] ? ? BLD Low Rbc 2.53 4.60-6.00 Final [place] 10*6/uL 10*6/uL [facility] L ab (Internal) : [address] ? ? BLD Low Hgb 8.3 g/dL 14.0-18.0 Final [place] g/dL [facility] (Internal) : [address] t ? ? BLD Low Hct 24.0 % 41.0-51.0 Final [facility] L ab (Internal) : [address] t ? ? BLD - Mcv 94.9 fL 80.0-96.0 Final [facility] L ab (Internal) : [address] t ? ? BLD High Mch 32.8 pg 26.0-32.0 Final [facility] L ab (Internal) : [address] t ? ? BLD - Mchc 34.6 g/dL 31.0-35.0 Final Nort h g/dL [facility] L ab (Internal) : [address] t ? ? BLD High Rdw 15.3 % 11.5-14.5 Final [facility] L ab (Internal) : [address] t ? ? BLD Low Plt 63 10*3/uL 130-450 Final [place] 10*3/uL [facility] L ab (Internal) : [address] t ? ? BLD - Anc 4.55 ? Final [place] 10*3/uL [facility] L ab (Internal) : [address] t ? ? BLD - Neutro 62.1 % 40.0-75.0 Final [facility] L ab (Internal) : [address] t ? ? BLD Low Lymph 19.9 % 20.0-50.0 Final [facility] L ab (Internal) : [address] t ? ? BLD High Blanco 10.5 % 2.0-10.0 Final [facility] L ab (Internal) : [address] t ? ? BLD - Eos 5.3 % 1.0-6.0 % Final [facility] L ab (Internal) : [address] t ? ? BLD High Baso 1.1 % 0.0-1.0 % Final [facility] L ab (Internal) : [address] t ? ? BLD High Ig 1.1 % 0.0-0.9 % Final [facility] L ab (Internal) : [address] t 05/18/2018 Ammonia, QN, S High Miky 54 umol/L 9-30 Brittani l [facility] umol/L [facility] L [facility] (Internal) : [address] 05/18/2018 CMP, Serum or S - g/r 91 mg/dL 74-106 Brittani l [facility] Plasma mg/dL [facility] L [facility] (Internal) : [address] t ? ? S - Bun 19 mg/dL 9-20 Final [facility] mg/dL [facility] L [facility] (Internal) : [address] ? ? S - Crea 1.10 mg/dL 0.66-1.25 Final [facility] mg/dL [facility] L [facility] (Internal) : [address] ? ? S Low Ca 7.1 mg/dL 8.4-10.2 Final [facility] mg/dL [facility] (Internal) : [address] ? ? S - Na 139 mmol/L 137-145 Final [facility] mmol/L [facility] L [facility] (Internal) : [address] ? ? S - K 3.6 mmol/L 3.5-5.1 Final [facility] mmol/L [facility] (Internal) : [address] ? ? S - Cl 107 mmol/L 98-107 Final [facility] mmol/L [facility] L [facility] (Internal) : [address] t ? ? S - Tco2 22.0 22.0-30.0 Final [facility] mmol/L mmol/L [facility] L [facility] (Internal) : [address] t ? ? S Low Tp 5.2 g/dL 6.3-8.2 Final [facility] g/dL [facility] L [facility] (Internal) : [address] t ? ? S Low Alb 2.6 g/dL 3.5-5.0 Final [facility] g/dL [facility] (Internal) : [address] t ? ? S High Tbil 1.8 mg/dL 0.2-1.3 Final [facility] mg/dL [facility] L [facility] (Internal) : [address] t ? ? S - Alp 46 U/L 38-126 Final [facility] U/L [facility] (Internal) : [address] ? ? S - Alt 38 U/L 21-72 U/L [facility] (Sgpt) [facility] L ab (Internal) : [address] t ? ? S - Ast 51 U/L 17-59 U/L [facility] (Sgot) [facility] L ab (Internal) : [address] 05/18/2018 RBC BLD - Aniso moderate ? Final Nort h Morphology, Count ry Blood Hospital L ab (Internal) : [address] 05/18/2018 TSH, Serum or S - Tsh 2.46 0.47-4.68 Fin al [place] Plasma u[IU]/mL u[IU]/mL [facility] L [facility] (Internal[facility] : [address] 05/18/2018 Fecal Occult STL ABNORMAL Occ Bld positive negative Final [place] Blood, Stool Coun try Hospital L ab (Internal) : [address] 05/18/2018 C Diff Toxin STOOL - C. Diff negative negative F inal [place] Genes, Qual, ([facility]) Coun try PCR, Stool Hospit al Lab (Internal) : [address] 05/18/2018 Giardia STL - Giardia negative negative Final [place] Lamblia Ag, Count ry EIA, Stool Hospit al Lab (Internal) : [address] 05/18/2018 Enteric STL - Salmone see ? Final Nor th Bacteria, lla PCR comments Coun try Organism Hospital Lab Specific (Interna l): Culture, [address] ? ? STL - Shigell see ? Final [facility] a PCR comments [facility] L ab (Internal) : [address] ? ? STL - Campylo see ? Final [facility] bacter comments [facility] L ab (Internal) : [address] ? ? STL - Shiga see ? Final [place] Toxin comments [facility] Hospital L ab (Internal) : [address] 05/16/2018 BMP, Serum or S High g/r 153 mg/dL 74-106 Fin al [place] Plasma mg/dL [facility] L ab (Internal) : [address], [place] ? ? S High Bun 32 mg/dL 9-20 Final [place] mg/dL [facility] L ab (Internal) : [address] t ? ? S High Crea 1.50 mg/dL 0.66-1.[address] [facility] th mg/dL [facility] (Internal) : [address] t ? ? S Low Ca 7.9 mg/dL 8.4-10.2 Final [place] mg/dL [facility] L ab (Internal) : [address] t ? ? S Low Na 136 mmol/L 137-145 Final [place] mmol/L [facility] L ab (Internal) : [address] t ? ? S - K 4.2 mmol/L 3.5-5.1 Final [place] mmol/L [facility] L ab (Internal) : [address] t ? ? S - Cl 101 mmol/L 98-107 Final [place] mmol/L [facility] L ab (Internal) : [address] t ? ? S - Tco2 24.0 22.0-30.0 Final [place] mmol/L mmol/L [facility] L ab (Internal) : [address] 05/16/2018 Cbc BLD - Wbc 8.2 5.0-10.0 Final Nort h 10*3/uL 10*3/uL [facility] ([facility]) : [address] t ? ? BLD Low Rbc 2.59 4.60-6.00 Final [place] 10*6/uL 10*6/uL [facility] L [facility] (Internal) : [address] t ? ? BLD Low Hgb 8.4 g/dL 14.0-18.0 Final [place] g/dL [facility] L ab (Internal) : [address] t ? ? BLD Low Hct 23.8 % 41.0-51.0 Final [place] % [facility] L ab (Internal) : [address] t ? ? BLD - Mcv 91.9 fL 80.0-96.0 Final [place] fL [facility] L ab (Internal) : [address] t ? ? BLD High Mch 32.4 pg 26.0-32.0 Final [facility] L ab (Internal) : [address] t ? ? BLD High Mchc 35.3 g/dL 31.0-35.0 Final Nort h g/dL [facility] L ab (Internal) : [address] t ? ? BLD High Rdw 14.6 % 11.5-14.5 Final [facility] L ab (Internal) : [address] t ? ? BLD Low Plt 61 10*3/uL 130-450 Final [place] 10*3/uL [facility] L ab (Internal) : [address] t ? ? BLD - Anc 5.43 ? Final [place] 10*3/uL [facility] L ab (Internal) : [address] t 05/16/2018 Cbc BLD High Wbc 10.4 5.0-10.0 Final Nort h 10*3/uL 10*3/uL [facility] L ab (Internal) : [address] t ? ? BLD Low Rbc 2.72 4.60-6.00 Final [place] 10*6/uL 10*6/uL [facility] L ab (Internal) : [address] t ? ? BLD Low Hgb 8.9 g/dL 14.0-18.0 Final [place] g/dL [facility] L ab (Internal) : [address] t ? ? BLD Low Hct 25.1 % 41.0-51.0 Final [facility] L ab (Internal) : [address] t ? ? BLD - Mcv 92.3 fL 80.0-96.0 Final [facility] L ab (Internal) : [address] t ? ? BLD High Mch 32.7 pg 26.0-32.0 Final [facility] L ab (Internal) : [address] t ? ? BLD High Mchc 35.5 g/dL 31.0-35.0 Final Nort h g/dL [facility] L ab (Internal) : [address] t ? ? BLD High Rdw 15.1 % 11.5-14.5 Final [facility] L ab (Internal) : [address] t ? ? BLD Low Plt 77 10*3/uL 130-450 Final [place] 10*3/uL [facility] L ab (Internal) : [address] omar ? ? BLD - Anc 6.71 ? Final [place] 10*3/uL [facility] L ab (Internal) : [address] 05/15/2018 Cbc BLD High Wbc 12.7 5.0-10.0 Final Nort h 10*3/uL 10*3/uL [facility] L ab (Internal) : [address] omar ? ? BLD Low Rbc 3.26 4.60-6.00 Final [place] 10*6/uL 10*6/uL [facility] L ab (Internal) : [address] ? ? BLD Low Hgb 10.6 g/dL 14.0-18.0 Final Nort h g/dL [facility] L ab (Internal) : [address] ? ? BLD Low Hct 29.6 % 41.0-51.0 Final [facility] L ab (Internal) : [address] omar ? ? BLD - Mcv 90.8 fL 80.0-96.0 Final [facility] L ab (Internal) : [address] ? ? BLD High Mch 32.5 pg 26.0-32.0 Final [facility] L ab (Internal) : [address] ? ? BLD High Mchc 35.8 g/dL 31.0-35.0 Final Nort h g/dL [facility] L ab (Internal) : [address] ? ? BLD - Rdw 14.2 % 11.5-14.5 Final [facility] L ab (Internal) : [address] ? ? BLD Low Plt 110 130-450 Final [place] 10*3/uL 10*3/uL [facility] L ab (Internal) : [address] ? ? BLD - Anc 9.39 ? Final [place] 10*3/uL [facility] L ab (Internal) : [address] 05/15/2018 Cbc BLD High Wbc 11.7 5.0-10.0 Final Nort h 10*3/uL 10*3/uL [facility] L ab (Internal) : [address] ? ? BLD Low Rbc 2.91 4.60-6.00 Final [place] 10*6/uL 10*6/uL [facility] L ab (Internal) : [address] t ? ? BLD Low Hgb 9.5 g/dL 14.0-18.0 Final [place] g/dL [facility] L ab (Internal) : [address] t ? ? BLD Low Hct 26.4 % 41.0-51.0 Final [facility] L ab (Internal) : [address] ? ? BLD - Mcv 90.7 fL 80.0-96.0 Final [facility] L ab (Internal) : [address] ? ? BLD High Mch 32.6 pg 26.0-32.0 Final [facility] L ab (Internal) : [address] t ? ? BLD High Mchc 36.0 g/dL 31.0-35.[address] L [facility] (Internal[facility] : [address] ? ? BLD - Rdw 14.5 % 11.5-14.5 Final [facility] L ab (Internal) : [address] ? ? BLD Low Plt 98 10*3/uL 130-450 Final [place] 10*3/uL [facility] L ab (Internal) : [address] ? ? BLD - Anc 7.87 ? Final [place] 10*3/uL [facility] L ab (Internal) : [address] 05/14/2018 CBC W/ Auto BLD High Wbc 13.8 5.0-10.0 Final [place] Diff 10*3/uL 10*3/uL [facility] L ab (Internal) : [address] ? ? BLD Low Rbc 4.01 4.60-6.00 Final [place] 10*6/uL 10*6/uL [facility] L ab (Internal) : [address] t ? ? BLD Low Hgb 13.2 g/dL 14.0-18.0 Final Nort h g/dL [facility] L ab (Internal) : [address] ? ? BLD Low Hct 37.1 % 41.0-51.0 Final [facility] L ab (Internal) : [address] ? ? BLD - Mcv 92.5 fL 80.0-96.0 Final [facility] L ab (Internal) : [address] ? ? BLD High Mch 32.9 pg 26.0-32.0 Final [facility] L ab (Internal) : [address] ? ? BLD High Mchc 35.6 g/dL 31.0-35.0 Final Nort h g/dL [facility] L ab (Internal) : [address] ? ? BLD - Rdw 13.9 % 11.5-14.5 Final [facility] L ab (Internal) : [address] ? ? BLD Low Plt 118 130-450 Final [place] 10*3/uL 10*3/uL [facility] L ab (Internal) : [address] ? ? BLD - Anc 10.20 ? Final [place] 10*3/uL [facility] L ab (Internal) : [address] ? ? BLD - Neutro 73.9 % 40.0-75.0 Final [facility] L ab (Internal) : [address] ? ? BLD Low Lymph 11.8 % 20.0-50.0 Final [facility] L ab (Internal) : [address] ? ? BLD - Blanco 9.5 % 2.0-10.0 Final [facility] L ab (Internal) : [address] ? ? BLD - Eos 2.8 % 1.0-6.0 % Final [facility] Hospital L ab (Internal) : [address] ? ? BLD High Baso 1.4 % 0.0-1.0 % Final [facility] L ab (Internal) : [address] ? ? BLD - Ig 0.6 % 0.0-0.9 % Final [facility] L ab (Internal) : [address] t 05/14/2018 CMP, Serum or S High g/r 366 mg/dL 74-106 Fin al [facility] Plasma mg/dL [facility] ([facility] : [address] t ? ? S High Bun 22 mg/dL 9-20 Final [facility] mg/dL [facility] L ab (Internal) : [address] t ? ? S High Crea 1.50 mg/dL 0.66-1.25 Final [facility] mg/dL [facility] (Internal) : [address] ? ? S - Ca 9.3 mg/dL 8.4-10.2 Final [facility] mg/dL [facility] (Internal) : [address] t ? ? S Low Na 134 mmol/L 137-145 Final [place] mmol/L [facility] L ab (Internal) : [address] t ? ? S - K 4.8 mmol/L 3.5-5.1 Final [place] mmol/L [facility] L ab (Internal) : [address] t ? ? S Low Cl 91 mmol/L 98-107 Final [place] mmol/L [facility] L ab (Internal) : [address] t ? ? S - Tco2 30.0 22.0-30.0 Final [place] mmol/L mmol/L [facility] L ab (Internal) : [address] ? ? S - Tp 6.5 g/dL 6.3-8.2 Final [place] g/dL [facility] L ab (Internal) : [address] t ? ? S Low Alb 3.4 g/dL 3.5-5.0 Final [place] g/dL [facility] L ab (Internal) : [address] t ? ? S High Tbil 3.6 mg/dL 0.2-1.3 Final [place] mg/dL [facility] L ab (Internal) : [address] t ? ? S - Alp 68 U/L 38-126 Final [place] U/L [facility] L ab (Internal) : [address] ? ? S - Alt 36 U/L 21-72 U/L Final [facility] (Sgpt) [facility] (Internal) : [address], [place] ? ? S - Ast 42 U/L 17-59 U/L Final [place] (Sgot) [facility] L ab (Internal) : [address] 01/13/2018 CBC W/ Auto BLD - Wbc 8.1 5.0-10.0 Final [place] Diff 10*3/uL 10*3/uL [facility] L [facility] (Internal) : [address] ? ? BLD Low Rbc 4.37 4.60-6.00 Final [place] 10*6/uL 10*6/uL [facility] L ab (Internal) : [address] ? ? BLD - Hgb 14.0 g/dL 14.0-18.0 Final Nort h g/dL [facility] L ab (Internal) : [address] t ? ? BLD Low Hct 38.7 % 41.0-51.0 Final [facility] L ab (Internal) : [address] t ? ? BLD - Mcv 88.6 fL 80.0-96.0 Final [facility] Hospital L ab (Internal) : [address] ? ? BLD - Mch 32.0 pg 26.0-32.0 Final [facility] L ab (Internal) : [address] ? ? BLD High Mchc 36.2 g/dL 31.0-35.0 Final Nort h g/dL [facility] L ab (Internal) : [address] t ? ? BLD - Rdw 13.7 % 11.5-14.5 Final [facility] L ab (Internal) : [address] ? ? BLD Low Plt 68 10*3/uL 130-450 Final [place] 10*3/uL [facility] L ab (Internal) : [address] t ? ? BLD - Anc 5.93 ? Final [place] 10*3/uL [facility] L ab (Internal) : [address] t ? ? BLD - Neutro 73.1 % 40.0-75.0 Final [facility] L ab (Internal) : [address] t ? ? BLD Low Lymph 13.3 % 20.0-50.0 Final [facility] ([facility] : [address] t ? ? BLD - Blanco 8.5 % 2.0-10.0 Final [facility] (Internal) : [address] t ? ? BLD - Eos 3.7 % 1.0-6.0 % Final [facility] Hospital L ab (Internal) : [address] t ? ? BLD High Baso 1.2 % 0.0-1.0 % Final [facility] L ab (Internal) : [address] ? ? BLD - Ig 0.2 % 0.0-0.9 % Final [facility] L ab (Internal) : [address] 01/13/2018 CMP, Serum or S High g/r 237 mg/dL 74-106 Fin al [facility] Plasma mg/dL [facility] ([facility]) : [address] t ? ? S - Bun 18 mg/dL 9-20 Final [facility] mg/dL [facility] (Internal) : [address] t ? ? S - Crea 1.10 mg/dL 0.66-1.25 Final [facility] mg/dL [facility] (Internal) : [address] t ? ? S - Ca 9.1 mg/dL 8.4-10.2 Final [facility] mg/dL [facility] (Internal) : [address] t ? ? S Low Na 135 mmol/L 137-145 Final [facility] mmol/L [facility] (Internal) : [address] t ? ? S Low K 3.3 mmol/L 3.5-5.1 Final [facility] mmol/L [facility] (Internal) : [address] t ? ? S Low Cl 96 mmol/L 98-107 Final [facility] mmol/L [facility] L ab (Internal) : [address] t ? ? S High Tco2 31.0 22.0-30.0 Final [facility] mmol/L mmol/L [facility] (Internal) : [address] t ? ? S - Tp 6.7 g/dL 6.3-8.2 Final [place] g/dL [facility] L ab (Internal) : [address] ? ? S - Alb 3.5 g/dL 3.5-5.0 Final [place] g/dL [facility] (Internal) : [address] ? ? S High Tbil 2.2 mg/dL 0.2-1.3 Final [place] mg/dL [facility] (Internal) : [address] ? ? S - Alp 66 U/L 38-126 Final [place] U/L [facility] L ab (Internal) : [address] ? ? S - Alt 40 U/L 21-72 U/L Final [place] (Sgpt) [facility] L ab (Internal) : [address] ? ? S - Ast 46 U/L 17-59 U/L Final [place] (Sgot) [facility] L ab (Internal) : [address] t 01/13/2018 Troponin I, S - Trop <0.06 0.00-0.06 Final [place] Serum or NG/mL NG/mL [facility] L [facility] (Internal) : [address] 01/13/2018 Troponin I, S - Trop <0.06 0.00-0.06 Final [place] Serum or NG/mL NG/mL [facility] (Internal) : [address] 09/19/2016 Venipuncture BLD ? Venpn* ? ? Final [facility] L ab (Internal) : [address] 09/19/2016 RBC BLD ? Aniso small ? Final [place] Morphology, Count Blood Hospital L ab (Internal) : [address] ? ? BLD ? Oval occasional ? Final [facility] L [facility] (Internal) : [address] t 09/19/2016 Prothrombin BLD High Pt 19.9 S 9.1-11.7 Final [facility] L ab (Internal) : [address] ? ? BLD ? Inr 1.9 ? Final [facility] L [facility] (Internal) : [address] t 09/19/2016 Hepatic PLASMA High Tbil 2.4 mg/dL 0.2-1.3 Final N orth Function mg/dL [facility], Serum Hosp ital Lab (Internal) : [address] ? ? PLASMA High Dbil 0.6 mg/dL 0.0-0.3 Final [place] mg/dL [facility] (Internal) : [address] ? ? PLASMA ? Alp 56 U/L 38-126 Final [place] U/L [facility] (Internal) : [address] ? ? PLASMA ? Alt 46 U/L 21-72 U/L Final [place] (Sgpt) [facility] (Internal) : [address] ? ? PLASMA ? Ast 40 U/L 17-59 U/L Final [place] (Sgot) [facility] (Internal) : [address] ? ? PLASMA ? Ggt 62 U/L 15-73 U/L Final [facility] L ab (Internal) : [address] ? ? PLASMA Low Tp 6.2 g/dL 6.3-8.2 Final [place] g/dL [facility] (Internal) : [address] ? ? PLASMA Low Alb 3.0 g/dL 3.5-5.0 Final [place] g/dL [facility] (Internal) : [address] 09/19/2016 CBC W/ Auto BLD ? Wbc 6.9 5.0-10.0 Final [place] Diff 10*3/uL 10*3/uL [facility] (Internal) : [address] ? ? BLD Low Rbc 3.87 4.60-6.00 Final [place] 10*6/uL 10*6/uL [facility] (Internal) : [address] ? ? BLD Low Hgb 9.6 g/dL 14.0-18.0 Final [place] g/dL [facility] (Internal) : [address] ? ? BLD Low Hct 31.0 % 41.0-51.0 Final [place] % [facility] (Internal) : [address] ? ? BLD ? Mcv 80.1 fL 80.0-96.0 Final [facility] L ab (Internal) : [address] ? ? BLD Low Mch 24.8 pg 26.0-32.0 Final [facility] L ab (Internal) : [address] ? ? BLD ? Mchc 31.0 g/dL 31.0-35.0 Final Nort h g/dL [facility] (Internal) : [address] ? ? BLD High Rdw 17.2 % 11.5-14.5 Final [facility] L ab (Internal) : [address] ? ? BLD Low Plt 60 10*3/uL 130-450 Final [place] 10*3/uL [facility] L ab (Internal) : [address] ? ? BLD ? Anc 5.40 ? Final [place] 10*3/uL [facility] L ab (Internal) : [address] ? ? BLD High Neutro 78.3 % 40.0-75.0 Final [facility] L ab (Internal) : [address] ? ? BLD Low Lymph 10.4 % 20.0-50.0 Final [facility] L ab (Internal) : [address] ? ? BLD ? Blanco 9.0 % 2.0-10.0 Final [facility] L ab (Internal) : [address] ? ? BLD ? Eos 1.0 % 1.0-6.0 % Final [facility] L ab (Internal) : [address] ? ? BLD ? Baso 0.9 % 0.0-1.0 % Final [facility] L ab (Internal) : [address] ? ? BLD ? Ig 0.4 % 0.0-0.9 % Final [facility] L ab (Internal) : [address] 09/19/2016 BMP, Serum or PLASMA High g/r 128 mg/dL 74-106 Fin al [place] Plasma mg/dL [facility] (Internal) : [address] ? ? PLASMA High Bun 24 mg/dL 9-20 Final [place] mg/dL [facility] (Internal) : [address] ? ? PLASMA ? Crea 0.90 mg/dL 0.66-1.25 Final Nor th mg/dL [facility] L ab (Internal) : [address] ? ? PLASMA Low Ca 6.8 mg/dL 8.4-10.2 Final [place] mg/dL [facility] L ab (Internal) : [address] ? ? PLASMA ? Na 137 mmol/L 137-145 Final [place] mmol/L [facility] L ab (Internal) : [address] ? ? PLASMA ? K 4.0 mmol/L 3.5-5.1 Final [place] mmol/L [facility] L ab (Internal) : [address] ? ? PLASMA ? Cl 105 mmol/L 98-107 Final [place] mmol/L [facility] L ab (Internal) : [address] ? ? PLASMA ? Tco2 24.0 22.0-30.0 Final [place] mmol/L mmol/L [facility] L ab (Internal) : [address] 09/18/2016 Venipuncture BLD ? Venpn* ? ? Final [facility] L ab (Internal) : [address] 09/18/2016 Ammonia, QN, S High Miky 50 umol/L 9-30 Brittani l [facility] Plasma umol/L [facility] L ab (Internal) : [address] 09/18/2016 CRP, High PLASMA High Rcrp 0.47 mg/dL 0.10-0.30 Fin al [place] Sensitivity, mg/dL Coun try Serum or Hospital Lab Plasma (Internal) : [address] 09/18/2016 Culture, BLD ? Final microbiolo ? Final [place] Blood gy results Countr y Hospital L ab (Internal) : [address] [facility] 09/[facility]2016 Culture, BLD ? Final microbiolo ? Final [place] Blood gy results Countr Hospital L ab (Internal) : [address] 09/18/2016 Lactic Acid, S High La 3.0 mmol/L 0.7-2.1 Fi nal [place] Blood mmol/L [facility] [address] [facility]/18/2016 Lactic Acid, S High La 3.0 mmol/L 0.7-2.1 Fi nal [place] Blood mmol/L [facility] L [facility] (Internal) : [address] [facility] 09/18/2016 Bilirubin, S High Dbil 0.7 mg/dL 0.0-0.3 Final [place] Direct, Serum mg/dL Cou ntr or Plasma Hospita l Lab (Internal) : [address] [facility] 09/18/2016 Lipase, Serum S ? Lip 155 U/L 23-300 Final [place] or Plasma U/L [facility] (Internal) : [address] [facility] 09/18/2016 Prothrombin BLD High Pt 16.4 S 9.1-11.7 Final [place] Time S [facility] (Internal) : [address] ? ? BLD ? Inr 1.6 ? Final [facility] L ab (Internal) : [address] [facility] 09/18/2016 Troponin I, S ? Trop <0.06 0.00-0.06 Final [place] Serum or NG/mL NG/mL [facility] L ab (Internal) : [address] [facility] 09/18/2016 Neutrophil BLD ? Anc-man 8.92 ? Final [place] Count, ual 10*3/uL [facility] Lab (Anc), Blood (Int ernal): [address] 09/18/2016 Differential, BLD High Polys 87 % 40-75 % Final [place] Manual, Blood Cou [facility] L ab (Internal) : [address] ? ? BLD ? Bands 1 % 0-5 % Final [facility] L ab (Internal) : [address] ? ? BLD Low Lymphs 3 % 20-50 % Final [facility] L ab (Internal) : [address] ? ? BLD ? Blanco 7 % 2-10 % Final [facility] L ab (Internal) : [address] ? ? BLD ? Eos 2 % 0-6 % Final [facility] L ab (Internal) : [address] ? ? BLD ? Baso 0 % 0-1 % Final [facility] L ab (Internal) : [address] ? ? BLD ? Atyp 0 % ? Final [facility] L ab (Internal) : [address] ? ? BLD ABNORMAL Plts, low adequate Final [facility] L ab (Internal) : [address] ? ? BLD ABNORMAL RBC abnormal normal Final [facility] L ab (Internal) : [address] ? ? BLD ? Aniso small ? Final [facility] L ab (Internal) : [address] ? ? BLD ? Micro occasional ? Final [facility] L ab (Internal) : [address] ? ? BLD ? Poik occasional ? Final [place] [hpf] [facility] L ab (Internal) : [address] 09/18/2016 CMP, Serum or S High g/r 160 mg/dL 74-106 Fin al [facility] Plasma mg/dL [facility] L [facility] (Internal) : [address] ? ? S ? Bun 20 mg/dL 9-20 Final [place] mg/dL [facility] L ab (Internal) : [address] ? ? S ? Crea 0.90 mg/dL 0.66-1.25 Final Nor th mg/dL [facility] L ab (Internal) : [address] ? ? S ? Ca 8.5 mg/dL 8.4-10.2 Final [place] mg/dL [facility] L [facility] (Internal) : [address] ? ? S ? Na 141 mmol/L 137-145 Final [place] mmol/L [facility] L ab (Internal) : [address] ? ? S ? K 4.4 mmol/L 3.5-5.1 Final [place] mmol/L [facility] L ab (Internal) : [address] ? ? S ? Cl 102 mmol/L 98-107 Final [place] mmol/L [facility] L ab (Internal) : [address] ? ? S ? Tco2 26.0 22.0-30.0 Final [place] mmol/L mmol/L [facility] (Internal) : [address] ? ? S ? Tp 8.1 g/dL 6.3-8.2 Final [place] g/dL [facility] L ab (Internal) : [address] ? ? S ? Alb 4.1 g/dL 3.5-5.0 Final [place] g/dL [facility] L [facility] (Internal) : [address] ? ? S High Tbil 2.1 mg/dL 0.2-1.3 Final [place] mg/dL [facility] L [facility] (Internal) : [address] ? ? S ? Alp 80 U/L 38-126 Final [place] U/L [facility] L [facility] (Internal) : [address] ? ? S ? Alt 56 U/L 21-72 U/L Final [place] (Sgpt) [facility] (Internal) : [address] ? ? S High Ast 68 U/L 17-59 U/L Final [place] (Sgot) [facility] (Internal) : [address] 09/18/2016 CBC W/ Auto BLD High Wbc 10.1 5.0-10.0 Final [place] Diff 10*3/uL 10*3/uL [facility] (Internal) : [address] ? ? BLD ? Rbc 4.90 4.60-6.00 Final [place] 10*6/uL 10*6/uL [facility] L [facility] (Internal) : [address] ? ? BLD Low Hgb 12.3 g/dL 14.0-18.0 Final Nort h g/dL [facility] L [facility] (Internal) : [address] ? ? BLD Low Hct 39.0 % 41.0-51.0 Final [place] % [facility] (Internal) : [address] ? ? BLD Low Mcv 79.6 fL 80.0-96.0 Final [place] fL [facility] L [facility] (Internal) : [address] ? ? BLD Low Mch 25.1 pg 26.0-32.0 Final [place] pg [facility] L [facility] (Internal) : [address] ? ? BLD ? Mchc 31.5 g/dL 31.0-35.0 Final Nort h g/dL [facility] L ab (Internal) : [address] ? ? BLD High Rdw 17.0 % 11.5-14.5 Final [place] % [facility] L ab (Internal) : [address] ? ? BLD Low Plt 89 10*3/uL 130-450 Final [place] 10*3/uL [facility] L ab (Internal) : [address] Past Encounters 10/14/2020 Rashard Melgar MD: [address] [place] [address], Ph. Social History Tobacco Smoking Status Former Smoker Vaccine List None recorded. Plan of Care Reminders Provider Appointments None ? ? recorded. Lab None ? ? recorded. Referral None ? ? recorded. Procedures None ? ? recorded. Surgeries None ? ? recorded. Imaging None ? ? recorded. Vitals 10/14/2020 12:30PM Office 15 Blood Pressure 120/62 mm[Hg] 06/24/2018 Height Weight BMI Blood Pressure 172.72 cm 97.34 kg 32.6 kg/m2 99/63 mm[Hg]
[2020-10-30] MEDS: VANCOMYCIN/WATER (PEG) 2 GM/400 ML BAG IV (13:45)
[2020-10-30] MEDS: PROPOFOL 1,000 MG/100 ML BTL 17.784 MG IVPB ×2 (14:36→19:08)
--- NOTE | 2020-10-30 15:00 | RESPIRATORY ---
RT called to ER for an intubation on a patient with alterned mental status and liver failure. Upon RT's arrival, patient was unconscious and Dr. Hutchinson instructed RT what he wanted for the intubation. A 7.0 tube was inserted by Dr. Colon with Dr. Sanders assistance. Bilateral breath sounds were heard, there was a return of CO2 and xray was done to confirming placement. Patient initial settings were: VT 410 RR 15 FiO2 100 and a Peep 5. Setting were titrated as needed according to ABG and patient transferred to ICU 219 around 11:00 and ICU nurse took over care from ER. RT assisted in transporting patient to ICU and free to leave once patient comfortable. Rt told nursing she would be back to check in on patient status and left.
[2020-10-30] MEDS: Pantoprazole 40 MG VIAL IVP (16:28)
[2020-10-30] MEDS: Normal Saline Flush 10 ML SYR IVP ×2 (16:28→19:59)
[2020-10-30] MEDS: Lactulose 20 GM/30 ML CUP NG ×2 (16:28→19:59)
[2020-10-30 16:33] LABS: Troponin I < 0.05 ng/mL (<0.06)
[2020-10-30] MEDS: Insulin Aspart 300 UNITS/3 ML PEN SC (18:07)
[2020-10-30] MEDS: Albuterol/Ipratropium 3 ML UPD VIAL UPD (18:28)
[2020-10-30] MEDS: Propranolol 20 MG TAB NG (19:59)
[2020-10-30] MEDS: Venlafaxine 75 MG TAB NG (19:59)
[2020-10-30] MEDS: Lacri-Lube 3.5 GM TUBE OU (20:01)
[2020-10-30] MEDS: Insulin Glargine 300 UNITS/3 ML PEN 15 UNITS SC (23:02)
[2020-10-31] VITALS (71 sets, daily range): BP systolic 90–129; BP diastolic 45–95; PULSE 54–133; RESP 1–32; TEMP 35.7–36.6; O2SAT 96–100
[2020-10-31] MEDS: Albuterol/Ipratropium 3 ML UPD VIAL UPD ×4 (00:01→17:41)
[2020-10-31] MEDS: Insulin Aspart 300 UNITS/3 ML PEN SC ×2 (00:17→17:47)
[2020-10-31] MEDS: PROPOFOL 1,000 MG/100 ML BTL 14.82 MG IVPB (02:13)
[2020-10-31] MEDS: Lactulose 20 GM/30 ML CUP NG ×3 (04:18→07:37)
[2020-10-31] MEDS: PIPERACILLIN/TAZO 3.375 GM in Normal Saline 50 ML IVPB ×4 (06:04→17:48)
[2020-10-31 06:55] LABS: Ammonia 75 umol/L (11-32)
[2020-10-31 06:57] LABS: Abs Immature Grans 0.02 10^3/uL (0.0-0.06); Absolute Eosinophil Count 0.53 10^3/uL (0.0-0.7); Absolute Lymphocyte Count 0.61 10^3/uL (1.2-3.4); Absolute Monocyte Count 0.68 10^3/uL (0.1-0.8); Absolute Neutrophil Count 5.01 10^3/uL (1.2-6.7); Basophils % 1.4; Eosinophils % 7.6; HCT 27.9 % (40.0-50.0); HGB 9.5 g/dL (13.5-17.5); Immature Grans % 0.3; Lymphocytes % 8.8; MCH 32.2 pg (27.0-33.0); MCHC 34.1 % (32.0-36.0); MCV 94.6 fL (80-95); MPV 8.9 fL (8.0-11.0); Monocytes % 9.8; Neutrophils % 72.1; Nucleated RBC 0 %; RBC 2.95 10^6/uL (4.36-5.78); RDW 16.4 % (11.8-14.1); RDW-SD 56.5 fL; WBC 6.95 10^3/uL (4.4-10.8)
[2020-10-31 07:06] LABS: INR 1.5 (0.9-1.1); Prothrombin Time 15.4 sec (9.3-11.0)
[2020-10-31 07:12] LABS: ALT 26 U/L (16-63); AST 32 U/L (15-37); Albumin 2.3 g/dL (3.4-5.0); Alkaline Phosphatase 113 U/L (46-116); Anion Gap 14.8 mmol/L (3-11); BUN 25 mg/dL (7-18); Bilirubin, Direct 1.6 mg/dL (0.0-0.2); CO2 24.2 mmol/L (21.0-32.0); CREATININE 2.1 mg/dL (0.70-1.30); Calcium 8.1 mg/dL (8.5-10.1); Chloride 111 mmol/L (98-107); Estimated GFR 30.86 (mL/min/1.73m2); Glucose 129 mg/dL (74-106); Magnesium 1.7 mg/dL (1.8-2.4); Potassium 3.5 mmol/L (3.5-5.1); Sodium 150 mmol/L (136-145); Total Protein 6.2 g/dL (6.4-8.2); Troponin I < 0.05 ng/mL (<0.06)
[2020-10-31 07:26] LABS: Platelet Count 60 10^3/uL (130-400)
[2020-10-31 07:27] LABS: Anisocytosis 1+; Diff Comment Diff Reviewed
[2020-10-31] MEDS: PROPOFOL 1,000 MG/100 ML BTL 25 MG IVPB (07:35)
[2020-10-31] MEDS: Propranolol 20 MG TAB NG (07:38)
[2020-10-31] MEDS: Venlafaxine 75 MG TAB NG ×2 (07:38→21:35)
[2020-10-31] MEDS: Lacri-Lube 3.5 GM TUBE OU ×2 (07:43→21:33)
[2020-10-31 07:50] LABS: BE 0 mmol/L (-2-3); HCO3 24 mmol/L (22-26); pCO2 34 mmHg (35-45); pH 7.46 (7.35-7.45); pO2 86 mmHg (80-105); sO2 98 % (95-98); tCO2 22 mmol/L (23-27)
[2020-10-31 07:52] LABS: FIO2 21 %; Site Right Radial
[2020-10-31 07:55] LABS: Lactate 1.5 mmol/L (0.6-1.4)
--- NOTE | 2020-10-31 08:25 | W.PM.PROGNOT ---
Date of Service Date of service: 10/31/20 Time of Service: 12:20 Assessment and Plan Assessment and plan (1) Respiratory failure requiring intubation: Status: Acute Assessment and plan: In setting of hepatic encephalopathy. Intubated, not yet able to follow commands - encephalopathy needs to be treated better. Continue vent. Work on improving hepatic encephalopathy. Continue to treat empirically for pneumonia (vanco/zosyn). Daily weaning trials/sedation vacations. (2) Encephalopathy, hepatic: Status: Acute Assessment and plan: Increase lactulose (still no BM) and continue rifaximin via OGT. Continue to Trend ammonia and monitor mental status. Trigger could be SBP, PNA. Monitor mental status on the vent. (3) Ascites due to alcoholic cirrhosis: Status: Chronic Assessment and plan: Concern for SBP. Continue empiric abx as above We have to assume his ascites fluid is infected and paracenthesis would be risky given him thrombocytopenia and coagulopathy. (4) Pneumonia: Status: Acute Assessment and plan: HCAP vs aspiration pneumonia. Continue empiric vancomycin/zosyn initiated in the ED. Could be a trigger for encephalopathy or result of encephalopathy, but does not appear to be the cause for respiratory failure as the patient's O2 requirement on the vent is minimal. Wean vent as tolerated. Await sputum and blood cx. (5) End stage liver disease: Status: Chronic Assessment and plan: With known encephalopathy, portal hypertension, thrombocytopenia, coagulopathy. Will monitor for bleeding. Await palliative care consult. (6) Afib: Status: Chronic Assessment and plan: Rate controlled. Would not initiate patient on anticoagulation. (7) Thrombocytopenia: Status: Chronic Assessment and plan: Avoid chemical DVT ppx (8) Coagulopathy: Status: Chronic Assessment and plan: In setting of liver disease. Monitor for bleeding. Avoid anticoagulation. (9) IDDM (insulin dependent diabetes mellitus): Status: Chronic Assessment and plan: No change to insulin regimen. Continue low dose long acting insulin + SSI (10) DVT prophylaxis: Status: Acute Assessment and plan: TEDs/SCDS. Chemical DVT PPx is contraindicated in setting of thrombocytopenia, coagulopathy (11) Discharge planning issues: Status: Acute Assessment and plan: Full code Keep in ICU. Await Palliative care [facility] - [facility] unable to accomodate transfer. Total Critical Care Time 60 minutes. Subjective Subjective Interval history since last seen: Patient not able to answer questions - intubated, no longer on sedation, but not answering questions. No BM yet. No hypotension overnight. No fevers. No vent issues. Overbreathing the vent this morning. Grimacing. Did well with weaning trial from respiratory stand point but not waking up enough to follow commands, so extubation will be re-attempted tomorrow. Afib 70-80s, intermittent pauses up to 2.3 sec, PVCs. No drainage from paracenthesis site. FBG 119. Exam Narrative Exam Narrative: General: Elderly male, intubated, sedated, opens eyes to voice, but not following commands; breathing spontaneously over the vent, moving all 4 extremities nonpurpusefully HEENT: Pupils slightly bigger today, MMM, orogastric tube/ET tube Cardiovascular: irregularly irregular rhythm, HR in the 50s, +DAISY Lungs: ventilator breath sounds Gastrointestinal: ascites - no increase or decrease from yesterday; L-sided abdominal wound post paracenthesis without drainage Genitourinary: has a duenas Extremities: trace edema BLEs, +1 pedal pulse RLE, trace pedal pulse LLE, wearing SCDs. Objective Last Vital Signs Temp 36.3 C L 10/31/20 07:46 Pulse 90 10/31/20 07:46 Resp 24 10/31/20 08:06 BP 125/64 10/31/20 08:06 Pulse Ox 99 10/31/20 08:06 Laboratory Results - last 24 hr 10/30/20 10/30/20 10/30/20 08:55 08:55 08:55 WBC 6.92 RBC 2.97 L Hgb 9.6 L Hct 27.8 L MCV 93.6 MCH 32.3 MCHC 34.5 RDW 15.5 H Plt Count 68 L MPV 8.8 Immature Gran % 0.3 Neutrophils % 68.8 Lymphocytes % 13.7 Monocytes % 9.1 Eosinophils % 6.9 Basophils % 1.2 Nucleated RBC % 0 Absolute Neutrophils 4.76 Absolute Lymphocytes 0.95 L Absolute Monocytes 0.63 Absolute Eosinophils 0.48 Absolute Basophils 0.08 RBC Morphology Normal Anisocytosis PT INR APTT ABG Sample Site ABG pH ABG pCO2 ABG pO2 ABG HCO3 ABG Total CO2 ABG O2 Saturation ABG Base Excess VBG Lactate 2.3 H* Oxygen Liter Flow FiO2 Sodium 142 Potassium 4.0 Chloride 109 H Carbon Dioxide 26.6 Anion Gap 6.4 BUN 25 H Creatinine 2.1 H Estimated GFR/1.73 m2 30.86 Glucose 168 H Calcium 8.0 L Magnesium Total Bilirubin 2.5 H Conjugated Bilirubin AST 33 ALT 30 Alkaline Phosphatase 126 H Ammonia Troponin I < 0.05 Total Protein 6.4 Albumin 2.5 L TSH 1.71 Urine Color Urine Clarity Urine pH Ur Specific Gifford Urine Protein Urine Ketones Urine Blood Urine Nitrite Urine Bilirubin Urine Urobilinogen Ur Leukocyte Esterase Urine RBC Urine WBC Ur Epithelial Cells Urine Crystals Urine Bacteria Urine Casts Urine Mucus Urine Other Ur Culture Indicated? Urine Glucose COVID-19 Source SARS-CoV-2 (PCR) 10/30/20 10/30/20 10/30/20 08:55 09:05 09:38 WBC RBC Hgb Hct MCV MCH MCHC RDW Plt Count MPV Immature Gran % Neutrophils % Lymphocytes % Monocytes % Eosinophils % Basophils % Nucleated RBC % Absolute Neutrophils Absolute Lymphocytes Absolute Monocytes Absolute Eosinophils Absolute Basophils RBC Morphology Anisocytosis PT 13.8 H INR 1.4 H APTT 32.3 H ABG Sample Site ABG pH ABG pCO2 ABG pO2 ABG HCO3 ABG Total CO2 ABG O2 Saturation ABG Base Excess VBG Lactate Oxygen Liter Flow FiO2 Sodium Potassium Chloride Carbon Dioxide Anion Gap BUN Creatinine Estimated GFR/1.73 m2 Glucose Calcium Magnesium Total Bilirubin Conjugated Bilirubin AST ALT Alkaline Phosphatase Ammonia Troponin I Total Protein Albumin TSH Urine Color Cancelled Yellow Urine Clarity Cancelled Clear Urine pH Cancelled 5.5 Ur Specific G[place]ord Cancelled 1.020 Urine Protein Cancelled Negative Urine Ketones Cancelled Negative Urine Blood Cancelled Negative Urine Nitrite Cancelled Negative Urine Bilirubin Cancelled Negative Urine Urobilinogen Cancelled 0.2 Ur Leukocyte Esterase Cancelled Negative Urine RBC Cancelled Urine WBC Cancelled Ur Epithelial Cells Cancelled Urine Crystals Cancelled Urine Bacteria Cancelled Urine Casts Cancelled Urine Mucus Cancelled Urine Other Cancelled Ur Culture Indicated? Cancelled Urine Glucose Cancelled Negative COVID-19 Source SARS-CoV-2 (PCR) 10/30/20 10/30/20 10/30/20 09:45 11:00 11:33 WBC RBC Hgb Hct MCV MCH MCHC RDW Plt Count MPV Immature Gran % Neutrophils % Lymphocytes % Monocytes % Eosinophils % Basophils % Nucleated RBC % Absolute Neutrophils Absolute Lymphocytes Absolute Monocytes Absolute Eosinophils Absolute Basophils RBC Morphology Anisocytosis PT INR APTT ABG Sample Site Right radial ABG pH 7.40 ABG pCO2 40 ABG pO2 320 H ABG HCO3 25 ABG Total CO2 ABG O2 Saturation > 99 H ABG Base Excess 1 VBG Lactate Oxygen Liter Flow Vt 410 rr 15 peep 5 FiO2 70 Sodium Potassium Chloride Carbon Dioxide Anion Gap BUN Creatinine Estimated GFR/1.73 m2 Glucose Calcium Magnesium Total Bilirubin Conjugated Bilirubin AST ALT Alkaline Phosphatase Ammonia 130 H Troponin I Total Protein Albumin TSH Urine Color Urine Clarity Urine pH Ur Specific G[place] Urine Protein Urine Ketones Urine Blood Urine Nitrite Urine Bilirubin Urine Urobilinogen Ur Leukocyte Esterase Urine RBC Urine WBC Ur Epithelial Cells Urine Crystals Urine Bacteria Urine Casts Urine Mucus Urine Other Ur Culture Indicated? Urine Glucose COVID-19 Source Nasopharyx SARS-CoV-2 (PCR) Negative 10/30/20 10/30/20 10/31/20 11:58 16:00 06:35 WBC RBC Hgb Hct MCV MCH MCHC RDW Plt Count MPV Immature Gran % Neutrophils % Lymphocytes % Monocytes % Eosinophils % Basophils % Nucleated RBC % Absolute Neutrophils Absolute Lymphocytes Absolute Monocytes Absolute Eosinophils Absolute Basophils RBC Morphology Anisocytosis PT INR APTT ABG Sample Site Right radial ABG pH 7.45 ABG pCO2 36 ABG pO2 107 H ABG HCO3 25 ABG Total CO2 23 ABG O2 Saturation 99 H ABG Base Excess 1 VBG Lactate Oxygen Liter Flow Vt 410 peep 5 rr 15 FiO2 21 Sodium 150 H Potassium 3.5 Chloride 111 H Carbon Dioxide 24.2 Anion Gap 14.8 H BUN 25 H Creatinine 2.1 H Estimated GFR/1.73 m2 30.86 Glucose 129 H Calcium 8.1 L Magnesium 1.7 L Total Bilirubin 3.0 H Conjugated Bilirubin 1.6 H AST 32 ALT 26 Alkaline Phosphatase 113 Ammonia Troponin I < 0.05 < 0.05 Total Protein 6.2 L Albumin 2.3 L TSH Urine Color Urine Clarity Urine pH Ur Specific [place] Urine Protein Urine Ketones Urine Blood Urine Nitrite Urine Bilirubin Urine Urobilinogen Ur Leukocyte Esterase Urine RBC Urine WBC Ur Epithelial Cells Urine Crystals Urine Bacteria Urine Casts Urine Mucus Urine Other Ur Culture Indicated? Urine Glucose COVID-19 Source SARS-CoV-2 (PCR) 10/31/20 10/31/20 10/31/20 06:35 06:35 06:35 WBC 6.95 RBC 2.95 L Hgb 9.5 L Hct 27.9 L MCV 94.6 MCH 32.2 MCHC 34.1 RDW 16.4 H Plt Count 60 L MPV 8.9 Immature Gran % 0.3 Neutrophils % 72.1 Lymphocytes % 8.8 Monocytes % 9.8 Eosinophils % 7.6 Basophils % 1.4 Nucleated RBC % 0 Absolute Neutrophils 5.01 Absolute Lymphocytes 0.61 L Absolute Monocytes 0.68 Absolute Eosinophils 0.53 Absolute Basophils 0.10 RBC Morphology See below Anisocytosis 1+ PT 15.4 H INR 1.5 H APTT ABG Sample Site ABG pH ABG pCO2 ABG pO2 ABG HCO3 ABG Total CO2 ABG O2 Saturation ABG Base Excess VBG Lactate Oxygen Liter Flow FiO2 Sodium Potassium Chloride Carbon Dioxide Anion Gap BUN Creatinine Estimated GFR/1.73 m2 Glucose Calcium Magnesium Total Bilirubin Conjugated Bilirubin AST ALT Alkaline Phosphatase Ammonia 75 H Troponin I Total Protein Albumin TSH Urine Color Urine Clarity Urine pH Ur Specific G[place] Urine Protein Urine Ketones Urine Blood Urine Nitrite Urine Bilirubin Urine Urobilinogen Ur Leukocyte Esterase Urine RBC Urine WBC Ur Epithelial Cells Urine Crystals Urine Bacteria Urine Casts Urine Mucus Urine Other Ur Culture Indicated? Urine Glucose COVID-19 Source SARS-CoV-2 (PCR) 10/31/20 10/31/20 07:45 07:45 WBC RBC Hgb Hct MCV MCH MCHC RDW Plt Count MPV Immature Gran % Neutrophils % Lymphocytes % Monocytes % Eosinophils % Basophils % Nucleated RBC % Absolute Neutrophils Absolute Lymphocytes Absolute Monocytes Absolute Eosinophils Absolute Basophils RBC Morphology Anisocytosis PT INR APTT ABG Sample Site Right radial ABG pH 7.46 H ABG pCO2 34 L ABG pO2 86 ABG HCO3 24 ABG Total CO2 22 L ABG O2 Saturation 98 ABG Base Excess 0 VBG Lactate 1.5 H Oxygen Liter Flow Vt 410 rr 12 peep 5 FiO2 21 Sodium Potassium Chloride Carbon Dioxide Anion Gap BUN Creatinine Estimated GFR/1.73 m2 Glucose Calcium Magnesium Total Bilirubin Conjugated Bilirubin AST ALT Alkaline Phosphatase Ammonia Troponin I Total Protein Albumin TSH Urine Color Urine Clarity Urine pH Ur Specific G[place] Urine Protein Urine Ketones Urine Blood Urine Nitrite Urine Bilirubin Urine Urobilinogen Ur Leukocyte Esterase Urine RBC Urine WBC Ur Epithelial Cells Urine Crystals Urine Bacteria Urine Casts Urine Mucus Urine Other Ur Culture Indicated? Urine Glucose COVID-19 Source SARS-CoV-2 (PCR)
--- NOTE | 2020-10-31 08:30 | DI.RAD_ITS ---
EXAM: XR PORTABLE CHEST AP CLINICAL HISTORY: F/u intubated patient. TECHNIQUE: 2D digital imaging was performed. COMPARISON: CR,XR XR PORTABLE CHEST AP POST LINE from 10/30/2020 FINDINGS: ET tube is in good position. NG tube is in the stomach. Distal tip of the ND tube is beyond the fie ld of view of this portable chest x-ray. Cardiomegaly again noted. The mediastinum is not widened Bandlike atelectasis noted in the right lung above the minor fissure, slightly improved from previous . There also appears to be some infiltrate in the left lower lobe retrocardiac region-posterior basa l segment of the left lower lobe. No pleural effusions. IMPRESSION: Left lower lobe infiltrate. Platelike atelectasis mid right lung zone. No pleural effusions. Multi ple healed right-sided rib fractures are noted as is advanced degenerative change in the right should er glenohumeral joint. DATA REPOSITORY: RADIATION DOSE DELIVERED: All CT scans at this facility use at least one of these dose optimization techniques: automated exposure control; mA and/or kV adjustment per patient size (includes targeted e xams where dose is matched to clinical indication); or iterative reconstruction.
[2020-10-31] MEDS: SODIUM CHLORIDE 0.45% 1,000 ML 75 ML IV (08:55)
[2020-10-31] MEDS: MAGNESIUM SULFATE 2 GM/50 ML BAG IVPB (08:56)
[2020-10-31] MEDS: Normal Saline Flush 10 ML SYR IVP ×5 (09:29→21:34)
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
[2020-10-31] MEDS: VANCOMYCIN/WATER (PEG) 1 GM/200 ML BAG IV (10:12)
[2020-10-31 12:32] LABS: Sodium 144 mmol/L (136-145)
[2020-10-31] MEDS: Lactulose 20 GM/30 ML CUP 30 GM NG ×2 (13:05→15:58)
[2020-10-31] MEDS: Pantoprazole 40 MG VIAL IVP ×2 (13:07→21:09)
--- NOTE | 2020-10-31 14:05 | PHA.REVIEW ---
Pharmacy Admission Review - Admission Clinical Review (Last Updated 10/30/20 @ 14:35 by Gracia Glass MD) Discharge planning issues (Acute) DVT prophylaxis (Acute) Respiratory failure requiring intubation (Acute) Encephalopathy, hepatic (Acute) Endotracheally intubated (Acute) Obtunded (Acute) Pneumonia (Acute) adhesive tape Allergy (Unverified 10/30/20 08:53) Height 5 ft 10 in Weight 91.3 kg - Renal Dosing Renal Dosing: BUN 25 mg/dL (7-18) H 10/31/20 06:35 Creatinine 2.1 mg/dL (0.70-1.30) H 10/31/20 06:35 Medications needing adjustments: Reviewed (Crcl ~30 mL/min current med okay) - Anticoagulation Anticoagulation: Hgb 9.5 g/dL (13.5-17.5) L 10/31/20 06:35 Hct 27.9 % (40.0-50.0) L 10/31/20 06:35 Plt Count 60 10^3/uL (130-400) L 10/31/20 06:35 INR 1.5 (0.9-1.1) H 10/31/20 06:35 Creatinine 2.1 mg/dL (0.70-1.30) H 10/31/20 06:35 DVT Prohphylaxis: Reviewed (being held due to thrombocytopenia and coagulopathy) - Opiate Usage Evaluate Pain Scale/Pains Meds: N/A - Relevant Labs Sodium 144 mmol/L (136-145) 10/31/20 12:15 Potassium 3.5 mmol/L (3.5-5.1) 10/31/20 06:35 Chloride 111 mmol/L (98-107) H 10/31/20 06:35 Magnesium 1.7 mg/dL (1.8-2.4) L 10/31/20 06:35 Electrolytes, C-Reactive P, ESR: Reviewed (IV mag replacement given) - DM Control DM Control: Glucose 129 mg/dL (74-106) H 10/31/20 06:35 Finger Stick Blood Glucose 129 Finger Stick Blood Glucose 129 Finger Stick Blood Glucose 129 Insulin Dosing: Reviewed (Scheduled lantus and sliding scale aspart ordered.) - Heart Failure/WI Heart Failure/WI: Troponin I < 0.05 ng/mL (<0.06) 10/31/20 06:35 EF%, MARY's, B-Blockers, Diuretics: Reviewed - BP Control BP Control: Blood Pressure [Post Trial] 129/66 Blood Pressure 102/65 Blood Pressure 110/59 Blood Pressure 111/52 Blood Pressure 111/52 Blood Pressure 112/67 Blood Pressure 122/65 Blood Pressure 129/66 Blood Pressure 128/61 If elevated: Reviewed (BP has been low to normal most of admission so far.) - Qtc Review If Elevated: Reviewed (QTc 493 on admission, pt is on propofol and venlafaxine and is being monitored on tele) - IV to PO Switch IV Medications: Reviewed - Home Meds Home Med List reviewed: Reviewed (Venlafaxine may enhance the antiplatelet effect of heparin.) Relevent Home Meds Not ordered & why?: calcium carbonate (PRN), carboxymethylcellulose (PRN), glucagon (PRN), heparin (thrombocytopenia/coagulopathy), omeprazole (has pantoprazole ordered), ondansetron (avoid due to other QT prolonging meds), rifaximin, sodium phosphates (PRN), sprionolactone (BP low/normal), torsemide (BP low/normal) - Current meds Current Medication Order Review: Reviewed - Comments Comments/Follow Ups: Watch BP, SCr, plt, H/H, mag, BG, and for med changes (avoid QT prolonging meds, possible renal dose adjustments). Antibiotic Activity - Pharmacy Antibiotic Review Pharmacy Antibiotic Activity: Reviewed, no change (Vanco and zosyn continue (day 2). Blood cultures no growth @24 hours, sputum culture pending.)
[2020-10-31] MEDS: Rifaximin 550 MG TAB PO (15:57)
--- NOTE | 2020-10-31 16:20 | CHAPLAIN ---
Maldonado is intubated at this time and so sedated. According to his nurse, Maldonado's son would like to visit, but received his second COVID shot only 7 days ago. Maldonado also has a daughter, and a significant other who uses a wheel chair. Bright is a [place] . I spoke to Maldonado and brought him up a red, white and blue prayer shawl.
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
[2020-10-31] MEDS: PROPOFOL 1,000 MG/100 ML BTL 17.784 MG IVPB ×2 (17:46→22:11)
[2020-10-31] MEDS: Furosemide 20 MG/2 ML VIAL IVP (17:47)
[2020-10-31] MEDS: Sucralfate 1 GM TAB NG (17:49)
[2020-10-31] MEDS: Normal Saline 250 ML 999 ML IV (20:45)
[2020-10-31] MEDS: Insulin Glargine 300 UNITS/3 ML PEN 15 UNITS SC (21:34)
[2020-10-31] MEDS: Normal Saline 1,000 ML 100 ML IV (22:21)
[2020-10-31 22:22] LABS: HGB 9.3 g/dL (13.5-17.5)
[2020-11-01] VITALS (113 sets, daily range): BP systolic 75–146; BP diastolic 40–88; PULSE 45–138; RESP 1–21; TEMP 35.8–36.9; O2SAT 98–100
[2020-11-01] MEDS: Lactulose 20 GM/30 ML CUP 30 GM NG ×2 (01:17→05:20)
[2020-11-01] MEDS: PIPERACILLIN/TAZO 3.375 GM in Normal Saline 50 ML IVPB ×4 (01:18→18:08)
[2020-11-01] MEDS: Albuterol/Ipratropium 3 ML UPD VIAL UPD ×3 (01:20→19:05)
[2020-11-01] MEDS: Sucralfate 1 GM TAB NG ×4 (01:20→18:05)
[2020-11-01] MEDS: PROPOFOL 1,000 MG/100 ML BTL 17.784 MG IVPB (03:56)
[2020-11-01] MEDS: VANCOMYCIN/WATER (PEG) 1 GM/200 ML BAG IV (05:49)
[2020-11-01] MEDS: Insulin Aspart 300 UNITS/3 ML PEN SC (06:15)
[2020-11-01 06:42] LABS: Abs Immature Grans 0.02 10^3/uL (0.0-0.06); Absolute Basophil Count 0.11 10^3/uL (0.0-0.2); Absolute Eosinophil Count 0.45 10^3/uL (0.0-0.7); Absolute Lymphocyte Count 1.02 10^3/uL (1.2-3.4); Absolute Monocyte Count 0.85 10^3/uL (0.1-0.8); Absolute Neutrophil Count 4.48 10^3/uL (1.2-6.7); Basophils % 1.6; Eosinophils % 6.5; HCT 27.7 % (40.0-50.0); Immature Grans % 0.3; Lymphocytes % 14.7; MCH 31.6 pg (27.0-33.0); MCHC 32.5 % (32.0-36.0); MCV 97.2 fL (80-95); MPV 9.4 fL (8.0-11.0); Monocytes % 12.3; Neutrophils % 64.6; Nucleated RBC 0 %; RBC 2.85 10^6/uL (4.36-5.78); RDW 16.4 % (11.8-14.1); RDW-SD 58.7 fL; WBC 6.93 10^3/uL (4.4-10.8)
[2020-11-01 06:51] LABS: Ammonia 58 umol/L (11-32)
[2020-11-01 06:52] LABS: ALT 22 U/L (16-63); AST 26 U/L (15-37); Albumin 2.3 g/dL (3.4-5.0); Alkaline Phosphatase 113 U/L (46-116); Anion Gap 11.1 mmol/L (3-11); BUN 30 mg/dL (7-18); Bilirubin, Direct 2.3 mg/dL (0.0-0.2); Bilirubin, Total 3.7 mg/dL (0.2-1.0); CO2 22.9 mmol/L (21.0-32.0); CREATININE 2.7 mg/dL (0.70-1.30); Calcium 8.2 mg/dL (8.5-10.1); Chloride 113 mmol/L (98-107); Estimated GFR 23.09 (mL/min/1.73m2); Glucose 169 mg/dL (74-106); Potassium 3.4 mmol/L (3.5-5.1); Sodium 147 mmol/L (136-145)
[2020-11-01 07:05] LABS: Diff Comment Agrees w/ Instrument; Platelet Count 56 10^3/uL (130-400); RBC Morphology Normal
[2020-11-01] MEDS: Lacri-Lube 3.5 GM TUBE OU ×2 (07:52→21:31)
[2020-11-01] MEDS: Propranolol 20 MG TAB NG (07:52)
[2020-11-01] MEDS: Venlafaxine 75 MG TAB NG ×2 (07:52→21:33)
--- NOTE | 2020-11-01 08:30 | DI.RAD_ITS ---
EXAM: XR PORTABLE CHEST AP CLINICAL HISTORY: F/u intubated patient TECHNIQUE: 2D digital imaging was performed. COMPARISON: CR XR PORTABLE CHEST AP from 10/31/2020 FINDINGS: MEDIASTINUM: Normal. HEART: Normal. PULMONARY VASCULATURE: Normal. LUNGS: The right lung appears clear. There is a left retrocardiac infiltrate present. PLEURAL SPACE: No pleural effusion or pneumothorax. BONE:Degenerative changes are seen in the shoulders, right greater than left. OTHER FINDINGS:The endotracheal tube is at the level of the thoracic inlet well above the kelly in g ood position. The nasogastric tube passes into the stomach. The tip is beyond the [id number] of the x-ray. IMPRESSION: 1. Endotracheal and nasogastric tubes are in good position. 2. Left retrocardiac infiltrate. DATA REPOSITORY: RADIATION DOSE DELIVERED:
[2020-11-01 08:44] LABS: BE -3 mmol/L (-2-3); HCO3 22 mmol/L (22-26); pCO2 33 mmHg (35-45); pH 7.43 (7.35-7.45); pO2 98 mmHg (80-105); sO2 99 % (95-98); tCO2 20 mmol/L (23-27)
[2020-11-01 08:47] LABS: FIO2 21 %; Site Right Radial
--- NOTE | 2020-11-01 09:16 | W.PM.PROGNOT ---
Date of Service Date of service: 11/01/20 Time of Service: 09:20 Assessment and Plan Assessment and plan (1) Respiratory failure requiring intubation: Status: Acute Assessment and plan: Respiratory failure d/t pneumonia and encephalopathy cont. nebulizers, Vanco/Zosyn and treatment of hepatic encephalopathy (Rifaximin and lactulose) (2) HCAP (healthcare-associated pneumonia): Status: Acute Assessment and plan: LLL posterior basal infiltrate and RML atelectasis; cont. current ATB as above. cont. supportive care w/ bronchodilators/ventilator (3) Ascites due to alcoholic cirrhosis: Status: Chronic Assessment and plan: my colleague raised concerns for spontaneous bacterial peritonitis; however, no fever nor leukocytosis; no paracentesis was done this admission but apparently he had prior paracentesis as evidenced by LLQ pinpoint wound; not currently draining any ascitic fluid from the wound. Nevertheless, he is covered w/ Zosyn given along w/ Vancomycin for his pneumonia (HCAP vs aspiration) (4) IDDM (insulin dependent diabetes mellitus): Status: Chronic Assessment and plan: No change to insulin regimen. Continue low dose long acting insulin + SSI; BG in the 180's this a.m. but was down to 126 at 1 a.m. I will reduce his basal dose to 10 units; cont. sliding scale novolog but reduce to insulin sensitive scale until he is extubated and able to eat. (5) Coagulopathy: Status: Chronic Assessment and plan: In setting of liver disease. Monitor for bleeding. Avoid anticoagulation. (6) End stage liver disease: Status: Chronic Assessment and plan: With known encephalopathy, portal hypertension, thrombocytopenia, coagulopathy. Will monitor for bleeding. Await palliative care consult. Palliative care consult best obtained after he is extubated and able to communicate (7) Afib: Status: Chronic Assessment and plan: chronic afib; rate well controlled in the 70's to 80's; highest of 100 bpm. Currently on propranolol but not a candidate for anticoagulation. cont. to monitor. Qualifiers: Atrial fibrillation type: longstanding persistent Qualified Code(s): I48.11 - Longstanding persistent atrial fibrillation (8) Encephalopathy, hepatic: Status: Acute Assessment and plan: unclear as to what precipitated current hepatic encephalopathy whether non-compliance w/ meds vs infection (pneumonia/SBP); now having copious stools. cont. Rifaximin and lactulose (w/ holding parameters for >3 soft or liquid stools/day). (9) Palliative care patient: Status: Acute Assessment and plan: Intubation and sedation being handled by the Hospitalist. I spoke with Marycruz at [phone]. Ama wasn't able to talk. He said he didn't want his dad to suffer. He was aware his dad was dying and that his many diseases were worsening I called back and spoke to Ama Mar, his SO of 33 years. She explained that he does this: gets worse and then better, but admits he is worsening and she is aware that he may not improve. She stated that he was so bad at home that she had to carry him on her lap (she is in a wheelchair) to help him get to the bathroom. She knows he is spiralling down. She wants him to be a Full COde for another day to see if he can come out of it. She was also interested to learn about comfort care: keeping him comfortable and easing his problems, knowing that he may . She and Marycruz were happy to hear they may be able to visit if he was on comfort care. In the end, Ama said a full code for today and if his condition worsens or cannot be extubated, she may consider alternatives. She wishes to be kept informed. She knows he is dying. Subjective Subjective Interval history since last seen: Paatient remains intubated although his vent setting have been weaned down to FIO2 21% and PSP 5 cm/PEEP 5 cm. He remains encephalopathic, not following commands although w/ cessation of the propofol drip he is now more responsive to tactile and verbal stimulation (i.e. opening his eyes to his name or touch but not tracking and not following commands). Patient was intubated d/t hepatic encephalopathy and unable to protect his airway, not d/t intrinsic lung disease. He may or may not have aspirated. However, he has been afebrile and no leukocytosis. CXR read as demonstrating band like atelectasis at right lung mid fissure and left lower lobe retrocardiac infiltrate. Per nursing, minimal secretions being suctioned from his ET. Yesterday sputum was gomez then yellow and became clear. None this morning. He is being covered w/ antibiotics including Vancomycin and Zosyn. Vancomycin was added by my colleague to cover for HCAP as [facility]. This morning we will try to keep him off the propofol drip and when he is more alert and following commands he should be able to be extubated. His ABG taken on his current settings looks favorable (no hypercarbia, normal pH and good pO2). Exam Narrative Exam Narrative: Elderly white jaundiced male intubated, attempts to open his eyes when his name is called or when stimulated but not tracking w/ his eyes and not following commands HEENT: dry mucous membranes, no oral bleeding, poor dentition Neck w/ out JVD; soft, supple, no thyromegaly, no LAD Lungs: clear breath sounds, diminished at bases, no rhonchi or wheezes Abdomen: distended, +fluid wave, midline scar from prior laparotomy, LLQ w/ pinpoint site from paracentesis, has bag over the wound; normal femoral pulses; Extremities: poor pedal pulses, normal popliteal pulses; bilateral skin ulcers over pretibia; no purulent discharge; hypertrophic nails, multiple bruises over arms and legs Neuro: moves all 4's to stimulation; not following commands Objective Last Vital Signs Temp 36.3 C L 11/01/20 06:00 Pulse 64 11/01/20 07:01 Resp 20 11/01/20 07:01 BP 94/54 L 11/01/20 07:01 Pulse Ox 99 11/01/20 07:01 Laboratory Results - last 24 hr 10/31/20 10/31/20 11/01/20 12:15 22:17 06:30 WBC RBC Hgb 9.3 L Hct 28.0 L MCV MCH MCHC RDW Plt Count MPV Immature Gran % Neutrophils % Lymphocytes % Monocytes % Eosinophils % Basophils % Nucleated RBC % Absolute Neutrophils Absolute Lymphocytes Absolute Monocytes Absolute Eosinophils Absolute Basophils RBC Morphology ABG Sample Site ABG pH ABG pCO2 ABG pO2 ABG HCO3 ABG Total CO2 ABG O2 Saturation ABG Base Excess Oxygen Liter Flow FiO2 Sodium 144 147 H Potassium 3.4 L Chloride 113 H Carbon Dioxide 22.9 Anion Gap 11.1 H BUN 30 H Creatinine 2.7 H Estimated GFR/1.73 m2 23.09 Glucose 169 H Calcium 8.2 L Magnesium 2.0 Total Bilirubin 3.7 H Conjugated Bilirubin 2.3 H AST 26 ALT 22 Alkaline Phosphatase 113 Ammonia Total Protein 6.0 L Albumin 2.3 L 11/01/20 11/01/20 11/01/20 06:30 06:30 08:42 WBC 6.93 RBC 2.85 L Hgb 9.0 L Hct 27.7 L MCV 97.2 H MCH 31.6 MCHC 32.5 RDW 16.4 H Plt Count 56 L MPV 9.4 Immature Gran % 0.3 Neutrophils % 64.6 Lymphocytes % 14.7 Monocytes % 12.3 Eosinophils % 6.5 Basophils % 1.6 Nucleated RBC % 0 Absolute Neutrophils 4.48 Absolute Lymphocytes 1.02 L Absolute Monocytes 0.85 H Absolute Eosinophils 0.45 Absolute Basophils 0.11 RBC Morphology Normal ABG Sample Site Right radial ABG pH 7.43 ABG pCO2 33 L ABG pO2 98 ABG HCO3 22 ABG Total CO2 20 L ABG O2 Saturation 99 H ABG Base Excess -3 L Oxygen Liter Flow Ps 5/5 FiO2 21 Sodium Potassium Chloride Carbon Dioxide Anion Gap BUN Creatinine Estimated GFR/1.73 m2 Glucose Calcium Magnesium Total Bilirubin Conjugated Bilirubin AST ALT Alkaline Phosphatase Ammonia 58 H Total Protein Albumin Reviewed Pertinent PMH: Yes Objective Narrative Objective Narrative: CXR's reviewed from today and compared to his other CXR's since admission.
[2020-11-01] MEDS: Rifaximin 550 MG TAB PO ×2 (10:00→21:33)
[2020-11-01] MEDS: Acetaminophen Solution 650 MG/20.3 ML CUP NG ×2 (10:02→22:47)
[2020-11-01] MEDS: Normal Saline Flush 10 ML SYR IVP ×2 (10:03→21:29)
[2020-11-01] MEDS: Pantoprazole 40 MG VIAL IVP ×2 (10:04→21:30)
--- NOTE | 2020-11-01 10:08 | PDOC.CMPRO ---
- If Service Date Differs Date of service: 11/01/20 Time of Service: 10:08 Care Management Progress Note S/O:Maldonado was seen intubated in the ICU by CM where he is being closely monitored. Per provider, he is unable to be weaned at this time. This afternoon Maldonado was placed on pressors as his blood pressure dropped into the 70's and 80' systolic. Maldonado's H&H have also dropped and a unit of blood was ordered. CM had several conversations with Maldonado Joel's son today. Marycruz has stated that the family wishes to continue with aggressive treatment for the next day or two, but that if Maldonado does not respond, they may consider comfort care or hospice. If that decision is made, he requested that CM help coordinate a transfer to [facility] in [place] as Marycruz's daughter works there. The family has been told by both CM and the providers, that if Maldonado is made comfort care, that unvaccinated family members (2 support people) will be allowed to visit here as well. A:Maldonado is a 74 year old man admitted to [facility] on 10/30/20 with acute respiratory failure P:Maldonado's disposition is not clear at this time. He may return to [facility] when medically cleared. If so, he will follow up with the facility provider and plan of care and transport via facility w/c van. CM will continue to support the patient, family and discharge planning needs.
[2020-11-01] MEDS: dexmedeTOMidine IN 0.9 % NACL 400 MCG/100 ML BTL IVPB (11:07)
--- NOTE | 2020-11-01 12:23 | W.PM.PROGNOT ---
Date of Service Date of service: 11/01/20 Time of Service: 12:23 Assessment and Plan Assessment and plan (1) HCAP (healthcare-associated pneumonia): Status: Acute (2) Ascites due to alcoholic cirrhosis: Status: Chronic (3) End stage liver disease: Status: Chronic (4) Encephalopathy, hepatic: Status: Acute (5) Palliative care patient: Status: Acute Assessment and plan: I spoke with son, Marycruz at [phone]. He had not spoken with Pat regarding today's plan. He wanted me to disuss this with Pat again. He reiterated that he does not want his dad to be in pain and suffer. e also said that if the family chose the comfort care route they would want him to be transferred to [facility] so family could visit. He also spoke of bringing him home on hospice. Attempted to call Pat - no answer. Will call again in a few minutes. Spoke with PAt at [phone]. We discussed aspiration, protecting airways, etc. She sees that he is in a downward spiral. FAmily is talking about next steps. They also are discussing whether to re intubate him if he is extubated and then becomes hypoxic. Will discuss again tomorrow Went to see Maldonado mann - now on pressors due to low BP Subjective Subjective Interval history since last seen: Still unable to be extubated due to aspiration risk. Does not appear agitated or in pain per Dr Carter. Had a difficult afternoon and is now on pressors Exam Narrative Exam Narrative: Intubated, unresponsive to painful stimuli, heart - harsh SM, good aeration on vent, feet bluish Objective Last Vital Signs Temp 97.3 F L 11/01/20 06:00 Pulse 59 L 11/01/20 10:01 Resp 14 11/01/20 10:50 BP 117/60 11/01/20 10:50 Pulse Ox 99 11/01/20 10:50 Laboratory Results - last 24 hr 10/31/20 10/31/20 11/01/20 12:15 22:17 06:30 WBC RBC Hgb 9.3 L Hct 28.0 L MCV MCH MCHC RDW Plt Count MPV Immature Gran % Neutrophils % Lymphocytes % Monocytes % Eosinophils % Basophils % Nucleated RBC % Absolute Neutrophils Absolute Lymphocytes Absolute Monocytes Absolute Eosinophils Absolute Basophils RBC Morphology ABG Sample Site ABG pH ABG pCO2 ABG pO2 ABG HCO3 ABG Total CO2 ABG O2 Saturation ABG Base Excess Oxygen Liter Flow FiO2 Sodium 144 147 H Potassium 3.4 L Chloride 113 H Carbon Dioxide 22.9 Anion Gap 11.1 H BUN 30 H Creatinine 2.7 H Estimated GFR/1.73 m2 23.09 Glucose 169 H Calcium 8.2 L Magnesium 2.0 Total Bilirubin 3.7 H Conjugated Bilirubin 2.3 H AST 26 ALT 22 Alkaline Phosphatase 113 Ammonia Total Protein 6.0 L Albumin 2.3 L 11/01/20 11/01/20 11/01/20 06:30 06:30 08:42 WBC 6.93 RBC 2.85 L Hgb 9.0 L Hct 27.7 L MCV 97.2 H MCH 31.6 MCHC 32.5 RDW 16.4 H Plt Count 56 L MPV 9.4 Immature Gran % 0.3 Neutrophils % 64.6 Lymphocytes % 14.7 Monocytes % 12.3 Eosinophils % 6.5 Basophils % 1.6 Nucleated RBC % 0 Absolute Neutrophils 4.48 Absolute Lymphocytes 1.02 L Absolute Monocytes 0.85 H Absolute Eosinophils 0.45 Absolute Basophils 0.11 RBC Morphology Normal ABG Sample Site Right radial ABG pH 7.43 ABG pCO2 33 L ABG pO2 98 ABG HCO3 22 ABG Total CO2 20 L ABG O2 Saturation 99 H ABG Base Excess -3 L Oxygen Liter Flow Ps 5/5 FiO2 21 Sodium Potassium Chloride Carbon Dioxide Anion Gap BUN Creatinine Estimated GFR/1.73 m2 Glucose Calcium Magnesium Total Bilirubin Conjugated Bilirubin AST ALT Alkaline Phosphatase Ammonia 58 H Total Protein Albumin
[2020-11-01] MEDS: Normal Saline 500 ML 1000 ML IV ×2 (13:10→14:19)
[2020-11-01] MEDS: POTASSIUM CHLORIDE/0.45% NACL 1,000 ML 150 MEQ IV (14:02)
[2020-11-01 15:22] LABS: HCT 23.5 % (40.0-50.0); HGB 7.7 g/dL (13.5-17.5)
--- NOTE | 2020-11-01 17:13 | CHAPLAIN ---
I spent some time in Maldonado's room today while nurses were providing care. He's had a palliative consult and his son and SO have been asked questions about how Maldonado would want his care directed. He remains intubated at this time. There is not an AD in our system or in the [facility] system, where Maldonado also received care.
[2020-11-01] MEDS: PHYTONADIONE 10 MG in Normal Saline 50 ML 200 MG IVPB (17:57)
[2020-11-01] MEDS: POTASSIUM CHLORIDE/0.45% NACL 1,000 ML 75 MEQ IV (21:36)
[2020-11-01] MEDS: Insulin Glargine 300 UNITS/3 ML PEN 10 UNITS SC (21:41)
[2020-11-02] VITALS (107 sets, daily range): BP systolic 93–141; BP diastolic 43–78; PULSE 47–92; RESP 1–28; TEMP 35.6–36.3; O2SAT 98–100
[2020-11-02] MEDS: dexmedeTOMidine IN 0.9 % NACL 400 MCG/100 ML BTL 11.413 MCG IVPB (00:39)
[2020-11-02] MEDS: PIPERACILLIN/TAZO 3.375 GM in Normal Saline 50 ML IVPB ×4 (00:40→23:57)
[2020-11-02] MEDS: Sucralfate 1 GM TAB NG ×2 (00:40→06:22)
[2020-11-02] MEDS: Normal Saline Flush 10 ML SYR IVP ×3 (00:40→20:43)
[2020-11-02] MEDS: Insulin Aspart 300 UNITS/3 ML PEN SC ×2 (01:07→06:21)
[2020-11-02] MEDS: VANCOMYCIN/WATER (PEG) 1 GM/200 ML BAG IV ×2 (02:10→21:05)
[2020-11-02 03:30] LABS: Bilirubin Negative (Negative); Blood Large (Negative); Clarity Sl Cloudy (Clear); Glucose Negative (Negative); Ketones Negative (Negative); Leukocyte Esterase Negative (Negative); Nitrite Negative (Negative); Urobilinogen 0.2 EU/dL (Up TO 0.2)
[2020-11-02 03:45] LABS: RBC >50 HPF (0-2)
[2020-11-02 03:46] LABS: C & S Indicated? Yes
[2020-11-02 06:33] LABS: Abs Immature Grans 0.02 10^3/uL (0.0-0.06); Absolute Basophil Count 0.08 10^3/uL (0.0-0.2); Absolute Eosinophil Count 0.56 10^3/uL (0.0-0.7); Absolute Lymphocyte Count 0.86 10^3/uL (1.2-3.4); Absolute Monocyte Count 0.59 10^3/uL (0.1-0.8); Absolute Neutrophil Count 3.54 10^3/uL (1.2-6.7); Basophils % 1.4; Eosinophils % 9.9; HCT 29.8 % (40.0-50.0); HGB 9.9 g/dL (13.5-17.5); Immature Grans % 0.4; Lymphocytes % 15.2; MCH 31.6 pg (27.0-33.0); MCHC 33.2 % (32.0-36.0); MCV 95.2 fL (80-95); MPV 8.9 fL (8.0-11.0); Monocytes % 10.4; Neutrophils % 62.7; Nucleated RBC 0 %; RBC 3.13 10^6/uL (4.36-5.78); RDW 16.7 % (11.8-14.1); RDW-SD 58.1 fL; WBC 5.65 10^3/uL (4.4-10.8)
[2020-11-02 06:39] LABS: Ammonia 29 umol/L (11-32)
[2020-11-02 06:45] LABS: ALT 21 U/L (16-63); AST 46 U/L (15-37); Albumin 2.1 g/dL (3.4-5.0); Alkaline Phosphatase 98 U/L (46-116); Anion Gap 13.6 mmol/L (3-11); BUN 31 mg/dL (7-18); Bilirubin, Total 4.7 mg/dL (0.2-1.0); CO2 18.4 mmol/L (21.0-32.0); CREATININE 2.3 mg/dL (0.70-1.30); Calcium 7.3 mg/dL (8.5-10.1); Chloride 112 mmol/L (98-107); Estimated GFR 27.78 (mL/min/1.73m2); Glucose 147 mg/dL (74-106); Potassium 5.2 mmol/L (3.5-5.1); Sodium 144 mmol/L (136-145); Total Protein 6.1 g/dL (6.4-8.2)
[2020-11-02] MEDS: Albuterol/Ipratropium 3 ML UPD VIAL UPD ×4 (07:20→23:57)
[2020-11-02 07:21] LABS: Anisocytosis 1+; Diff Comment Diff Reviewed; Platelet Count 45 10^3/uL (130-400)
--- NOTE | 2020-11-02 08:30 | DI.RAD_ITS ---
EXAM: XR PORTABLE CHEST AP CLINICAL HISTORY: F/u intubated patient. TECHNIQUE: 2D digital imaging was performed. COMPARISON: Prior chest x-rays last 2 days and 11/02/2019 FINDINGS: Patient remains intubated. The endotracheal tube distal tip remains in satisfactory position above t he kelly. NG tube is again noted in the stomach. Heart size unchanged in the mediastinum is not widened. There is some persistent infiltrate in the l eft lower lobe. No obvious pleural effusions. No pneumothorax. Advanced degenerative changes in th e right shoulder again noted. IMPRESSION: Persistent left lower lobe infiltrate. No obvious pleural effusions. ET tube remains in satisfactor y position DATA REPOSITORY: RADIATION DOSE DELIVERED: All CT scans at this facility use at least one of these dose optimization techniques: automated exposure control; mA and/or kV adjustment per patient size (includes targeted e xams where dose is matched to clinical indication); or iterative reconstruction.
[2020-11-02] MEDS: POTASSIUM CHLORIDE/0.45% NACL 1,000 ML 150 MEQ IV (08:40)
[2020-11-02] MEDS: SODIUM CHLORIDE 0.45% 1,000 ML 85 ML IV ×2 (09:02→20:44)
[2020-11-02] MEDS: Pantoprazole 40 MG VIAL IVP ×2 (09:04→20:43)
--- NOTE | 2020-11-02 09:13 | W.PALPGNOTE ---
Date of service: 11/02/20 Time of Service: 06:13 Assessment and Plan Assessment and plan (1) Coagulopathy: Status: Chronic (2) End stage liver disease: Status: Chronic (3) Encephalopathy, hepatic: Status: Acute (4) Palliative care patient: Status: Acute Assessment and plan: Reacting appropriately to suction. Will check in w nursing in a few hours and then I will contact the family Addendum This morning Maldonado was extubated. I called up Melisa in the ICU and she stated that his vitals were stable, he was breathing on his own, he was responding but was uncertain where he was and why he was in the hospital. He did have a granddaughter come and visit him. They had a good conversation and laughed. I called Marycruz at [phone] and asked him about the family's thoughts if this should recur. He and Ama had spoken the night before and Ama had left the decision often with him. Marycruz had stated that he did not want his dad to be coded again. Ama is #1 on his DPOA. I called back later so that I could speak to Ama directly. Marycruz was told by the granddaughter that he could still have the tube in his throat and that was not considered coding. The granddaughter also said that he could go to the penitentiary intubated. I explained to Marycruz and Ama that he could not go to a penitentiary or at least not an average penitentiary intubated. And also the intubation meaning putting the tube down his throat and hooking him up to a machine to help him to breathe was part of what we call coding a patient. Ama was very firm that she did not want this to happen again. She felt that he is gone through enough and that his multiple comorbidities are escalating. He has been through 3 hospitalizations in 2 nursing homes with very few days at home in the last several weeks. She clearly stated that she does not want him resuscitated she does not want him intubated In keeping with the family's wishes, I did contact care management again and said that they would like him at [facility]. Vinita in care management is working on this The family also wanted to face time with the patient. Vinita and care management is going to facilitate this calling [phone]. I did discuss this with ICU staff and also hospitalist, Dr. Aki Carter Subjective Subjective Patient reports: no new complaints and bowel movement Interval history since last seen: Intubated. RT is there and lightening up on his sedation. He is coughing w/ suction Exam Const General: patient mechanically ventilated Nutritional Appearance: average body habitus Resp Auscultation: crackles on the left and diminished lung sounds Cardio Heart Sounds: murmur systolic GI Inspection: visible herniation Objective Last Vital Signs Temp 96.3 F L 11/02/20 06:00 Pulse 47 L 11/02/20 06:46 Resp 13 11/02/20 06:46 BP 112/53 L 11/02/20 06:46 Pulse Ox 99 11/02/20 06:46 Laboratory Results - last 24 hr 11/01/20 11/01/20 11/02/20 15:10 15:10 03:10 WBC RBC Hgb 7.7 L Hct 23.5 L MCV MCH MCHC RDW Plt Count MPV Immature Gran % Neutrophils % Lymphocytes % Monocytes % Eosinophils % Basophils % Nucleated RBC % Absolute Neutrophils Absolute Lymphocytes Absolute Monocytes Absolute Eosinophils Absolute Basophils RBC Morphology Anisocytosis Sodium Potassium Chloride Carbon Dioxide Anion Gap BUN Creatinine Estimated GFR/1.73 m2 Glucose Calcium Total Bilirubin AST ALT Alkaline Phosphatase Ammonia Total Protein Albumin Urine Color Yellow Urine Clarity Sl cloudy Urine pH 5.0 Ur Specific [place] 1.020 Urine Protein 30 H Urine Ketones Negative Urine Blood Large H Urine Nitrite Negative Urine Bilirubin Negative Urine Urobilinogen 0.2 Ur Leukocyte Esterase Negative Urine RBC >50 H Urine WBC Ur Epithelial Cells Not Applicable Urine Crystals Not Applicable Urine Bacteria Urine Mucus Not Applicable Ur Culture Indicated? Yes Urine Glucose Negative Patient ABO/Rh A Positive Antibody Screen Negative Crossmatch See Detail 11/02/20 11/02/20 11/02/20 06:15 06:15 06:15 WBC 5.65 RBC 3.13 L Hgb 9.9 L D Hct 29.8 L D MCV 95.2 H MCH 31.6 MCHC 33.2 RDW 16.7 H Plt Count 45 L MPV 8.9 Immature Gran % 0.4 Neutrophils % 62.7 Lymphocytes % 15.2 Monocytes % 10.4 Eosinophils % 9.9 Basophils % 1.4 Nucleated RBC % 0 Absolute Neutrophils 3.54 Absolute Lymphocytes 0.86 L Absolute Monocytes 0.59 Absolute Eosinophils 0.56 Absolute Basophils 0.08 RBC Morphology See below Anisocytosis 1+ Sodium 144 Potassium 5.2 H D Chloride 112 H Carbon Dioxide 18.4 L Anion Gap 13.6 H BUN 31 H Creatinine 2.3 H Estimated GFR/1.73 m2 27.78 Glucose 147 H Calcium 7.3 L Total Bilirubin 4.7 H AST 46 H ALT 21 Alkaline Phosphatase 98 Ammonia 29 Total Protein 6.1 L Albumin 2.1 L Urine Color Urine Clarity Urine pH Ur Specific [place] Urine Protein Urine Ketones Urine Blood Urine Nitrite Urine Bilirubin Urine Urobilinogen Ur Leukocyte Esterase Urine RBC Urine WBC Ur Epithelial Cells Urine Crystals Urine Bacteria Urine Mucus Ur Culture Indicated? Urine Glucose Patient ABO/Rh Antibody Screen Crossmatch
--- NOTE | 2020-11-02 09:13 | W.PM.PROGNOT ---
Date of Service Date of service: 11/02/20 Time of Service: 09:14 Assessment and Plan Assessment and plan (1) Respiratory failure requiring intubation: Status: Acute Assessment and plan: Respiratory failure d/t pneumonia and encephalopathy cont. nebulizers, Vanco/Zosyn and treatment of hepatic encephalopathy (Rifaximin and lactulose) however, he has done well w/ SBT for over an hour. I think that he can be extubated but will require aggressive pulmonary toiletry w/ continued nebulizer, IS, acapella; getting him out of bed to the chair multiple times a day and P.T. (2) HCAP (healthcare-associated pneumonia): Status: Acute Assessment and plan: LLL posterior basal infiltrate and RML atelectasis; cont. current ATB as above. cont. supportive care w/ bronchodilators/ventilator (3) Ascites due to alcoholic cirrhosis: Status: Chronic Assessment and plan: I do not think that he has SBP. Yesterday his low urine outputs required multiple fluid boluses and eventually he required blood transfusion for his anemia and was on low dose norepinephrine drip which has been reduced to minimal amount and will be dc'ed. I think between his anemia and the Precedex drip and his hypovolemia, this necessitated the NE drip. I will resume his scheduled lasix this afternoon but until he is taking PO he will need small amount of iv fluids. I will also give him some albumin as well. (4) IDDM (insulin dependent diabetes mellitus): Status: Chronic Assessment and plan: change BG monitoring to AC/HS and begin clear liquid diet this afternoon. I will ask for nutritional consult to evaluate and treat both his DM and liver failure. cont. basal/bolus insulin. BG have been acceptable between 120 to 180 mg/dL (5) End stage liver disease: Status: Chronic Assessment and plan: With known encephalopathy, portal hypertension, thrombocytopenia, coagulopathy. Will monitor for bleeding. Await palliative care consult. Palliative care consult best obtained after he is extubated and able to communicate (6) Afib: Status: Chronic Assessment and plan: chronic AF w/ rates well controlled. currently on propranolol. not candidate for anticoagulation d/t liver disease Qualifiers: Atrial fibrillation type: longstanding persistent Qualified Code(s): I48.11 - Longstanding persistent atrial fibrillation (7) Encephalopathy, hepatic: Status: Acute Assessment and plan: unclear as to what precipitated current hepatic encephalopathy whether non-compliance w/ meds vs infection (pneumonia/SBP); now having copious stools. cont. Rifaximin and lactulose (w/ holding parameters for >3 soft or liquid stools/day). (8) Discharge planning issues: Status: Acute (9) DVT prophylaxis: Status: Acute Subjective Subjective Interval history since last seen: Uneventful night. Patient taken off Precedex drip early this a.m. (around 7 a.m.). Patient put on SBT shortly thereafter and has been on FIO2 21% and PSV 5CM/PEEP 5 cm. No respiratory distress. Patient is more awake although still lethargic however he now opens eyes and he responds to verbal commands. He still has poor inspiratory efforts, however, I think that he is ready for extubation. Small secretions from his ET tube. Hopefully Palliative care can have a conversation w/ him today. Dr. Zazueta spoke w/ the family yesterday. See her addendum to my note yesterday. Patient remains on Vancomycin and Zosyn for HCAP. Exam Narrative Exam Narrative: General appearance jaundiced elderly white male who is intubated but opens his eyes when his name is called and when asked to take a deep breath he will respond appropriately. Seems to be following simple commands. Lungs with diminished breath sounds at the bases no rhonchi or rales or wheezes. Heart is irregularly irregular at a controlled rate Abdomen soft nondistended nontender normal bowel sounds Lower extremities without edema. Feet are cool with diminished pedal pulses. Pretibial skin wounds are bandaged. Objective Last Vital Signs Temp 35.7 C L 11/02/20 06:00 Pulse 47 L 11/02/20 06:46 Resp 13 11/02/20 06:46 BP 112/53 L 11/02/20 06:46 Pulse Ox 99 11/02/20 06:46 Laboratory Results - last 24 hr 11/01/20 11/01/20 11/02/20 15:10 15:10 03:10 WBC RBC Hgb 7.7 L Hct 23.5 L MCV MCH MCHC RDW Plt Count MPV Immature Gran % Neutrophils % Lymphocytes % Monocytes % Eosinophils % Basophils % Nucleated RBC % Absolute Neutrophils Absolute Lymphocytes Absolute Monocytes Absolute Eosinophils Absolute Basophils RBC Morphology Anisocytosis Sodium Potassium Chloride Carbon Dioxide Anion Gap BUN Creatinine Estimated GFR/1.73 m2 Glucose Calcium Total Bilirubin AST ALT Alkaline Phosphatase Ammonia Total Protein Albumin Urine Color Yellow Urine Clarity Sl cloudy Urine pH 5.0 Ur Specific [place] 1.020 Urine Protein 30 H Urine Ketones Negative Urine Blood Large H Urine Nitrite Negative Urine Bilirubin Negative Urine Urobilinogen 0.2 Ur Leukocyte Esterase Negative Urine RBC >50 H Urine WBC Ur Epithelial Cells Not Applicable Urine Crystals Not Applicable Urine Bacteria Urine Mucus Not Applicable Ur Culture Indicated? Yes Urine Glucose Negative Patient ABO/Rh A Positive Antibody Screen Negative Crossmatch See Detail 11/02/20 11/02/20 11/02/20 06:15 06:15 06:15 WBC 5.65 RBC 3.13 L Hgb 9.9 L D Hct 29.8 L D MCV 95.2 H MCH 31.6 MCHC 33.2 RDW 16.7 H Plt Count 45 L MPV 8.9 Immature Gran % 0.4 Neutrophils % 62.7 Lymphocytes % 15.2 Monocytes % 10.4 Eosinophils % 9.9 Basophils % 1.4 Nucleated RBC % 0 Absolute Neutrophils 3.54 Absolute Lymphocytes 0.86 L Absolute Monocytes 0.59 Absolute Eosinophils 0.56 Absolute Basophils 0.08 RBC Morphology See below Anisocytosis 1+ Sodium 144 Potassium 5.2 H D Chloride 112 H Carbon Dioxide 18.4 L Anion Gap 13.6 H BUN 31 H Creatinine 2.3 H Estimated GFR/1.73 m2 27.78 Glucose 147 H Calcium 7.3 L Total Bilirubin 4.7 H AST 46 H ALT 21 Alkaline Phosphatase 98 Ammonia 29 Total Protein 6.1 L Albumin 2.1 L Urine Color Urine Clarity Urine pH Ur Specific [place] Urine Protein Urine Ketones Urine Blood Urine Nitrite Urine Bilirubin Urine Urobilinogen Ur Leukocyte Esterase Urine RBC Urine WBC Ur Epithelial Cells Urine Crystals Urine Bacteria Urine Mucus Ur Culture Indicated? Urine Glucose Patient ABO/Rh Antibody Screen Crossmatch
[2020-11-02 09:53] LABS: BE -7 mmol/L (-2-3); HCO3 18 mmol/L (22-26); pCO2 34 mmHg (35-45); pH 7.34 (7.35-7.45); pO2 88 mmHg (80-105); sO2 98 % (95-98); tCO2 17 mmol/L (23-27)
[2020-11-02 09:54] LABS: FIO2 21 %; Site Left Radial
--- NOTE | 2020-11-02 12:07 | PDOC.CMPRO ---
- If Service Date Differs Date of service: 11/02/20 Time of Service: 12:07 Care Management Progress Note S/O:Maldonado was sitting up in bed when CM met with him. He was extubated this morning and so far is doing well. His vital signs are stable and his oxygen saturation levels are 99-100% on room air. Maldonado is oriented to person only. He answered questions when asked but was not able to state where he is, or the month or who the president is. Per Dr. Zazueta, Mraycruz, Maldonado's son, and Ama, his long time girlfriend, have indicated that they wish to change his code status to DNR/DNI. This afternoon, CM coordinated a Facetime session with Maldonado, Ama, Marycruz and Charo, his daughter. Maldonado recognized and named all of them and responded appropriately to the conversation. A:Maldonado is a 74 year old man admitted to [facility] on 10/30/20 with acute respiratory failure P:Maldonado's disposition is not clear at this time. The family has requested that a referral be sent to [facility] with the hope of having Maldonado transfer there when he is ready for discharge. If so, he will follow up with the facility provider and plan of care. CM will continue to support the patient, family and discharge planning needs.
[2020-11-02] MEDS: Lactulose 20 GM/30 ML CUP 30 GM PO ×2 (12:10→17:09)
[2020-11-02] MEDS: Venlafaxine 75 MG TAB PO ×2 (12:10→20:45)
[2020-11-02] MEDS: Sucralfate 1 GM TAB PO ×2 (12:11→18:32)
[2020-11-02] MEDS: Rifaximin 550 MG TAB PO ×2 (12:11→20:44)
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
--- NOTE | 2020-11-02 15:14 | CHAPLAIN ---
Maldonado was extubated this morning. He was sleeping when I visited. Dr. Zazueta is seeing him for Palliative Care and has been in touch with his son, Marycruz and his SO, Ama.
[2020-11-02] MEDS: Furosemide 20 MG/2 ML VIAL IVP (17:09)
[2020-11-02] MEDS: Propranolol 20 MG TAB PO (20:45)
[2020-11-02] MEDS: Insulin Glargine 300 UNITS/3 ML PEN 10 UNITS SC (22:16)
[2020-11-03] VITALS (20 sets, daily range): BP systolic 101–134; BP diastolic 58–99; PULSE 64–90; RESP 1–25; TEMP 36–36.9; O2SAT 95–100
[2020-11-03] MEDS: Sucralfate 1 GM TAB PO ×5 (05:44→23:42)
[2020-11-03] MEDS: Albuterol/Ipratropium 3 ML UPD VIAL UPD ×4 (05:44→23:42)
--- NOTE | 2020-11-03 06:06 | DI.RAD_ITS ---
EXAM: XR PORTABLE CHEST AP CLINICAL HISTORY: F/u intubated patient. TECHNIQUE: 2D digital imaging was performed. COMPARISON: CR XR PORTABLE CHEST AP from 11/02/2020 FINDINGS: The patient has been extubated. Chest leads in place. NG tube is been removed. Persistent left lower lobe infiltrate noted. Right lung appears clear. No obvious pleural effusions . No pneumothorax. Advanced degenerative changes in the glenohumeral joints again noted IMPRESSION: Extubate it. Left lower lobe infiltrate. No obvious pleural effusions evident on this portable AP v iew. DATA REPOSITORY: RADIATION DOSE DELIVERED: All CT scans at this facility use at least one of these dose optimization techniques: automated exposure control; mA and/or kV adjustment per patient size (includes targeted e xams where dose is matched to clinical indication); or iterative reconstruction.
[2020-11-03 06:30] LABS: Abs Immature Grans 0.02 10^3/uL (0.0-0.06); Absolute Basophil Count 0.07 10^3/uL (0.0-0.2); Absolute Eosinophil Count 0.52 10^3/uL (0.0-0.7); Absolute Lymphocyte Count 0.79 10^3/uL (1.2-3.4); Absolute Neutrophil Count 3.38 10^3/uL (1.2-6.7); Basophils % 1.3; Eosinophils % 9.8; HCT 29.7 % (40.0-50.0); HGB 9.9 g/dL (13.5-17.5); Immature Grans % 0.4; MCH 31.6 pg (27.0-33.0); MCHC 33.3 % (32.0-36.0); MCV 94.9 fL (80-95); MPV 9.7 fL (8.0-11.0); Monocytes % 9.5; Nucleated RBC 0 %; Platelet Count 51 10^3/uL (130-400); RBC 3.13 10^6/uL (4.36-5.78); RDW 16.4 % (11.8-14.1); RDW-SD 57.3 fL; WBC 5.28 10^3/uL (4.4-10.8)
[2020-11-03 06:39] LABS: Ammonia 21 umol/L (11-32)
[2020-11-03 06:42] LABS: ALT 15 U/L (16-63); AST 32 U/L (15-37); Albumin 2.2 g/dL (3.4-5.0); Alkaline Phosphatase 98 U/L (46-116); Anion Gap 10.8 mmol/L (3-11); BUN 29 mg/dL (7-18); Bilirubin, Total 4.8 mg/dL (0.2-1.0); CO2 22.2 mmol/L (21.0-32.0); CREATININE 2.2 mg/dL (0.70-1.30); Calcium 7.9 mg/dL (8.5-10.1); Chloride 108 mmol/L (98-107); Estimated GFR 29.25 (mL/min/1.73m2); Glucose 79 mg/dL (74-106); Potassium 3.4 mmol/L (3.5-5.1); Sodium 141 mmol/L (136-145); Total Protein 5.8 g/dL (6.4-8.2)
--- NOTE | 2020-11-03 06:48 | DI.VRAD_ITS ---
PROCEDURE INFORMATION: Exam: XR Chest Exam date and time: 11/03/2020 5:52 AM Age: 74 years old Clinical indication: Condition or disease; Other: F/u intubated patient TECHNIQUE: Imaging protocol: XR of the chest. Views: 1 view. COMPARISON: CR XR PORTABLE CHEST AP 11/02/2020 8:22 AM FINDINGS: Tubes, catheters and devices: ET tube not visualized Lungs: Unremarkable. No consolidation. Pleural spaces: Unremarkable. No pleural effusion. No pneumothorax. Heart/Mediastinum: Unremarkable. No cardiomegaly. Bones/joints: Unremarkable. IMPRESSION: No acute findings ET tube not visualized Dictated and Authenticated by: Robert Escalante MD. Ordering:LENO Fagan MD
--- NOTE | 2020-11-03 08:48 | PGE_ITS ---
Date of Service Date of service: 11/03/20 Time of Service: 08:49 Assessment and Plan Assessment and plan (1) HCAP (healthcare-associated pneumonia): Status: Acute Assessment and plan: LLL posterior basal infiltrate and RML atelectasis; cont. current ATB (Zosyn and Vancomycin) as above. cont. supportive care w/ IS, acapella, bronchodilators. Will check nasal swab for MRSA and if neg. dc his vancomyin (sputum from ET culture is only growing normal daria. (2) Ascites due to alcoholic cirrhosis: Status: Chronic Assessment and plan: cont. iv lasix and add albumin. hopefully tomorrow we can dc iv lasix and resume his torsemide. will replace his potassium and add spi ronolactone. repeat K level this afternoon and if over 4 then dc any K supplements as spironolactone should help keep his K within normal (3) IDDM (insulin dependent diabetes mellitus): Status: Chronic Assessment and plan: advance diet today to soft foods/small bites w/ thin liquids. continue basal/bolus insulin (4) End stage liver disease: Status: Chronic Assessment and plan: With known encephalopathy, portal hypertension, thrombocytopenia, coagulopathy. Will monitor for bleeding. Palliative care consult from Dr. Zazueta noted/appreciated. After she had lengthy discussion w/ family and Maldonado's S.O. , Dr. Zazueta changed his code status to DNR/DNI. Now that Maldonado is more alert and oriented, a discussion regarding completion of COLST (5) Afib: Status: Chronic Assessment and plan: chronic AF w/ rates well controlled. currently on propranolol. not candidate for anticoagulation d/t liver disease Qualifiers: Atrial fibrillation type: longstanding persistent Qualified Code(s): I48.11 - Longstanding persistent atrial fibrillation (6) Encephalopathy, hepatic: Status: Acute Assessment and plan: unclear as to what precipitated current hepatic encephalopathy whether non-compliance w/ meds vs infection (pneumonia/SBP); now having copious stools. cont. Rifaximin and lactulose (w/ holding parameters for >3 soft or liquid stools/day). ammonia level is within normal levels. (7) Discharge planning issues: Status: Acute Assessment and plan: patient likely will need short term SNF. will wait to see how he progresses over next 24 to 48 hr w/ therapy. (8) DVT prophylaxis: Status: Acute Assessment and plan: use TEDS, SCD; not candidate for anticoagulation for obvious reasons from his hepatic disease Subjective Subjective Interval history since last seen: Mr. Ruggiero is much more alert and oriented today. He walked around the room for P.T. and nursing w/ FWW and CGA x 2. He is oriented to person/place; but was off a little on the year (2022) but knew he was in the hospital and knew the month. He contiues to stool from the lactulose several BM liquid per day. He denies any chest pain or chest pressure or dyspnea. Initially he denied abdominal pain but when I pushed on his abdomen he seemed to wince a little bit. His abdomen started to get distended from his ascites. Exam Narrative Exam Narrative: Jaundiced elderly male sitting up at the bedside and ambulated for PT nursing using a gait belt front wheel walker. Lungs are clear anteriorly posteriorly has some bibasilar Rales Heart is irregularly irregular controlled rate Abdomen is distended soft with some mild tenderness no rebound tenderness. Positive fluid wave. Extremities with 1+ edema. Objective Last Vital Signs Temp 36.2 C L 11/03/20 04:07 Pulse 64 11/03/20 08:01 Resp 25 H 11/03/20 06:01 BP 124/60 11/03/20 08:01 Pulse Ox 100 11/03/20 08:01 Laboratory Results - last 24 hr 11/02/20 11/02/20 11/03/20 05:35 09:44 06:15 WBC RBC Hgb Hct MCV MCH MCHC RDW Plt Count MPV Immature Gran % Neutrophils % Lymphocytes % Monocytes % Eosinophils % Basophils % Nucleated RBC % Absolute Neutrophils Absolute Lymphocytes Absolute Monocytes Absolute Eosinophils Absolute Basophils ABG Sample Site Cancelled Cancelled ABG pH Cancelled Cancelled ABG pCO2 Cancelled Cancelled ABG pO2 Cancelled Cancelled ABG HCO3 Cancelled Cancelled ABG Total CO2 Cancelled Cancelled ABG O2 Saturation Cancelled Cancelled ABG Base Excess Cancelled Cancelled Oxygen Liter Flow Cancelled Cancelled FiO2 Cancelled Cancelled Sodium 141 Potassium 3.4 L D Chloride 108 H Carbon Dioxide 22.2 Anion Gap 10.8 BUN 29 H Creatinine 2.2 H Estimated GFR/1.73 m2 29.25 Glucose 79 D Calcium 7.9 L Total Bilirubin 4.8 H AST 32 ALT 15 L Alkaline Phosphatase 98 Ammonia Total Protein 5.8 L Albumin 2.2 L 11/03/20 11/03/20 06:15 06:15 WBC 5.28 RBC 3.13 L Hgb 9.9 L Hct 29.7 L MCV 94.9 MCH 31.6 MCHC 33.3 RDW 16.4 H Plt Count 51 L MPV 9.7 Immature Gran % 0.4 Neutrophils % 64.0 Lymphocytes % 15.0 Monocytes % 9.5 Eosinophils % 9.8 Basophils % 1.3 Nucleated RBC % 0 Absolute Neutrophils 3.38 Absolute Lymphocytes 0.79 L Absolute Monocytes 0.50 Absolute Eosinophils 0.52 Absolute Basophils 0.07 ABG Sample Site ABG pH ABG pCO2 ABG pO2 ABG HCO3 ABG Total CO2 ABG O2 Saturation ABG Base Excess Oxygen Liter Flow FiO2 Sodium Potassium Chloride Carbon Dioxide Anion Gap BUN Creatinine Estimated GFR/1.73 m2 Glucose Calcium Total Bilirubin AST ALT Alkaline Phosphatase Ammonia 21 Total Protein Albumin Reviewed Pertinent PMH: Yes Objective Narrative Objective Narrative: All labs reviewed. Rhythm remains afib at controlled rate in the 60's to 80.
[2020-11-03] MEDS: Venlafaxine 75 MG TAB PO ×2 (09:04→20:01)
[2020-11-03] MEDS: Rifaximin 550 MG TAB PO ×2 (09:04→20:01)
[2020-11-03] MEDS: Propranolol 20 MG TAB PO ×2 (09:04→20:01)
[2020-11-03] MEDS: Potassium Chloride Liquid 20 MEQ PKT PO ×3 (09:05→20:00)
[2020-11-03] MEDS: Furosemide 40 MG/4 ML VIAL IVP ×2 (09:14→16:48)
[2020-11-03] MEDS: Spironolactone 25 MG TAB PO (09:14)
[2020-11-03] MEDS: ALBUMIN HUMAN 25 GM/100 ML BTL IV (09:15)
[2020-11-03] MEDS: Normal Saline Flush 10 ML SYR IVP ×3 (09:19→23:46)
[2020-11-03] MEDS: Refresh PLUS Eye Drops 0.4ml OP (09:25)
--- NOTE | 2020-11-03 09:32 | CMPROGNOTE_ITS ---
- If Service Date Differs Date of service: 11/03/20 Time of Service: 09:32 Care Management Progress Note S/O:Maldonado was sitting up in bed when CM met with him. He was polite but did not offer much conversation.Today Maldonado appeared to be less confused than yesterday. He spoke of his family and informed CM that his daughter planned to bring him some things this evening. CM offered to coordinate another Facetime session with his family if desired. Maldonado is doing well clinically. His vital signs are stable and he is maintaining his oxygen saturation levels in the high 90's on room air. He will be transferred to the Med-Surg unit as soon as a bed is available. CM received a call from [facility] today acknowledging that they have received the referral sent. Because Maldonado is partially funded by the [place], there may be some complications with payment. A:Maldonado is a 74 year old man admitted to [facility] on 10/30/20 with acute respiratory failure P:Maldonado's disposition is not clear at this time. The family has requested that a referral be sent to [facility] with the hope of having Maldonado transfer there when he is ready for discharge. If so, he will follow up with the facility provider and plan of care. CM will continue to support the patient, family and discharge planning needs.
--- NOTE | 2020-11-03 10:03 | W.NUTCONSULT ---
Date of service: 11/03/20 Time of Service: 10:03 Nutritional Consult ASSESSMENT: Maldonado was extubated yesterday (11/02/20), tolerating clear liquid diet and advanced today to hepatic low sodium diet with 1500 ml fluid restriction. Labs indicates ammonia wnl. No need to limit protein intake at this time. Will provide low sodium/fluid restriction diet in order to minimize ascites. Albumin low, as expected with liver failure. BMI indicates obesity. PMH: IDDM, well controlled with current meds. Estimated Needs: 2105-1710 kcal, 60-70 g protein (based on IBW), 1500 ml fluid NUTRITIONAL DIAGNOSIS: Impaired nutrient utilization in view of liver failure INTERVENTION: Low Sodium soft bite sized diet with 1500 ml fluid restriction. At this time, will not need to restrict protien intake as ammonia levels wnl MONITORING AND EVALUATION: weight, ammonia levels, po intake Time Spent in Nutritional Counseling and Treatment: 10 min
[2020-11-03] MEDS: PIPERACILLIN/TAZO 3.375 GM in Normal Saline 50 ML IVPB (12:47)
--- NOTE | 2020-11-03 13:55 | PTTR_ITS ---
Date of service: 11/03/20 Time of Service: 08:30 PT Notes Visit Reasons: ACUTE RESPIRATORY FAILURE IN SETTING OF HEPATIC EN Inpatient Physical Therapy Treatment Note [facility] Date: 11/03/2020 PRECAUTIONS: Fall SUBJECTIVE: Maldonado states that he is not feeling well today. He does not want to walk, he reports that he wants to call his daughter so she can take him home. OBJECTIVE: PAIN: Patient c/o B ankle pain with weight bearing BED MOBILITY/TRANSFERS Supine-sit: Min A with HOB at 30 degrees Sit-stand: CGA x2 Stand-sit: CGA x2 GAIT Assistive Device: FWW in a.m.; [employer] x2 in p.m. Weight bearing: Full Assist: CGA in a.m.; Min A in p.m. Distance: 20' in a.m.; 5 side steps + 3 side steps in p.m. Deviation: Constant cueing to stay on task, Min A for FWW management, slow katerina, low step height THEREX: Patient completed ankle pumps and LAQ exercises, however, refused continued participation in further exercise. TOILETING: Patient toileted with assist ASSESSMENT: Patient tolerated session with complaint of pain and increased fatigue. He attempted to decline to work with PT, although was convinced to complete some gait training and ther ex. PLAN: Continue with gait training as well as global strengthening for improved mobility and activity tolerance. TREATMENT CODE/TIME: Session 1: 30 minutes; [id number] x2 (08:30) Session 2: 25 minutes; [id number] (13:05)
--- NOTE | 2020-11-03 13:56 | CHAPLAIN ---
Maldonado was sitting up in a chair when I visited. This is the first time I visited with him since he was extubated. I introduced myself and explained my role. Maldonado was not very talkative. He said he could not contact family because he can't dial the phone. Care Management is arranging for a Facetime conversation with Bright and his son, and SO, according to Dr. Zazueta's Palliative Care notes.
[2020-11-03 15:00] LABS: Potassium 3.6 mmol/L (3.5-5.1)
[2020-11-03] MEDS: Insulin Aspart 300 UNITS/3 ML PEN SC ×2 (16:49→21:42)
[2020-11-03] MEDS: Psyllium PKT 1 EACH PO ×2 (16:50→20:01)
[2020-11-03 18:27] LABS: Vancomycin, Trough 25.2 ug/mL (10.0-20.0)
[2020-11-03 19:17] LABS: C Diff PCR Negative (Negative)
[2020-11-03] MEDS: Lactulose 20 GM/30 ML CUP 30 GM PO (20:00)
[2020-11-03] MEDS: Lactobacillus Acidophilus CAP 1 CAP PO (20:01)
[2020-11-03] MEDS: Pantoprazole 40 MG TABCR PO (20:02)
[2020-11-03] MEDS: Acetaminophen Solution 650 MG/20.3 ML CUP PO ×2 (20:09)
[2020-11-03] MEDS: Insulin Glargine 300 UNITS/3 ML PEN 10 UNITS SC (21:43)
[2020-11-03] MEDS: VANCOMYCIN/WATER (PEG) 1 GM/200 ML BAG IV (23:45)
[2020-11-04] MEDS: PIPERACILLIN/TAZO 3.375 GM in Normal Saline 50 ML IVPB (00:31)
[2020-11-04 05:23] VITALS: BP 145/84; PULSE 65; RESP 19; TEMP 36.2; O2SAT 98
[2020-11-04 05:48] VITALS: RESP 1; RESP 8; O2SAT 98
[2020-11-04] MEDS: Albuterol/Ipratropium 3 ML UPD VIAL UPD (05:48)
[2020-11-04] MEDS: Sucralfate 1 GM TAB PO ×2 (05:48→11:53)
[2020-11-04 07:41] VITALS: BP 101/65; PULSE 80; RESP 19; TEMP 36.6; O2SAT 99
[2020-11-04] MEDS: Insulin Aspart 300 UNITS/3 ML PEN SC ×2 (07:59→11:53)
[2020-11-04] MEDS: Psyllium PKT 1 EACH PO (07:59)
[2020-11-04] MEDS: Lactulose 20 GM/30 ML CUP 30 GM PO (07:59)
[2020-11-04] MEDS: Rifaximin 550 MG TAB PO (08:00)
[2020-11-04] MEDS: Torsemide 20 MG TAB 40 MG PO (08:00)
[2020-11-04] MEDS: Pantoprazole 40 MG TABCR PO (08:00)
[2020-11-04] MEDS: Lactobacillus Acidophilus CAP 1 CAP PO (08:00)
[2020-11-04] MEDS: Spironolactone 25 MG TAB PO (08:00)
[2020-11-04] MEDS: Propranolol 20 MG TAB PO (08:00)
[2020-11-04] MEDS: Venlafaxine 75 MG TAB PO (08:00)
[2020-11-04 08:52] LABS: Abs Immature Grans 0.03 10^3/uL (0.0-0.06); Absolute Basophil Count 0.09 10^3/uL (0.0-0.2); Absolute Eosinophil Count 0.54 10^3/uL (0.0-0.7); Absolute Lymphocyte Count 0.84 10^3/uL (1.2-3.4); Absolute Monocyte Count 0.86 10^3/uL (0.1-0.8); Absolute Neutrophil Count 4.47 10^3/uL (1.2-6.7); Basophils % 1.3; Eosinophils % 7.9; HCT 34.2 % (40.0-50.0); HGB 11.4 g/dL (13.5-17.5); Immature Grans % 0.4; Lymphocytes % 12.3; MCH 31.6 pg (27.0-33.0); MCHC 33.3 % (32.0-36.0); MCV 94.7 fL (80-95); MPV 8.9 fL (8.0-11.0); Monocytes % 12.6; Nucleated RBC 0 %; RBC 3.61 10^6/uL (4.36-5.78); RDW 16.1 % (11.8-14.1); RDW-SD 56.1 fL; WBC 6.83 10^3/uL (4.4-10.8)
[2020-11-04 08:57] LABS: Anion Gap 10.1 mmol/L (3-11); BUN 24 mg/dL (7-18); CO2 21.9 mmol/L (21.0-32.0); CREATININE 2.1 mg/dL (0.70-1.30); Calcium 8.2 mg/dL (8.5-10.1); Chloride 109 mmol/L (98-107); Estimated GFR 30.86 (mL/min/1.73m2); Glucose 186 mg/dL (74-106); Potassium 3.9 mmol/L (3.5-5.1); Sodium 141 mmol/L (136-145)
[2020-11-04 09:02] LABS: Diff Comment Diff Reviewed; Neutrophils % 65.5; Platelet Count 65 10^3/uL (130-400)
[2020-11-04 09:03] LABS: RBC Morphology Normal
--- NOTE | 2020-11-04 09:32 | PDOC.CMPRO ---
- If Service Date Differs Date of service: 11/04/20 Time of Service: 09:32
--- NOTE | 2020-11-04 09:34 | PT.INTREAT ---
Date of service: 11/04/20 Time of Service: 09:00 PT Notes Visit Reasons: ACUTE RESPIRATORY FAILURE IN SETTING OF HEPATIC EN Inpatient Physical Therapy Treatment Note [facility] Date: 11/04/2020 PRECAUTIONS: Fall SUBJECTIVE: Maldonado initially reports that he is feeling better, then reports that he has a OLIVIA this morning and back pain with standing. OBJECTIVE: PAIN: Patient c/o back pain with gait training. BED MOBILITY/TRANSFERS Sit-stand: Min A x2 Stand-sit: Min A x2 GAIT Assistive Device: FWW Weight bearing: Full Assist: CGA x2 Distance: 15' Deviation: Constant cueing to stay on task, Min A for FWW management, slow katerina, low step height Static standing x2 minutes with CGA and FWW support TOILETING: Patient was incontinent of stool, requiring Max A ASSESSMENT: Patient tolerated session with complaint of back pain and increased fatigue with gait training. He continues to spend the majority of the session with his eyes closed, and was c/o OLIVIA this morning. He also continues to require constant cueing to stay on task, and significant encouragement to participate. PLAN: Continue with gait and transfer training as well as global strengthening for improved mobility and activity tolerance. TREATMENT CODE/TIME: 30 minutes; [id number] x2 (09:00)
[2020-11-04 10:47] LABS: Source Nasal/Nares
--- NOTE | 2020-11-04 11:06 | NUR.NOTE ---
Received wound care orders from [facility] via fax at 0930 this morning. Nursing Note:
[2020-11-04 11:30] VITALS: BP 138/74; PULSE 86; RESP 18; TEMP 36.5; O2SAT 99
[2020-11-04 11:47] LABS: COVID-19 PCR Negative (Negative)
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
--- NOTE | 2020-11-04 14:23 | NUR.NOTE ---
call from ESTHER Kyle at [facility] for report-all questions answered Nursing Note:
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
--- NOTE | 2020-11-04 16:26 | CMDISCH_ITS ---
- If Service Date Differs Date of service: 11/04/20 Time of Service: 16:27 LACE Index Scoring Tool - Questions: Length of Stay (in days): 4 - 6 Acuity (Admit via E.D.?): Yes Comorbidities: Liver or Renal Disease E.D. Visits: 1 - Answers: Total Score: 13 Risk of Readmission: High Risk Care Management Discharge Reason for Hospitalization: Respiratory failure Discharge Plan: Maldonado will return to [facility] when medically cleared. He will follow up with the facility provider and plan of care and transport via facility w/c van. The family expressed a preference for Maldonado to go to [facility] in [place], however they will pursue the transfer from the commmunity[facility]. Patient/Family Education Needs: Review of discharge instructions, medications, follow up plan, limitations, Ask Me Three. Services Needed at Discharge: Half-Way Facility
== END 2020-11-04 13:03 | disposition skilled nursing facility (03) | DRG 208 ==
LOC: ER 12:51 → ICU 12:52 → MS 11-03 16:22
PROVIDERS: General Practice; Internal Medicine; Admitting Provider Internal Medicine; Emergency Provider Student in an Organized Health Care Education/Training Program; PCP Physician Assistant; Visit Provider Internal Medicine
DX: J18.9 Pneumonia, unspecified organism (principal); J96.00 Acute respiratory failure, unspecified whether with hypoxia or hypercapnia; K76.6 Portal hypertension; I50.30 Unspecified diastolic (congestive) heart failure; I13.0 Hypertensive heart and chronic kidney disease with heart failure and stage 1 through stage 4 chronic kidney disease, or unspecified chronic kidney disease; I85.10 Secondary esophageal varices without bleeding; D68.4 Acquired coagulation factor deficiency; I48.11 Longstanding persistent atrial fibrillation; K70.40 Alcoholic hepatic failure without coma; K70.31 Alcoholic cirrhosis of liver with ascites; Z79.4 Long term (current) use of insulin; D69.6 Thrombocytopenia, unspecified; D64.9 Anemia, unspecified; R40.2432 Glasgow coma scale score 3-8, at arrival to emergency department; Z20.822 Contact with and (suspected) exposure to COVID-19; F10.21 Alcohol dependence, in remission; I35.0 Nonrheumatic aortic (valve) stenosis; R27.0 Ataxia, unspecified; M54.2 Cervicalgia; D73.2 Chronic congestive splenomegaly; G89.29 Other chronic pain; N18.9 Chronic kidney disease, unspecified; E11.22 Type 2 diabetes mellitus with diabetic chronic kidney disease; K44.9 Diaphragmatic hernia without obstruction or gangrene; E78.5 Hyperlipidemia, unspecified; R29.6 Repeated falls; G47.00 Insomnia, unspecified; F32.9 Major depressive disorder, single episode, unspecified; G47.33 Obstructive sleep apnea (adult) (pediatric); M19.09 Primary osteoarthritis, other specified site; F41.0 Panic disorder [episodic paroxysmal anxiety]; K27.9 Peptic ulcer, site unspecified, unspecified as acute or chronic, without hemorrhage or perforation; I87.2 Venous insufficiency (chronic) (peripheral)
CPT/HCPCS: 31500; 36410; 36415; 36416; 36430; 36592; 71045; 76942; 80048; 80053; 80076; 82805; 82962; 86850; 86900; 86901; 86920; 87040; 87081; 87493; 87635; 93005; 96361; 96365; 96366; 96368; 96375; 97110; 97162; 97530; 99291; 36600; 70450; 80202; 81003; 81015; 82140; 83605; 83735; 84132; 84295; 84443; 84484; 85014; 85018; 85025; 85610; 85730; 87070; 87086; 87205; 93010; 94002; 94003; 94640; 94667; 99232; 99233; 99239; J1940; J1941; J2543; J3010; J3430; J3490; J7620; P9012; P9016

== ENCOUNTER 2020-11-05 15:14 | Outpatient (REF) | payer MEDICARE, SELFPAY ==
[2020-11-08 07:37] LABS: COVID-19 RT-PCR Result Not Detected ((See Note))
== END 2020-11-05 15:15 | disposition home or self-care (01) ==
LOC: LBN 15:14
PROVIDERS: PCP Physician Assistant; Visit Provider Nurse Practitioner Adult Health
DX: Z20.822 Contact with and (suspected) exposure to COVID-19 (principal)
CPT/HCPCS: U0003

== ENCOUNTER 2020-11-11 15:14 | Outpatient (REF) | payer MEDICARE, SELFPAY ==
[2020-11-11 16:18] LABS: ALT 31 U/L (16-63); AST 29 U/L (15-37); Albumin 2.5 g/dL (3.4-5.0); Alkaline Phosphatase 139 U/L (46-116); Anion Gap 9.3 mmol/L (3-11); BUN 23 mg/dL (7-18); Bilirubin, Total 2.3 mg/dL (0.2-1.0); C-Reactive Protein 0.68 mg/dL (0.0-0.3); CO2 23.7 mmol/L (21.0-32.0); CREATININE 2.3 mg/dL (0.70-1.30); Calcium 8.4 mg/dL (8.5-10.1); Chloride 105 mmol/L (98-107); Estimated GFR 27.78 (mL/min/1.73m2); Glucose 329 mg/dL (74-106); Magnesium 1.8 mg/dL (1.8-2.4); Potassium 3.8 mmol/L (3.5-5.1); Sodium 138 mmol/L (136-145); Total Protein 6.6 g/dL (6.4-8.2)
[2020-11-11 16:25] LABS: Hemoglobin A1C 5.2 % (<5.7)
[2020-11-11 16:30] LABS: Abs Immature Grans 0.03 10^3/uL (0.0-0.06); Absolute Eosinophil Count 0.47 10^3/uL (0.0-0.7); Absolute Lymphocyte Count 0.71 10^3/uL (1.2-3.4); Absolute Monocyte Count 0.65 10^3/uL (0.1-0.8); Absolute Neutrophil Count 4.97 10^3/uL (1.2-6.7); Basophils % 1.4; Eosinophils % 6.8; HCT 30.5 % (40.0-50.0); HGB 10.6 g/dL (13.5-17.5); Immature Grans % 0.4; Lymphocytes % 10.2; MCH 31.7 pg (27.0-33.0); MCHC 34.8 % (32.0-36.0); MCV 91.3 fL (80-95); Monocytes % 9.4; Neutrophils % 71.8; Nucleated RBC 0 %; Platelet Count 129 10^3/uL (130-400); RBC 3.34 10^6/uL (4.36-5.78); RDW 17.2 % (11.8-14.1); RDW-SD 57.8 fL; WBC 6.93 10^3/uL (4.4-10.8)
== END 2020-11-11 15:15 | disposition home or self-care (01) ==
LOC: LBN 15:14
PROVIDERS: PCP Physician Assistant; Visit Provider Family Medicine
DX: K70.31 Alcoholic cirrhosis of liver with ascites (principal); E11.9 Type 2 diabetes mellitus without complications; N18.9 Chronic kidney disease, unspecified
CPT/HCPCS: 80053; 83036; 83735; 85025; 86140

== ENCOUNTER 2020-11-13 15:40 | Outpatient (REF) | payer MEDICARE, SELFPAY ==
[2020-11-16 08:23] LABS: COVID-19 RT-PCR Result Not Detected ((See Note))
== END 2020-11-13 15:41 | disposition home or self-care (01) ==
LOC: LBN 15:40
PROVIDERS: PCP Physician Assistant; Visit Provider Family Medicine
DX: Z20.822 Contact with and (suspected) exposure to COVID-19 (principal)
CPT/HCPCS: U0003

== ENCOUNTER 2020-11-26 12:20 | Emergency (ER) | payer SELFPAY ==
[2020-11-26] VITALS (16 sets, daily range): BP systolic 128–140; BP diastolic 60–71; PULSE 35–75; RESP 0–22; TEMP 36.3–36.4; O2SAT 97–100
--- NOTE | 2020-11-26 12:06 | W.ED.GENAD ---
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 compression Skin General skin exam: no rashes or lesions noted Neuro General: patient alert and patient awake Cognition: normal cognition Speech: speech normal Gait: normal gait Motor: muscle tone normal throughout Sensory Exam: no sensory deficits noted Extrem Other: Multiple skin tears to b/l forearms. 1cm straight laceration noted to R olecranon with overlying skin tear, oozing of blood. Chronic wounds to b/l lower anterior legs, dressed in xeroform. No cellulitis. Psych Appearance: grossly normal Mental Status: mental status grossly normal Speech and Movement: speech and movement normal Affect: normal affect Thought Process: normal
--- NOTE | 2020-11-26 12:30 | RT.EKG_ITS ---
APPROVED REPORT Exam: Resting ECG Reason for Exam: fall Patient Location: E HR:69 bpm ECG Measurements Heart Rate 69 AXIS [place] [id number] P [id number] QRSd 105 QRS 7 QT 441 T 41 QTc 473 Conclusion Atrial fibrillation...V-rate 56- 68, irreg A-activity Ventricular premature complex...V complex w/ short R-R interval Low voltage, extremity leads...all extremity leads <0.5mV I have reviewed and interpreted ECG and agree with software generated interpretation.
--- NOTE | 2020-11-26 12:45 | DI.CT_ITS ---
Exam(s) CT HEAD CERVICAL SPINE WO EXAM: CT HEAD CERVICAL SPINE WO COMPARISON: CT CT HEAD WO from 10/30/2020 FINDINGS: CT examination of the cervical spine was performed without contrast administration. There are moderate to severe degenerative changes of the cervical spine. There is no evidence of acute cervical spine fracture or dislocation. Intervertebral disc spaces are well maintained. Tracheolaryngeal structures appear intact. No cervical mass or adenopathy. Noncontrast cranial CT was performed. There is moderate generalized cerebral atrophy. No evidence of acute intracranial hemorrhage, mass effect, or midline shift. No calvarial fracture. The orbital and temporal bone structures appear intact. Visualized mastoid air cells and paranasal sinuses appear clear. IMPRESSION: No evidence of acute cervical spine injury. No evidence of acute intracranial injury. RADIATION DOSE DELIVERED: 1,371.84mGy.cm Total DLP 1,371.84mGy.cm Total DLP DATA REPOSITORY: All CT scans at this facility are submitted to the National Radiology Data Registry (NRDR) Dose Index Registry (DIR) with the [employer] ([employer]). RADIATION OPTIMIZATION: All CT scans at this facility use at least one of these dose optimization te chniques: automated exposure control; mA and/or kV adjustment per patient size (includes targeted exa ms where dose is matched to clinical indication); or iterative reconstruction.
--- NOTE | 2020-11-26 12:45 | DI.CT_ITS ---
Exam(s) CT CHEST/ABD/PEL WO CT THORACIC LUMBAR SPINE REC EXAM: CT CHEST/ABD/PEL WO TECHNIQUE: CT examination of the chest, abdomen, and pelvis was performed with bolus infusion of 100 cc of Omnipaque 350. COMPARISON: CR,XR XR PORTABLE CHEST AP from 11/03/[address] THORACIC LUMBAR SPINE REC from 11/26/2020 CR XR ELBOW RT COMPLETE from 11/26/2020 FINDINGS: There is no evidence of a thoracic vascular injury. The lungs are clear. No pneumothorax. There is a large left pleural effusion which appears to be a sympathetic effusion in a patient with ascites.. No mediastinal hematoma. No adenopathy in the chest. Tracheobronchial tree appears intact. Cardiome ramy and coronary artery calcification noted. The liver is shrunken and very nodular in contour consistent with chronic cirrhosis. There is spleno megaly. There is heterogeneous appearance of hepatic parenchyma. There is severe abdominal ascites. No gross abnormality of the pancreas. Adrenals and kidneys are unremarkable. No evidence of urinary tract injury or obstruction. No abdominal or pelvic vascular injury seen. No abdominal or pelvic adenopathy. No significant abdomi nal wall hernia or hematoma. No evidence of bowel injury. There are mild anterior compression fractures of the vertebral bodies of T12 and L1. No apparent inv olvement of posterior vertebral cortex or posterior elements of T12 vertebra. There is mild deformit y of the posterior vertebral cortex of the L1 vertebral body. 3 millimeter retropulsion of superior endplate. No involvement of the posterior elements. Loss of height anteriorly of T12 is estimated a t 10 percent, loss of height anteriorly of L1 is estimated at 40 percent. IMPRESSION: T12 and L1 vertebral compression fractures. T12 fracture has characteristics consistent with a stabl e injury with involvement of the anterior column only. The L1 vertebral fracture also appears to inv olve the middle column as well as anterior column and is potentially unstable fracture. There is no significant narrowing of the spinal canal. Possible retropulsion of superior endplate of L1 estimate d at 3 millimeters or less. No evidence of significant visceral injury. Severe ascites and left pleural effusion, apparent hepatic cirrhosis and splenomegaly. RADIATION DOSE DELIVERED: Total DLP Total DLP Total DLP DATA REPOSITORY: All CT scans at this facility are submitted to the National Radiology Data Registry (NRDR) Dose Index Registry (DIR) with the [employer] ([employer]). RADIATION OPTIMIZATION: All CT scans at this facility use at least one of these dose optimization te chniques: automated exposure control; mA and/or kV adjustment per patient size (includes targeted exa ms where dose is matched to clinical indication); or iterative reconstruction.
--- NOTE | 2020-11-26 13:30 | DI.RAD_ITS ---
Exam(s) XR ELBOW RT COMPLETE EXAM: XR ELBOW RT COMPLETE CLINICAL HISTORY: s/p fall, r/o acute fx TECHNIQUE: COMPARISON: No exams were available for comparison FINDINGS: Four views were obtained. There may be mild elevation of the anterior fat pad of the humerus raising the possibility of a small effusion. No fracture identified on these views. Possibility of occult fracture not excluded, follow-up radiographs made be obtained in 10-14 days if clinically appropriate . IMPRESSION: RADIATION DOSE DELIVERED: Total DLP
[2020-11-26] MEDS: Normal Saline 250 ML 500 ML IV (13:45)
[2020-11-26] MEDS: ACETAMINOPHEN 1,000 MG/100 ML BTL 400 MG IVPB (13:57)
[2020-11-26 15:06] LABS: Abs Immature Grans 0.05 10^3/uL (0.0-0.06); Absolute Eosinophil Count 0.34 10^3/uL (0.0-0.7); Absolute Lymphocyte Count 0.66 10^3/uL (1.2-3.4); Absolute Monocyte Count 0.67 10^3/uL (0.1-0.8); Absolute Neutrophil Count 6.08 10^3/uL (1.2-6.7); Basophils % 1.3; Eosinophils % 4.3; HCT 33.8 % (40.0-50.0); HGB 11.6 g/dL (13.5-17.5); Immature Grans % 0.6; Lymphocytes % 8.4; MCH 31.8 pg (27.0-33.0); MCHC 34.3 % (32.0-36.0); MCV 92.6 fL (80-95); MPV 9.4 fL (8.0-11.0); Monocytes % 8.5; Neutrophils % 76.9; Nucleated RBC 0 %; Platelet Count 76 10^3/uL (130-400); RBC 3.65 10^6/uL (4.36-5.78); RDW 17.3 % (11.8-14.1); RDW-SD 58.4 fL
[2020-11-26 15:21] LABS: INR 1.4 (0.9-1.1); PTT Activated 31.9 sec (21.0-27.5); Prothrombin Time 13.8 sec (9.3-11.0)
[2020-11-26 15:23] LABS: Diff Comment Diff Reviewed; RBC Morphology Normal
[2020-11-26 15:29] LABS: Bilirubin Negative (Negative); Blood Small (Negative); Clarity Clear (Clear); Glucose Negative (Negative); Ketones Negative (Negative); Leukocyte Esterase Negative (Negative); Nitrite Negative (Negative); Specific Gravity 1.015 (1.005-1.025); Urobilinogen 0.2 EU/dL (Up TO 0.2); pH 5.5 (5-8)
[2020-11-26 15:30] LABS: ALT 33 U/L (16-63); AST 35 U/L (15-37); Albumin 2.6 g/dL (3.4-5.0); Alkaline Phosphatase 174 U/L (46-116); Anion Gap 10.1 mmol/L (3-11); BUN 24 mg/dL (7-18); CO2 24.9 mmol/L (21.0-32.0); CREATININE 2.4 mg/dL (0.70-1.30); Calcium 8.8 mg/dL (8.5-10.1); Chloride 108 mmol/L (98-107); Estimated GFR 26.45 (mL/min/1.73m2); Glucose 253 mg/dL (74-106); Magnesium 1.7 mg/dL (1.8-2.4); Potassium 3.6 mmol/L (3.5-5.1); Sodium 143 mmol/L (136-145); Total Protein 7.2 g/dL (6.4-8.2); Troponin I < 0.05 ng/mL (<0.06)
[2020-11-26 15:35] LABS: Bacteria Negative HPF (Negative); C & S Indicated? No; Casts 0-2 Hyaline LPF (Negative); Crystals Negative HPF (Negative); Epithelial Cells Few HPF (Negative); Mucus Negative (Negative); RBC 0-2 HPF (0-2); WBC 0-2 HPF (0-5)
--- NOTE | 2020-11-26 16:09 | NUR.NOTE ---
pt has 2 sutures and an aleyda wrap with a sling on his right elbow. he has a spandage head band on his head for the abraision on his right forehead he stood for an upright x ray and tolerated it well.Nursing Note:
--- NOTE | 2020-11-26 16:10 | DI.RAD_ITS ---
Exam(s) XR LUMBAR SPINE COMPLETE XR THORACIC SPINE COMPLETE EXAM: XR LUMBAR SPINE COMPLETE CLINICAL HISTORY: T12 comp fx, assess for stability, canal stenosis TECHNIQUE: COMPARISON: CR,XR XR THORACIC SPINE COMPLETE from 11/26/2020 FINDINGS: Two views of the thoracic spine and two views of the lumbar spine were obtained. There are anterior compression fractures of T12 and L1, as noted on today's CT examination. No other significant findin g apart from degenerative changes. Please see accompanying CT report. IMPRESSION: RADIATION DOSE DELIVERED: Total DLP
--- NOTE | 2020-11-26 16:30 | DI.VRAD_ITS ---
PROCEDURE INFORMATION: Exam: XR Lumbosacral Spine Exam date and time: 11/26/2020 3:39 PM Age: 74 years old Clinical indication: Injury or trauma; Blunt trauma (contusions or hematomas); Injury date: 11/26/20; Injury details: Fall today. ; Patient HX: Best images, limited exam due to patient condition. TECHNIQUE: Imaging protocol: XR of the lumbosacral spine. Views: 4 or 5 views. COMPARISON: CT THORACIC LUMBAR SPINE REC 11/26/2020 2:23 PM FINDINGS: Bones/joints: Left dynamic hip screw noted. The bone mineralization appears decreased. There is a significant compression deformity at L1 with probable mild retropulsion. Remaining vertebral body heights are fairly well preserved. Soft tissues: Unremarkable. Gastrointestinal tract: Extensive bowel gas obscures frontal detail. There are scattered air-fluid levels noted. Vasculature: Mild atherosclerotic change seen in the vasculature. IMPRESSION: Slightly limited exam due to overlying bowel gas. L1 compression deformity unchanged from recent CT exam. No new fracture evident. Dictated and Authenticated by: Gissell Jhaveri MD. Ordering:TOBY Nair MD
--- NOTE | 2020-11-26 16:39 | DI.VRAD_ITS ---
PROCEDURE INFORMATION: Exam: XR Thoracic Spine Exam date and time: 11/26/2020 3:39 PM Age: 74 years old Clinical indication: Injury or trauma; Blunt trauma (contusions or hematomas); Injury date: 11/26/20; Injury details: Fall today; Patient HX: Best images obtained due to patient condition, patient unable to stand well limited exam. TECHNIQUE: Imaging protocol: XR of the thoracic spine. Views: 3 views. COMPARISON: CT THORACIC LUMBAR SPINE REC 11/26/2020 2:23 PM FINDINGS: Bones/joints: There is mild elevation of the left hemidiaphragm. Compression fracture at L1 is again seen and not significantly changed allowing for technical differences. There is mild compression deformity at T12 unchanged from prior exam. No new fractures evident. Soft tissues: Unremarkable. Pleural space: Minimal left lung base pleural effusion. Heart/Mediastinum: Cardiomegaly. Vasculature: Atherosclerotic change noted in the vasculature. IMPRESSION: Compression fractures T12 and L1 not significantly changed from prior study allowing for technical differences. Dictated and Authenticated by: Gissell Jhaveri MD. Ordering:TOBY Nair MD
--- NOTE | 2020-11-26 18:01 | NUR.NOTE ---
Nursing Note: wsent referral request to CM
== END 2020-11-26 17:53 | disposition home or self-care (01) ==
PROVIDERS: Emergency Provider Physician Assistant; PCP Physician Assistant
DX: S22.080A Wedge compression fracture of T11-T12 vertebra, initial encounter for closed fracture (principal); S32.010A Wedge compression fracture of first lumbar vertebra, initial encounter for closed fracture; M25.421 Effusion, right elbow; S51.011A Laceration without foreign body of right elbow, initial encounter; S00.83XA Contusion of other part of head, initial encounter; W19.XXXA Unspecified fall, initial encounter
CPT/HCPCS: 12001; 36416; 71250; 80053; 82962; 93005; 96365; 96375; 99285; 70450; 72072; 72110; 72125; 73080; 74176; 81003; 81015; 83735; 84484; 85025; 85610; 85730; 93010; 99284; J0131